=== PATIENT | female | born 1970 | race African-American/Black ===

== ENCOUNTER 2021-07-15 16:53 | Observation (INO) | payer MEDICARE, MEDICAID, SELFPAY ==
[2021-07-15] VITALS (26 sets, daily range): BP systolic 82–163; BP diastolic 55–119; PULSE 60–82; RESP 10–27; TEMP 36.3–36.8; O2SAT 94–100
--- NOTE | ~2021-07-15 | XR_ITS ---
EXAMINATION: XR chest 1V portable INDICATION: Shortness of breath TECHNIQUE: Portable AP chest at 1723 hours COMPARISON: 09/26/2017 FINDINGS: Cardiomegaly is noted. There is a diffuse interstitial pattern. No definite pleural effusio n is identified. There is no pneumothorax. A dual-lead cardiac pacemaker of the left chest wall ends with leads in expected locations. IMPRESSION: 1. Cardiomegaly with moderate pulmonary edema. Reviewed, dictated and finalized at location A.
--- NOTE | 2021-07-15 17:02 | ECG_ITS ---
Measurements Intervals [place] Rate: 70 P: 55 ND: 196 QRS: -31 QRSD: 159 T: 81 QT: 446 QTc: 482 Interpretive Statements SINUS RHYTHM FREQUENT VENTRICULAR PREMATURE COMPLEXES BORDERLINE AV CONDUCTION DELAY LEFT BUNDLE BRANCH BLOCK ABNORMAL ECG Electronically Signed On 07-18-2021 14:42:46 CDT by Horacio Montes De Oca D.O.
--- NOTE | 2021-07-15 17:08 | ED.SOB ---
HPI - SOB/Dyspnea General Chief Complaint: Shortness of Breath/Dyspnea <Ryann Duncan PA-C - Last Filed: 07/15/21 22:27> Stated Complaint: SOB <Ryann Duncan PA-C - Last Filed: 07/15/21 22:27> Time Seen by Provider: 07/15/21 17:00 <DECLAN Caldwell Last Filed: 07/15/21 22:27> Source: patient <DECLAN Caldwell Last Filed: 07/15/21 22:27> Mode of arrival: EMS <DECLAN Caldwell Last Filed: 07/15/21 22:27> Limitations: no limitations <DECLAN Caldwell Last Filed: 07/15/21 22:27> History of Present Illness HPI Narrative: Patient is a 51 y/o F who presents to the ED via EMS with report of increased SOB. Patient has a history of CHF, CKD, pacemaker/defibrillator, diabetes mellitus, hypertension, hyperlipidemia, obesity. She chronically wears 2 L nasal cannula oxygen at home. She reports over the last week she has had increased shortness of breath with exertion and laying flat. She states she used to be able to walk from 1 end to her house to the other before she would feel short of breath but now she is only able to take a few steps before she has to stop and catch her breath. She also reports having increased bilateral lower extremity edema over the past week. She does take Lasix 40 mg twice a day. She states her large animal husbandry technician attempted to switch her to torsemide last week and she took this for 4 days but denied any relief of her fluid retention and stopped taking it, and has since switched back to her Lasix. Patient also reports having occasional cough and congestion, but denies any fever, chills, chest pain, abdominal pain, nausea, vomiting. Patient's wire stripping machine operator is Dr. Vo at [facility]. <Ryann Duncan PA-C - Last Filed: 07/15/21 22:27> Related Data Home Medications: Home Medications Medication Instructions Recorded Confirmed allopurinol 100 mg DAILY 07/15/21 07/16/21 bupropion HCl 300 mg PO DAILY 07/15/21 07/16/21 calcitriol 0.25 mcg PO DAILY 07/15/21 07/16/21 carvedilol 25 mg PO BID 07/15/21 07/16/21 empagliflozin [Jardiance] 10 mg PO DAILY 07/15/21 07/16/21 ergocalciferol (vitamin D2) 50,000 unit PO WEEKLY 07/15/21 07/16/21 escitalopram oxalate 20 mg PO DAILY 07/15/21 07/16/21 ferrous sulfate [FeroSul] 325 mg PO DAILY 07/15/21 07/16/21 furosemide 40 mg PO BID 07/15/21 07/16/21 insulin aspart U-100 [Novolog 23 unit SUBCUT DAILY 07/15/21 07/16/21 U-100 Insulin aspart] insulin detemir U-100 [Levemir 17 unit SUBCUT HS 07/15/21 07/16/21 FlexTouch U-100 Insuln] isosorbide mononitrate 30 mg PO DAILY 07/15/21 07/16/21 ivabradine [Corlanor] 5 mg PO BID 07/15/21 07/16/21 losartan 50 mg PO DAILY 07/15/21 07/16/21 quetiapine 400 mg PO HS 07/15/21 07/16/21 rosuvastatin 5 mg PO DAILY 07/15/21 07/16/21 albuterol sulfate 2 puff BYMOUTH DAILY PRN 07/16/21 07/16/21 <Ryann Duncan PA-C - Last Filed: 07/15/21 22:27> Allergies/Adverse Reactions: Allergies Allergy/AdvReac Type Severity Reaction Status Date / Time No Known Allergies Allergy Unverified 05/21/17 19:08 <Ryann Duncan PA-C - Last Filed: 07/15/21 22:27> Review of Systems Review of Systems: CONSTITUTIONAL: Denies fever, chills, or sweats. ENT: Reports congestion. Denies rhinorrhea, sore throat, or otalgia. CARDIOVASCULAR: Reports BLE edema, orthopnea. Denies chest pain. RESPIRATORY: Reports occasional cough, SOB, TELLO. GASTROINTESTINAL: Denies abdominal pain, nausea, vomiting. GENITOURINARY: Denies dysuria or hematuria. MUSCULOSKELETAL: Denies myalgia. NEUROLOGIC: Denies headache, numbness, or weakness. <Ryann Duncan PA-C - Last Filed: 07/15/21 22:27> All systems reviewed & are unremarkable except as noted in HPI and below <Ryann Duncan PA-C - Last Filed: 07/15/21 22:27> [facility] Past Medical History Medical History: Medical History Body mass index [BMI] 45.0-49.9, adult (04/04/18) Cardiac defibrilla
[2021-07-15 18:02] LABS: Basophils Percent Auto 0.3 % (0.2-1.2); Eosinophils Absolute Auto 0.1 K/mm3 (0-0.3); Eosinophils Percent Auto 2.1 % (0-4.4); Hematocrit 45.8 % (37.0-47.0); Hemoglobin 14.1 g/dL (12.0-15.0); Immature Granulocyte Absolute 0.02 K/mm3 (0.00-0.031); Immature Granulocyte Percent A 0.3 % (0-0.5); Lymphocytes Absolute Auto 1.05 K/mm3 (0.9-3.2); Lymphocytes Percent Auto 16.7 % (18.3-44.2); Mean Corpuscular HGB Conc 30.8 g/dl (32-36); Mean Corpuscular Hemoglobin 27.9 pg (26-34); Mean Corpuscular Volume 90.7 fl (80-100); Monocytes Absolute Auto 0.5 K/mm3 (0.1-0.6); Monocytes Percent Auto 8.1 % (2.6-8.5); Neutrophils Absolute Auto 4.6 K/mm3 (1.3-6.7); Neutrophils Percent Auto 72.5 % (45.5-73.1); Nucleated Red Blood Cells Perc 0.3 % (0.0-0.2); Platelet Count Result 149 k/mm3 (150-375); Red Blood Count 5.05 M/mm3 (4.2-5.4); Red Cell Distribution Width 18.9 % (11.5-14.5); White Blood Count 6.3 K/mm3 (4.5-10.0)
[2021-07-15 18:12] LABS: Alanine Aminotransferase 17 U/L (4-35); Alkaline Phosphatase 51 U/L (38-126); Anion Gap 4 mmol/L (8-16); Aspartate Amino Transferase 35 U/L (14-36); Bilirubin,Total 0.5 mg/dL (0.2-1.3); Blood Urea Nitrogen 57 mg/dL (7-17); Calcium 8.6 mg/dL (8.4-10.2); Carbon Dioxide 35 mmol/L (22-30); Chloride 104 mmol/L (98-107); Estimated CRCL calculation 32 ml/min; Estimated Glomerular Filt Rate 22; Glucose 113 mg/dL (65-110); Potassium 4.4 mmol/L (3.4-5.0); Sodium 143 mmol/L (137-145)
[2021-07-15 18:15] LABS: INR 1.2; Prothrombin Time 14.6 Seconds (11.1-14.7)
[2021-07-15 18:16] LABS: Partial Thromboplastin Time 31.8 SECONDS (22.3-36.8)
[2021-07-15 18:24] LABS: NT Pro B Type Natriuretic Pept 3180 pg/mL (5-100); Troponin I 0.029 ng/mL (0.000-0.034)
[2021-07-15] MEDS: FUROSEMIDE INJ 40 MG/4 ML VIAL IV PUSH (18:49)
[2021-07-15 20:12] LABS: SARS-CoV-2 RNA PCR Negative
--- NOTE | 2021-07-15 23:36 | ADMGEN ---
This patient, Bette Casper, was admitted to [facility] Surg Room 322-01. Patient/family oriented to hospital policies and general routines including ID bracelet, bed and alarms, visiting hours, pain management, procedures, bathroom and other care routines, personal items, smoking policy, room service/diet, and visiting hours. Information on how to activate the Rapid Response Team has been discussed. Patient/Family are encouraged to report perceived risks to care and to ask questions if they do not understand what they are told or what they should do.
[2021-07-16] VITALS (19 sets, daily range): BP systolic 112–147; BP diastolic 74–88; PULSE 60–85; RESP 16–26; TEMP 36.3–36.8; O2SAT 91–98; BMI 59.3
--- NOTE | 2021-07-16 | ECHO_ITS ---
Patient Info Name: Bette Casper Age: 51 years : 1970 Gender: Female Ht: 63 in Wt: 324 lbs BSA: 2.66 m2 HR: 77 bpm BP: 139 / 88 mmHg Heart Rhythm: Sinus Rhythm Technical Quality: Poor Exam Date: 07/16/2021 9:26 AM Exam Location: [facility] Pulmonary Exam Room: 322 Patient Status: Inpatient Admit Date: 07/15/2021 Staff Ordering Physician: Ryann Duncan PA-C Management Professor: [id number] Attending Provider: Aydin Madera DO Referring Physician: Dakota LEE; Exam Type: CA echo dop color flow w con Study Info Indications - chf exacerbation Complete two-dimensional, color flow and Doppler transthoracic echocardiogram is performed with contrast to opacify the left ventricle and to improve the deliniation of the left ventricle endocardial borders. Contrast/Agitated Saline Contrast/Ag. Saline: Definity Amount: --- ml Administered By: Geetha Giordano Existing IV Access: Yes IV Access Condition: patent with no signs of infiltration Reason for Poor Study: patient body habitus Summary 1. Left ventricular chamber dimension is severely enlarged. 2. Left ventricular systolic function is severely reduced, estimated at 20-25%. 3. There is no increased left ventricular wall thickness. 4. The left ventricular diastolic function is abnormal. 5. Left atrial chamber dimension is mildly enlarged. 6. There is mild mitral valve regurgitation. 7. There is mild tricuspid valve regurgitation. 8. Moderate pulmonary hypertension, estimated pulmonary arterial systolic pressure is 49 mmHg. 9. There is mild pulmonic regurgitation. Left Ventricle Left ventricular chamber dimension is severely enlarged. Left ventricular systolic function is severely reduced, estimated at 20-25%. There is no increased left ventricular wall thickness. The left ventricular diastolic function is abnormal. Right Ventricle Right ventricular chamber dimension is normal. Right ventricular systolic function is normal. Linear artifact in right ventricle suggestive of catheter(s), pacemaker lead(s), or ICD lead(s). Left Atria Left atrial chamber dimension is mildly enlarged. Right Atria Right atrial chamber dimension is normal. Atrial Septum Intact interatrial septum visualized by color flow imaging. Aortic Valve The aortic valve is trileaflet. There is mild aortic valve sclerosis. There is no aortic valve stenosis. There is trace aortic valve regurgitation. Pulmonic Valve The pulmonic valve is normal. There is no pulmonic valve stenosis. There is mild pulmonic regurgitation. Mitral Valve The mitral valve has normal leaflets. There is no mitral valve stenosis. There is mild mitral valve regurgitation. Tricuspid Valve The tricuspid valve leaflets are normal. There is no significant tricuspid valve stenosis. There is mild tricuspid valve regurgitation. Moderate pulmonary hypertension, estimated pulmonary arterial systolic pressure is 49 mmHg. Pericardium/Pleural The pericardium appears normal. There is trivial pericardial effusion. Inferior Vena Cava Dilated inferior vena cava with <50% collapse upon inspiration consistent with elevated right atrial pressure, 15 mmHg. Aorta The aortic root size at the sinus of Valsalva is normal. Left Ventricular Outflow Tract Name Value Normal ------
--- NOTE | 2021-07-16 00:21 | PM.IMHP ---
H&P: HPI History of Present Illness Date/Time: Greater than 30 minutes time spent reviewing chart, evaluating, treating, and counseling patient. Ancipitate greater admission greater than 48 hours, will admit as inpatient 07/16/21 00:21 51 yo F PMHx of depression, hypothyroidism, chronic RF on 2 L O2, asthma, JESSICA not on CPAP, NICM HFrEF s/p ICD (2018 TTE LVEF 20%), T2DM on insulin, CKD (prior Cr 2.2 in 2018). Patient states she has been having SOB for the past week. Reports her template maker had switched her from lasix to torsemide in the middle of June. She took it for four days, but felt like it was not working and went back on lasix. She states her legs have increasingly gotten more swollen as well as her abdomen. States he weight went up from 286 lbs to 321 lbs today noted in her psychiatrist office. She denies fevers/chills, cough, sore throat, chest pain, palpitations, n/v/d/c, dysuria, hematuria, blood in stool. In ED, patient's labs remarkable for plt 149, Cr 2.7, BNP 3180 with normal troponin. CXR c/w pulmonary edema. Patient given dose of IV lasix 40 mg. Chief Complaint: SOB Review of Systems Review of Systems: 10 point ROS completed, negative unless otherwise specified per HPI [facility] Past Medical History Medical History (Updated 07/16/21 @ 00:39 by Aydin Madera DO) Body mass index [BMI] 45.0-49.9, adult (04/04/18) Cardiac defibrillator in place Cardiac defibrillator in place Chronic kidney disease, stage III (moderate) Congestive heart failure, unspecified Dependence on supplemental oxygen Essential hypertension JESSICA (obstructive sleep apnea) Pacemaker Type 2 diabetes mellitus with hyperglycemia, with long-term current use of insulin Family History Family History Grandparent Diabetes mellitus Hypertension Sibling Patient's sister is in good health Patient's brother is in good health Diabetes mellitus Asthma Father Family history of malignant neoplasm Patient's father is Mother Family history of malignant neoplasm Patient's mother is Social History Social History Smoking status: Never smoker Second hand tobacco smoke exposure: Yes Alcohol intake: never Substance use: never Spiritual care concerns: No Meds Home Medications and Allergies Home Medications Medication Instructions Recorded Confirmed Type allopurinol 100 mg DAILY 07/15/21 07/16/21 History bupropion HCl 300 mg PO DAILY 07/15/21 07/16/21 History calcitriol 0.25 mcg PO DAILY 07/15/21 07/16/21 History carvedilol 25 mg PO BID 07/15/21 07/16/21 History empagliflozin [Jardiance] 10 mg PO DAILY 07/15/21 07/16/21 History ergocalciferol (vitamin D2) 50,000 unit PO WEEKLY 07/15/21 07/16/21 History escitalopram oxalate 20 mg PO DAILY 07/15/21 07/16/21 History ferrous sulfate [FeroSul] 325 mg PO DAILY 07/15/21 07/16/21 History furosemide 40 mg PO BID 07/15/21 07/16/21 History insulin aspart U-100 [Novolog 23 unit SUBCUT DAILY 07/15/21 07/16/21 History U-100 Insulin aspart] insulin detemir U-100 [Levemir 17 unit SUBCUT HS 07/15/21 07/16/21 History FlexTouch U-100 Insuln] isosorbide mononitrate 30 mg PO DAILY 07/15/21 07/16/21 History ivabradine [Corlanor] 5 mg PO BID 07/15/21 07/16/21 History losartan 50 mg PO DAILY 07/15/21 07/16/21 History quetiapine 400 mg PO HS 07/15/21 07/16/21 History rosuvastatin 5 mg PO DAILY 07/15/21 07/16/21 History albuterol sulfate 2 puff BYMOUTH DAILY PRN 07/16/21 07/16/21 History Allergies Allergy/AdvReac Type Severity Reaction Status Date / Time No Known Allergies Allergy Unverified 05/21/17 19:08 Vital Signs Vital Signs - 24 hr 07/15/21 16:58 07/15/21 17:06 07/15/21 17:12 Temperature 97.3 F L Pulse Rate 70 69 78 Respiratory Rate 27 H 15 Blood Pressure 156/119 H Pulse Oximetry 96 97 07/15/21 17:13 05/03/22 17:1
[2021-07-16 00:50] LABS: Glucose Point of Care 103 mg/dl (65-105)
[2021-07-16] MEDS: QUEtiapine FUMARATE 100 MG TABLET 200 MG PO ×2 (02:41→20:40)
[2021-07-16] MEDS: FUROSEMIDE INJ 40 MG/4 ML VIAL IV PUSH ×3 (02:42→16:18)
[2021-07-16] MEDS: carvediloL 25 MG TABLET PO ×3 (02:42→20:40)
[2021-07-16 06:33] LABS: Basophils Percent Auto 0.5 % (0.2-1.2); Eosinophils Absolute Auto 0.2 K/mm3 (0-0.3); Eosinophils Percent Auto 3.4 % (0-4.4); Hematocrit 46.9 % (37.0-47.0); Hemoglobin 14.5 g/dL (12.0-15.0); Immature Granulocyte Absolute 0.03 K/mm3 (0.00-0.031); Immature Granulocyte Percent A 0.5 % (0-0.5); Immature Platelet Fraction Pct 7.7 % (0.9-11.2); Lymphocytes Absolute Auto 1.19 K/mm3 (0.9-3.2); Lymphocytes Percent Auto 21.4 % (18.3-44.2); Mean Corpuscular HGB Conc 30.9 g/dl (32-36); Mean Corpuscular Hemoglobin 28.1 pg (26-34); Mean Corpuscular Volume 90.9 fl (80-100); Mean Platelet Volume 11.5 fl (7.4-10.4); Monocytes Absolute Auto 0.6 K/mm3 (0.1-0.6); Monocytes Percent Auto 10.8 % (2.6-8.5); Neutrophils Absolute Auto 3.5 K/mm3 (1.3-6.7); Neutrophils Percent Auto 63.4 % (45.5-73.1); Platelet Count Result 134 k/mm3 (150-375); Red Blood Count 5.16 M/mm3 (4.2-5.4); Red Cell Distribution Width 19.2 % (11.5-14.5); White Blood Count 5.6 K/mm3 (4.5-10.0)
[2021-07-16 06:40] LABS: Hemoglobin A1C 7.3 % (<5.7)
[2021-07-16] MEDS: UMECLIDINIUM BROMIDE 62.5 MCG ELLIPTA 1 PUFF INHALATION (08:08)
[2021-07-16 08:11] LABS: Glucose Point of Care 95 mg/dl (65-105)
--- NOTE | 2021-07-16 08:12 | PC.NURSE ---
Contacted Cecelia STEINBERG about glucose reading of 95. Received orders to hold morning insulin of 18 units as well as put in bedside glucose management orders.
[2021-07-16 08:21] LABS: Alanine Aminotransferase 17 U/L (4-35); Albumin Level 3.8 g/dL (3.5-5.1); Alkaline Phosphatase 53 U/L (38-126); Anion Gap 4 mmol/L (8-16); Aspartate Amino Transferase 26 U/L (14-36); Bilirubin,Total 0.7 mg/dL (0.2-1.3); Blood Urea Nitrogen 52 mg/dL (7-17); Calcium 8.8 mg/dL (8.4-10.2); Carbon Dioxide 33 mmol/L (22-30); Chloride 103 mmol/L (98-107); Estimated CRCL calculation 35 ml/min; Estimated Glomerular Filt Rate 24; Glucose 86 mg/dL (65-110); Potassium 4.2 mmol/L (3.4-5.0); Sodium 140 mmol/L (137-145)
[2021-07-16] MEDS: ISOSORBIDE MONONITRATE 30 MG TAB.ER.24H PO (09:12)
[2021-07-16] MEDS: ESCITALOPRAM OXALATE 10 MG TABLET 20 MG PO (09:12)
[2021-07-16] MEDS: ASPIRIN 81 MG ENTERIC TABLET PO (09:12)
[2021-07-16] MEDS: calcitrioL 0.25 MCG CAPSULE PO ×2 (09:12→16:18)
[2021-07-16] MEDS: ROSUVASTATIN 5 MG TABLET PO (09:12)
[2021-07-16] MEDS: buPROPion HCL XL (24 HR) 150 MG TABCR 300 MG PO (09:12)
[2021-07-16] MEDS: PERFLUTREN LIPID MICROSPHERES 1.5 ML VIAL DILUTED TO 10 ML TOTAL VOLUME IV PUSH (09:41)
--- NOTE | 2021-07-16 09:41 | IVDEFINITY ---
Prior to administration of IV Definity the patient was educated on the risks and benefits of the imaging enhancing agent including potential adverse side effects. The patient verbalized understanding. Allergies were verified. No exclusion criteria were identified and at least one of the following inclusion criteria were met: 1) physician request, 2) patient technically difficult to image (per the [place] [employer] Echocardi[employer] guidelines of two or more segments not discernable within the apical view), or 3) questionable left ventricular function. ?
--- NOTE | 2021-07-16 09:42 | IVDEFINITY ---
Prior to administration of IV Definity the patient was educated on the risks and benefits of the imaging enhancing agent including potential adverse side effects. The patient verbalized understanding. Allergies were verified. No exclusion criteria were identified and at least one of the following inclusion criteria were met: 1) physician request, 2) patient technically difficult to image (per the [place] [employer] of Echocardiography guidelines of two or more segments not discernable within the apical view), or 3) questionable left ventricular function. ?
--- NOTE | 2021-07-16 10:07 | PM.CNCAR ---
Assessment and Plan Assessment and plan (1) Acute on chronic systolic (congestive) heart failure: Code(s): I50.23 - Acute on chronic systolic (congestive) heart failure Status: Acute Assessment and Plan: Continue furosemide 40 mg IV q.12 hours. Will give a dose of metolazone 2.5 mg p.o. x1 today. Will follow renal function with serial basic metabolic panels. Intake and output and daily weights. Educated patient on excessive amount of fluid intake is I think is she is drinking too much water at home which may be resulting in her volume overload. Corlanor 5 mg p.o. b.i.d. will be initiated. Continue isosorbide, losartan, carvedilol, Jardiance. 2D echocardiogram with Doppler will be ordered and reviewed. Low-salt diet. (2) JESSICA (obstructive sleep apnea): Code(s): G47.33 - Obstructive sleep apnea (adult) (pediatric) Status: Acute Assessment and Plan: She did tolerate CPAP last night. Hopefully she can have this arranged as an outpatient (3) Essential hypertension: Code(s): I10 - Essential (primary) hypertension Status: Acute Assessment and Plan: generally above goal (4) Cardiac defibrillator in place: Code(s): Z95.810 - Presence of automatic (implantable) cardiac defibrillator Status: Acute Assessment and Plan: ICD in place followed by Dr. Vo. (5) Acute kidney injury superimposed on CKD: Code(s): N17.9 - Acute kidney failure, unspecified; N18.9 - Chronic kidney disease, unspecified Status: Acute Assessment and Plan: Improved today. (6) Morbid obesity with BMI of 45.0-49.9, adult: Code(s): E66.01 - Morbid (severe) obesity due to excess calories; Z68.42 - Body mass index [BMI] 45.0-49.9, adult Status: Acute Assessment and Plan: Dietary and lifestyle modification for weight loss History of Present Illness History of Present Illness Consult date/time: 07/16/21 10:07 Requesting physician: Ryann Duncan PA-C Consult reason: congestive heart failure Reason For Visit: CHF Exacerbation Narrative: Reason for consultation: CHF Date of service 07/16/2021 Requesting provider Ryann Duncan History patient is a 51-year-old female who has a known history of nonischemic cardiomyopathy with ejection fraction of around 20% status post ICD. She follows with Dr. Vo at [facility]. She also has significant kidney disease followed by Dr. Casillas. Patient has been retaining fluid per patient and recently her nutritionist try to switch her from furosemide to torsemide. Unfortunately she felt like she only became more swollen and short of breath and she went back to the furosemide. Her symptoms have been progressively worsening over at least the past month or so. It was especially bad over the past week and her symptoms became so severe that she came to the hospital because of worsening shortness of breath as well as dyspnea. She was short of breath by doing most any activity and even somewhat wall at rest. She does describe paroxysmal nocturnal dyspnea. No orthopnea. No syncope, presyncope, defibrillations. No chest pain. She has had worsening edema. She does describe occasional palpitations and irregular heartbeat. In the emergency department she was found to have an elevated BNP as well as a chest x-ray showing moderate pulmonary vascular congestion as well as cardiomegaly. She was started on IV diuretics and Cardiology consultation was placed. Review of Systems Review of Systems: All systems reviewed & are unremarkable except as noted in HPI and below Constitutional: Constitutional: Reports weakness Eyes: Eyes: Denies blurry vision ENT: Reports Normal hearing present Cardiovascular: Cardiovascular: Denies chest pain, Reports pedal edema and Reports leg edema Respiratory: Respiratory: Reports cough, Reports dyspnea and Reports dyspnea on exertion Gastrointestinal: Gastrointestinal: Denies abdominal p
--- NOTE | 2021-07-16 10:54 | PM.IMPN ---
Progress Note: A&P Assessment and Plan (1) Acute kidney injury superimposed on CKD: Code(s): N17.9 - Acute kidney failure, unspecified; N18.9 - Chronic kidney disease, unspecified Status: Acute Assessment and Plan: Non-oliguric. Continue to monitor. Hold allopurinol, continue calcitriol Patient has a known history of kidney disease and follows Dr. Casillas. Patient has been increasing fluid retention therefore her clam treader tried to switch her from furosemide to torsemide. (2) Essential hypertension: Code(s): I10 - Essential (primary) hypertension Status: Acute Assessment and Plan: meds as per HF problem (3) JESSICA (obstructive sleep apnea): Code(s): G47.33 - Obstructive sleep apnea (adult) (pediatric) Status: Acute Assessment and Plan: Patient was able to tolerate the CPAP tonight, will attempt to arrange a sleep study tonight in order to arrange outpatient setup follow-up with PCP (4) Hyperlipidemia: Code(s): E78.5 - Hyperlipidemia, unspecified Status: Acute Assessment and Plan: Continue crestor (5) Type 2 diabetes mellitus with hyperglycemia, with long-term current use of insulin: Code(s): E11.65 - Type 2 diabetes mellitus with hyperglycemia; Z79.4 - exterminator (current) use of insulin Status: Acute Assessment and Plan: Patient takes levemir 17 U QHS and novolog 23 qam and 10 U qpm at home. Will start lantus 17 U and insulin aspart 18 U qAM and 5 U qpm. Check A1c Accu-Cheks AC and HS (6) Depression: Code(s): F32.A - Depression, unspecified Status: Acute Assessment and Plan: continue seroquel and lexapro (7) Asthma: Code(s): J45.909 - Unspecified asthma, uncomplicated Status: Acute Assessment and Plan: albuterol prn and encruse (8) Thrombocytopenia: Code(s): D69.6 - Thrombocytopenia, unspecified Status: Acute Assessment and Plan: unclear etiology. continue to monitor (9) Cardiac defibrillator in place: Code(s): Z95.810 - Presence of automatic (implantable) cardiac defibrillator Status: Acute Assessment and Plan: ICD in place followed by Dr. Vo at [facility], no acute issues (10) Morbid obesity with BMI of 45.0-49.9, adult: Code(s): E66.01 - Morbid (severe) obesity due to excess calories; Z68.42 - Body mass index [BMI] 45.0-49.9, adult Status: Acute Assessment and Plan: Consult registered dietitian to discuss nutritional lifestyle modifications for weight loss (11) Acute on chronic systolic (congestive) heart failure: Code(s): I50.23 - Acute on chronic systolic (congestive) heart failure Status: Acute Assessment and Plan: Monitor vital signs, I&Os, BUN/creatinine, daily weights, neuro status and patient is a fall risk Monitor serum electrolytes, Keep serum Potassium>4 and serum Magnesium>2 and CBC Obtain an Echocardiogram Lasix 40 mg IV q12H Consult cardiology for further management, appreciate assistance and recommendations Corlanor 5 mg p.o. b.i.d. will be initiated by Cardiology. Continue isosorbide, losartan, carvedilol, Jardiance. Chest x-ray in the emergency department revealed moderate pulmonary vascular congestion as well as cardiomegaly Administer metolazone 2.5 mg p.o. x1 per cardiology Fluid restriction Low-salt diet Subjective Date/time seen: 07/16/21 10:54 Patient denies any acute issues this morning denies any chest pain shortness, nausea, vomiting upset stomach diarrhea. Patient will have an echocardiogram performed this morning. Cardiology evaluated the patient and continued furosemide 40 mg b.i.d. and administered an additional dose of metolazone 2.5 mg p.o. x1. Patient denies any acute concerns at this time. Continues to diurese. Review of Systems Review of Systems: All systems reviewed & are unremarkable except as noted in HPI and below Exam Narrative: General: No
[2021-07-16 11:28] LABS: Glucose Point of Care 229 mg/dl (65-105)
--- NOTE | 2021-07-16 14:46 | PCNSR ---
On 07/16/21, the student, Nicole Arvizu, provided care and completed [facility] documentation on this patient. I have reviewed the student's documentation and agree with the findings.
--- NOTE | 2021-07-16 15:27 | PCCPR ---
documented EF 25%
[2021-07-16] MEDS: metOLazone 2.5 MG TABLET PO (16:18)
[2021-07-16 16:47] LABS: Glucose Point of Care 244 mg/dl (65-105)
[2021-07-16] MEDS: INSULIN ASPART (*BKC) 100 UNITS/ML SUB-Q (17:21)
[2021-07-16] MEDS: FERROUS SULFATE 324 MG TABLET PO (20:40)
[2021-07-16] MEDS: INSULIN GLARGINE (*BKC) 100 UNITS/ML 17 UNITS SUB-Q (20:40)
[2021-07-16 20:50] LABS: Glucose Point of Care 297 mg/dl (65-105)
[2021-07-17] VITALS (15 sets, daily range): BP systolic 140–156; BP diastolic 70–95; PULSE 68–82; RESP 16–20; TEMP 36.1–36.7; O2SAT 92–97
[2021-07-17 06:34] LABS: Basophils Percent Auto 0.3 % (0.2-1.2); Eosinophils Absolute Auto 0.1 K/mm3 (0-0.3); Eosinophils Percent Auto 2.2 % (0-4.4); Hematocrit 47.7 % (37.0-47.0); Hemoglobin 14.8 g/dL (12.0-15.0); Immature Granulocyte Absolute 0.02 K/mm3 (0.00-0.031); Immature Granulocyte Percent A 0.3 % (0-0.5); Lymphocytes Absolute Auto 0.96 K/mm3 (0.9-3.2); Lymphocytes Percent Auto 15.2 % (18.3-44.2); Mean Corpuscular Hemoglobin 27.9 pg (26-34); Mean Platelet Volume 12.7 fl (7.4-10.4); Monocytes Absolute Auto 0.7 K/mm3 (0.1-0.6); Monocytes Percent Auto 11.6 % (2.6-8.5); Neutrophils Absolute Auto 4.4 K/mm3 (1.3-6.7); Neutrophils Percent Auto 70.4 % (45.5-73.1); Platelet Count Result 159 k/mm3 (150-375); White Blood Count 6.3 K/mm3 (4.5-10.0)
[2021-07-17 07:45] LABS: Glucose Point of Care 177 mg/dl (65-105)
[2021-07-17] MEDS: INSULIN ASPART (*BKC) 100 UNITS/ML 18 UNITS SUB-Q (08:50)
[2021-07-17] MEDS: buPROPion HCL XL (24 HR) 150 MG TABCR 300 MG PO (08:54)
[2021-07-17] MEDS: ISOSORBIDE MONONITRATE 30 MG TAB.ER.24H PO (08:54)
[2021-07-17] MEDS: ASPIRIN 81 MG ENTERIC TABLET PO (08:54)
[2021-07-17] MEDS: FUROSEMIDE INJ 40 MG/4 ML VIAL IV PUSH ×2 (08:54→17:43)
[2021-07-17] MEDS: carvediloL 25 MG TABLET PO ×2 (08:54→21:02)
[2021-07-17] MEDS: ROSUVASTATIN 5 MG TABLET PO (08:54)
[2021-07-17] MEDS: calcitrioL 0.25 MCG CAPSULE PO ×2 (08:55→17:43)
[2021-07-17] MEDS: ESCITALOPRAM OXALATE 10 MG TABLET 20 MG PO (08:55)
[2021-07-17] MEDS: UMECLIDINIUM BROMIDE 62.5 MCG ELLIPTA 1 PUFF INHALATION (08:57)
--- NOTE | 2021-07-17 11:33 | PM.IMPN ---
Progress Note: A&P Assessment and Plan (1) Acute kidney injury superimposed on CKD: Code(s): N17.9 - Acute kidney failure, unspecified; N18.9 - Chronic kidney disease, unspecified Status: Acute Assessment and Plan: Non-oliguric. Continue to monitor. Hold allopurinol, continue calcitriol Patient has a known history of kidney disease and follows Dr. Casillas. Patient has been increasing fluid retention therefore her acute dialysis registered nurse tried to switch her from furosemide to torsemide. (2) Essential hypertension: Code(s): I10 - Essential (primary) hypertension Status: Acute Assessment and Plan: meds as per HF problem (3) JESSICA (obstructive sleep apnea): Code(s): G47.33 - Obstructive sleep apnea (adult) (pediatric) Status: Acute Assessment and Plan: Patient was able to tolerate the CPAP tonight, will attempt to arrange a sleep study tonight in order to arrange outpatient setup follow-up with PCP (4) Hyperlipidemia: Code(s): E78.5 - Hyperlipidemia, unspecified Status: Acute Assessment and Plan: Continue crestor (5) Type 2 diabetes mellitus with hyperglycemia, with long-term current use of insulin: Code(s): E11.65 - Type 2 diabetes mellitus with hyperglycemia; Z79.4 - barrel tester (current) use of insulin Status: Acute Assessment and Plan: Patient takes levemir 17 U QHS and novolog 23 qam and 10 U qpm at home. Will start lantus 17 U and insulin aspart 18 U qAM and 5 U qpm. Check A1c Accu-Cheks AC and HS (6) Depression: Code(s): F32.A - Depression, unspecified Status: Acute Assessment and Plan: continue seroquel and lexapro (7) Asthma: Code(s): J45.909 - Unspecified asthma, uncomplicated Status: Acute Assessment and Plan: albuterol prn and encruse (8) Thrombocytopenia: Code(s): D69.6 - Thrombocytopenia, unspecified Status: Acute Assessment and Plan: unclear etiology. continue to monitor (9) Cardiac defibrillator in place: Code(s): Z95.810 - Presence of automatic (implantable) cardiac defibrillator Status: Acute Assessment and Plan: ICD in place followed by Dr. Vo at [facility], [place], no acute issues (10) Morbid obesity with BMI of 45.0-49.9, adult: Code(s): E66.01 - Morbid (severe) obesity due to excess calories; Z68.42 - Body mass index [BMI] 45.0-49.9, adult Status: Acute Assessment and Plan: Consult registered dietitian to discuss nutritional lifestyle modifications for weight loss (11) Acute on chronic systolic (congestive) heart failure: Code(s): I50.23 - Acute on chronic systolic (congestive) heart failure Status: Acute Assessment and Plan: Monitor vital signs, I&Os, BUN/creatinine, daily weights, neuro status and patient is a fall risk Monitor serum electrolytes, Keep serum Potassium>4 and serum Magnesium>2 and CBC Echocardiogram reviewed, revealed an LVEF of 20-25% Lasix 40 mg IV q12H Consult cardiology for further management, appreciate assistance and recommendations Corlanor 5 mg p.o. b.i.d. will be initiated by Cardiology. Continue isosorbide, losartan, carvedilol, Jardiance. Chest x-ray in the emergency department revealed moderate pulmonary vascular congestion as well as cardiomegaly Administer metolazone 2.5 mg p.o. x1 per cardiology, patient refused metolazone on 07/16/2021 Fluid restriction Low-salt diet Subjective Date/time seen: 07/17/21 11:33 Patient is alert and oriented. Although she does have an odd affect. Patient could not recall information from yesterday nor did she recall medication changes. Attempted to discuss her echocardiogram results. The patient did not understand completely. Also discussed her need to wear a CPAP during the night and will perform a nocturnal study. Patient reported that she had a CPAP in the past although she was unable to independently put the mask on. Patient also s
[2021-07-17 11:52] LABS: Glucose Point of Care 100 mg/dl (65-105)
--- NOTE | 2021-07-17 13:00 | PC.NURSE ---
Faxed [facility] and [facility].
--- NOTE | 2021-07-17 13:37 | PM.PNCARD ---
Progress Note: A&P Assessment and Plan (1) Acute on chronic systolic (congestive) heart failure: Code(s): I50.23 - Acute on chronic systolic (congestive) heart failure Status: Acute Assessment and Plan: Acute on chronic systolic heart failure. Improving. Continue furosemide 40 mg IV q.12 hours. Will give another dose of metolazone 2.5mg x 1. If she continues to diurese well, anticipate discharge within the next 1-2 days. Will follow renal function with serial basic metabolic panels. Accurate intake and output Daily weights CHF education Fluid restriction NORM hose Continue isosorbide, losartan, carvedilol, Jardiance, and corlanor. Civil Division Commander Deputy Sheriff c/s to review low sodium diet (2) JESSICA (obstructive sleep apnea): Code(s): G47.33 - Obstructive sleep apnea (adult) (pediatric) Status: Acute Assessment and Plan: She did tolerate CPAP last night. Hopefully she can have this arranged as an outpatient (3) Essential hypertension: Code(s): I10 - Essential (primary) hypertension Status: Acute Assessment and Plan: generally above goal (4) Cardiac defibrillator in place: Code(s): Z95.810 - Presence of automatic (implantable) cardiac defibrillator Status: Acute Assessment and Plan: ICD in place followed by Dr. Vo. (5) Acute kidney injury superimposed on CKD: Code(s): N17.9 - Acute kidney failure, unspecified; N18.9 - Chronic kidney disease, unspecified Status: Acute Assessment and Plan: BMP from today pending (6) Morbid obesity with BMI of 45.0-49.9, adult: Code(s): E66.01 - Morbid (severe) obesity due to excess calories; Z68.42 - Body mass index [BMI] 45.0-49.9, adult Status: Acute Assessment and Plan: Dietary and lifestyle modification for weight loss Subjective Date/time seen: 07/17/21 13:37 Cardiology follow up for CHF, AUDI Feels better today. Has noticed significant improvement in her swelling. Breathing is better. Has questions regarding low sodium diet and heart healthy diet. Wants to discuss with computer typesetter. Wants to go home today, discussed with her that she's not yet ready for discharge in my opinion. Review of Systems Review of Systems: All systems reviewed & are unremarkable except as noted in HPI and below Constitutional: Constitutional: Denies excessive sweating, Denies headache(s) and Reports weakness Eyes: Eyes: Denies blurry vision ENT: Reports Normal hearing present, Denies headache(s) and Denies neck pain Cardiovascular: Cardiovascular: Denies chest pain, Reports pedal edema, Reports leg edema, Reports dyspnea and Reports dyspnea on exertion Respiratory: Respiratory: Reports cough, Reports dyspnea and Reports dyspnea on exertion Gastrointestinal: Gastrointestinal: Denies abdominal pain Genitourinary: Genitourinary: Denies flank pain Musculoskeletal: Musculoskeletal: Denies neck pain Integumentary/Breasts: Skin/Breast: Denies dry skin Neurologic: Reports Normal hearing present, Denies headache(s) and Reports weakness Psychiatric: Psychiatric: Denies anxiety Endocrine: Endocrine: Denies excessive sweating Hematologic/Lymphatic: Hematologic/Lymphatic: Denies easy bleeding Allergic/Immunologic: Allergic/Immunologic: Denies GI upset with certain foods Exam Narrative: Awake alert and oriented appears stated age Const: General: comfortable and no acute distress HENMT: General nose exam: Normal nares present Eyes: Sclera: sclerae normal Neck: Neck: supple and no JVD Resp: Auscultation: crackles and diminished lung sounds Cardio: Rate: regular rate Rhythm: regular rhythm GI: Inspection: non-distended Auscultation: normal bowel sounds Skin: General skin exam: normal color Neuro: Cranial nerves: Yes Normal hearing present Speech: normal speech Extrem: General: edema and pedal edema Psych: Mental Status: mental status grossly normal Objective D
[2021-07-17 15:16] LABS: Anion Gap 7 mmol/L (8-16); Blood Urea Nitrogen 55 mg/dL (7-17); Calcium 9.2 mg/dL (8.4-10.2); Carbon Dioxide 37 mmol/L (22-30); Chloride 99 mmol/L (98-107); Estimated CRCL calculation 35 ml/min; Estimated Glomerular Filt Rate 24; Glucose 160 mg/dL (65-110); Potassium 4.3 mmol/L (3.4-5.0); Sodium 143 mmol/L (137-145)
[2021-07-17 16:45] LABS: Glucose Point of Care 159 mg/dl (65-105)
[2021-07-17] MEDS: metOLazone 2.5 MG TABLET PO (17:10)
[2021-07-17] MEDS: TOLNAFTATE 1% POWDER 45 GM BTL 1 APPLIC TOPICAL (17:11)
--- NOTE | 2021-07-17 20:13 | PCRCNOTE ---
Patient evaluated for Apnea Study. Patient states she is receiving IV Lasix and she is up many times through the night to urinate. Sales Support Coordinator does not feel this would support an optimal sleep study so I will hold the study and re-evaluate tomorrow night. NICOL Barnes notified.
[2021-07-17] MEDS: INSULIN GLARGINE (*BKC) 100 UNITS/ML 17 UNITS SUB-Q (21:00)
[2021-07-17] MEDS: FERROUS SULFATE 324 MG TABLET PO (21:03)
[2021-07-17] MEDS: QUEtiapine FUMARATE 100 MG TABLET 200 MG PO (21:03)
[2021-07-17 22:21] LABS: Glucose Point of Care 207 mg/dl (65-105)
[2021-07-18] VITALS (8 sets, daily range): BP systolic 148; BP diastolic 74; PULSE 68–89; RESP 15–20; TEMP 36.7; O2SAT 91–97
[2021-07-18] MEDS: UMECLIDINIUM BROMIDE 62.5 MCG ELLIPTA 1 PUFF INHALATION (08:12)
[2021-07-18 08:25] LABS: Glucose Point of Care 174 mg/dl (65-105)
[2021-07-18] MEDS: ROSUVASTATIN 5 MG TABLET PO (08:35)
[2021-07-18] MEDS: buPROPion HCL XL (24 HR) 150 MG TABCR 300 MG PO (08:35)
[2021-07-18] MEDS: ASPIRIN 81 MG ENTERIC TABLET PO (08:35)
[2021-07-18] MEDS: ESCITALOPRAM OXALATE 10 MG TABLET 20 MG PO (08:35)
[2021-07-18] MEDS: calcitrioL 0.25 MCG CAPSULE PO (08:35)
[2021-07-18] MEDS: carvediloL 25 MG TABLET PO (08:35)
[2021-07-18] MEDS: ISOSORBIDE MONONITRATE 30 MG TAB.ER.24H PO (08:35)
[2021-07-18] MEDS: TOLNAFTATE 1% POWDER 45 GM BTL 1 APPLIC TOPICAL (08:36)
[2021-07-18] MEDS: INSULIN ASPART (*BKC) 100 UNITS/ML 18 UNITS SUB-Q (08:36)
[2021-07-18 09:08] LABS: Basophils Percent Auto 0.4 % (0.2-1.2); Eosinophils Absolute Auto 0.1 K/mm3 (0-0.3); Eosinophils Percent Auto 1.8 % (0-4.4); Hematocrit 47.6 % (37.0-47.0); Hemoglobin 15.3 g/dL (12.0-15.0); Immature Granulocyte Absolute 0.01 K/mm3 (0.00-0.031); Immature Granulocyte Percent A 0.1 % (0-0.5); Lymphocytes Absolute Auto 1.06 K/mm3 (0.9-3.2); Lymphocytes Percent Auto 15.6 % (18.3-44.2); Mean Corpuscular HGB Conc 32.1 g/dl (32-36); Mean Corpuscular Hemoglobin 28.1 pg (26-34); Mean Corpuscular Volume 87.5 fl (80-100); Monocytes Absolute Auto 0.8 K/mm3 (0.1-0.6); Neutrophils Absolute Auto 4.8 K/mm3 (1.3-6.7); Neutrophils Percent Auto 71.1 % (45.5-73.1); Platelet Count Result 149 k/mm3 (150-375); Red Blood Count 5.44 M/mm3 (4.2-5.4); Red Cell Distribution Width 18.7 % (11.5-14.5); White Blood Count 6.8 K/mm3 (4.5-10.0)
[2021-07-18 09:21] LABS: Alanine Aminotransferase 16 U/L (4-35); Albumin Level 3.9 g/dL (3.5-5.1); Alkaline Phosphatase 58 U/L (38-126); Aspartate Amino Transferase 27 U/L (14-36); Bilirubin,Total 1.1 mg/dL (0.2-1.3); Blood Urea Nitrogen 55 mg/dL (7-17); Calcium 9.7 mg/dL (8.4-10.2); Carbon Dioxide > 40 mmol/L (22-30); Chloride 95 mmol/L (98-107); Estimated CRCL calculation 35 ml/min; Estimated Glomerular Filt Rate 24; Glucose 169 mg/dL (65-110); Magnesium 2.3 mg/dL (1.6-2.3); Potassium 4.3 mmol/L (3.4-5.0); Sodium 142 mmol/L (137-145)
--- NOTE | 2021-07-18 10:33 | PM.PNCARD ---
Progress Note: A&P Assessment and Plan (1) Acute on chronic systolic (congestive) heart failure: Code(s): I50.23 - Acute on chronic systolic (congestive) heart failure Status: Acute Assessment and Plan: Acute on chronic systolic heart failure. Improving. Shift her to oral furosemide 40mg b.i.d. 2L fluid restriction at home CHF education NORM [place] Continue isosorbide, losartan, carvedilol, Jardiance, and corlanor. Group Marketing Vp c/s to review low sodium diet She needs to arrange follow up with Dr. Vo within 2 weeks of discharge. (2) JESSICA (obstructive sleep apnea): Code(s): G47.33 - Obstructive sleep apnea (adult) (pediatric) Status: Acute Assessment and Plan: She's been tolerating CPAP. Hopefully she can have this arranged as an outpatient (3) Essential hypertension: Code(s): I10 - Essential (primary) hypertension Status: Acute Assessment and Plan: generally above goal (4) Cardiac defibrillator in place: Code(s): Z95.810 - Presence of automatic (implantable) cardiac defibrillator Status: Acute Assessment and Plan: ICD in place followed by Dr. Vo. (5) Acute kidney injury superimposed on CKD: Code(s): N17.9 - Acute kidney failure, unspecified; N18.9 - Chronic kidney disease, unspecified Status: Acute Assessment and Plan: BMP from today pending (6) Morbid obesity with BMI of 45.0-49.9, adult: Code(s): E66.01 - Morbid (severe) obesity due to excess calories; Z68.42 - Body mass index [BMI] 45.0-49.9, adult Status: Acute Assessment and Plan: Dietary and lifestyle modification for weight loss Subjective Date/time seen: 07/18/21 10:33 Cardiology follow up for CHF She's feeling well today. No swelling, denies any shortness of breath. She wants to go home. Review of Systems Review of Systems: All systems reviewed & are unremarkable except as noted in HPI and below Constitutional: Constitutional: Denies excessive sweating, Denies headache(s) and Reports weakness Eyes: Eyes: Denies blurry vision ENT: Reports Normal hearing present, Denies headache(s) and Denies neck pain Cardiovascular: Cardiovascular: Denies chest pain, Reports pedal edema, Reports leg edema, Reports dyspnea and Reports dyspnea on exertion Respiratory: Respiratory: Reports cough, Reports dyspnea and Reports dyspnea on exertion Gastrointestinal: Gastrointestinal: Denies abdominal pain Genitourinary: Genitourinary: Denies flank pain Musculoskeletal: Musculoskeletal: Denies neck pain Integumentary/Breasts: Skin/Breast: Denies dry skin Neurologic: Reports Normal hearing present, Denies headache(s) and Reports weakness Psychiatric: Psychiatric: Denies anxiety Endocrine: Endocrine: Denies excessive sweating Hematologic/Lymphatic: Hematologic/Lymphatic: Denies easy bleeding Allergic/Immunologic: Allergic/Immunologic: Denies GI upset with certain foods Exam Narrative: Awake alert and oriented appears stated age Const: General: comfortable and no acute distress HENMT: General nose exam: Normal nares present Eyes: Sclera: sclerae normal Neck: Neck: supple and no JVD Chest: Other: No reproducible chest wall pain to palpation. Resp: Auscultation: crackles and diminished lung sounds Cardio: Rate: regular rate Rhythm: regular rhythm GI: Inspection: non-distended Auscultation: normal bowel sounds Skin: General skin exam: normal color Neuro: Cranial nerves: Yes Normal hearing present Speech: normal speech Extrem: General: no edema and no pedal edema Psych: Mental Status: mental status grossly normal Objective Data Vital Signs Vital Signs: Vital Signs - 24 hr 07/17/21 12:00 07/17/21 15:54 07/17/21 16:00 Temperature 36.3 C L Pulse Rate 71 78 75 Respiratory Rate 18 Blood Pressure 156/95 H Pulse Oximetry 94 07/17/21 21:00 07/17/21 21:02 07/17/21 21:35 Temperature 36.7 C Pulse
[2021-07-18 12:07] LABS: Glucose Point of Care 107 mg/dl (65-105)
--- NOTE | 2021-07-18 12:31 | PM.DS ---
DS: Admitting Diagnosis Discharge Date 07/18/2021 Admitting Diagnosis Chronic kidney disease Acute on chronic systolic heart failure JESSICA DS: Discharge Diagnosis Discharge Diagnosis (1) Acute kidney injury superimposed on CKD: Code(s): N17.9 - Acute kidney failure, unspecified; N18.9 - Chronic kidney disease, unspecified Status: Acute Assessment and Plan: Non-oliguric. Continue to monitor. Hold allopurinol, continue calcitriol Patient has a known history of kidney disease and follows Dr. Casillas. Patient has been increasing fluid retention therefore her voltage regulator assembler tried to switch her from furosemide to torsemide. --stable (2) Essential hypertension: Code(s): I10 - Essential (primary) hypertension Status: Acute Assessment and Plan: meds as per HF problem (3) JESSICA (obstructive sleep apnea): Code(s): G47.33 - Obstructive sleep apnea (adult) (pediatric) Status: Acute Assessment and Plan: Patient was able to tolerate the CPAP tonight, will attempt to arrange a sleep study tonight in order to arrange outpatient setup follow-up with PCP (4) Hyperlipidemia: Code(s): E78.5 - Hyperlipidemia, unspecified Status: Acute Assessment and Plan: Continue crestor (5) Type 2 diabetes mellitus with hyperglycemia, with long-term current use of insulin: Code(s): E11.65 - Type 2 diabetes mellitus with hyperglycemia; Z79.4 - group home (current) use of insulin Status: Acute Assessment and Plan: Patient takes levemir 17 U QHS and novolog 23 qam and 10 U qpm at home. Will start lantus 17 U and insulin aspart 18 U qAM and 5 U qpm. Check A1c Accu-Cheks AC and HS (6) Depression: Code(s): F32.A - Depression, unspecified Status: Acute Assessment and Plan: continue seroquel and lexapro (7) Asthma: Code(s): J45.909 - Unspecified asthma, uncomplicated Status: Acute Assessment and Plan: albuterol prn and encruse (8) Thrombocytopenia: Code(s): D69.6 - Thrombocytopenia, unspecified Status: Acute Assessment and Plan: unclear etiology. continue to monitor (9) Cardiac defibrillator in place: Code(s): Z95.810 - Presence of automatic (implantable) cardiac defibrillator Status: Acute Assessment and Plan: ICD in place followed by Dr. Vo at [facility], no acute issues (10) Morbid obesity with BMI of 45.0-49.9, adult: Code(s): E66.01 - Morbid (severe) obesity due to excess calories; Z68.42 - Body mass index [BMI] 45.0-49.9, adult Status: Acute Assessment and Plan: Consult registered dietitian to discuss nutritional lifestyle modifications for weight loss (11) Acute on chronic systolic (congestive) heart failure: Code(s): I50.23 - Acute on chronic systolic (congestive) heart failure Status: Acute Assessment and Plan: Monitor vital signs, I&Os, BUN/creatinine, daily weights, neuro status and patient is a fall risk Monitor serum electrolytes, Keep serum Potassium>4 and serum Magnesium>2 and CBC Echocardiogram reviewed, revealed an LVEF of 20-25% Lasix 40 mg IV q12H Consult cardiology for further management, appreciate assistance and recommendations Corlanor 5 mg p.o. b.i.d. will be initiated by Cardiology. Continue isosorbide, losartan, carvedilol, Jardiance. Chest x-ray in the emergency department revealed moderate pulmonary vascular congestion as well as cardiomegaly Administer metolazone 2.5 mg p.o. x1 per cardiology, patient refused metolazone on 07/16/2021 Fluid restriction Low-salt diet --resolving DS: Summary Hospital Course Reason for hospitalization: Acute on chronic systolic heart failure Chronic kidney disease Hospital Course: Patient is a 51-year-old female with a past medical history of depression, hypothyroidism, chronic RF on 2 L of oxygen per nasal cannula, asthma, JESSICA not currently using CPAP at home due to limited ra
== END 2021-07-18 13:30 | disposition home or self-care (01) ==
LOC: ANHED 18:50 → ANH3MEDSUR 07-16 10:59
PROVIDERS: Nurse Practitioner; Physician Assistant; Admitting Provider Internal Medicine; Emergency Provider Emergency Medicine; PCP Internal Medicine Infectious Disease; Visit Provider Nurse Practitioner Family
DX: I13.0 Hypertensive heart and chronic kidney disease with heart failure and stage 1 through stage 4 chronic kidney disease, or unspecified chronic kidney disease (principal); I50.23 Acute on chronic systolic (congestive) heart failure; N17.9 Acute kidney failure, unspecified; N18.30 Chronic kidney disease, stage 3 unspecified; E11.22 Type 2 diabetes mellitus with diabetic chronic kidney disease; J45.909 Unspecified asthma, uncomplicated; D69.6 Thrombocytopenia, unspecified; E03.9 Hypothyroidism, unspecified; E66.01 Morbid (severe) obesity due to excess calories; E78.5 Hyperlipidemia, unspecified; G47.33 Obstructive sleep apnea (adult) (pediatric); F32.A Depression, unspecified; Z68.42 Body mass index [BMI] 45.0-49.9, adult; Z99.81 Dependence on supplemental oxygen; Z79.4 Long term (current) use of insulin; Z95.810 Presence of automatic (implantable) cardiac defibrillator; Z20.822 Contact with and (suspected) exposure to COVID-19
CPT/HCPCS: 36415; 71045; 80048; 80053; 82948; 83036; 83735; 83880; 84443; 84484; 85025; 85055; 85610; 85730; 93005; 94640; 94660; 96374; 96375; 96376; 99285; A9270; C8929; C9803; G0378; J1815; J1940; Q9957; U0003; U0005

== ENCOUNTER 2021-10-15 14:30 | Outpatient (RCR) | payer MEDICARE, MEDICAID, SELFPAY | END 2021-11-11 10:36 | disposition home or self-care (01) | LOC: ANHDMC 14:30 | PROVIDERS: PCP Internal Medicine Infectious Disease; Visit Provider Internal Medicine Infectious Disease | DX: E11.65 Type 2 diabetes mellitus with hyperglycemia (principal); Z71.89 Other specified counseling | CPT/HCPCS: 99199; G0108; G0109 ==

== ENCOUNTER 2021-10-17 19:20 | Inpatient (IN) | payer MEDICARE, MEDICAID, SELFPAY ==
[2021-10-17] VITALS (9 sets, daily range): BP systolic 104–155; BP diastolic 57–93; PULSE 61–74; RESP 12–20; TEMP 36.5–36.7; O2SAT 90–99
--- NOTE | ~2021-10-17 | XR_ITS ---
EXAMINATION: XR chest 2V DATE: 10/17/2021 19:57 INDICATION: Shortness of breath. TECHNIQUE: frontal and lateral views of the chest were obtained. COMPARISON: Chest radiograph dated 07/15/2021 FINDINGS: Cardiomegaly with pulmonary vascular congestion but with resolution of prior pulmonary edema. Trace a mount of fluid along the right minor fissure. No other airspace opacities or pneumothorax. Dual lead pacemaker/AICD seen with leads projecting over the expected locations of the right atrium and right v entricle. Mild thoracic kyphosis with chronic mild anterior wedging of a couple mid thoracic vertebra l bodies. IMPRESSION: 1. Cardiomegaly with pulmonary vascular congestion and trace right pleural effusion. Reviewed, dictated and finalized at location A. IMPRESSION: 1. Cardiomegaly with pulmonary vascular congestion and trace right pleural effu tunde.
--- NOTE | 2021-10-17 19:31 | ECG_ITS ---
Measurements Intervals [place] Rate: 64 P: 48 NJ: 185 QRS: -37 QRSD: 142 T: 99 QT: 451 QTc: 467 Interpretive Statements SINUS RHYTHM WITH FREQUENT VENTRICULAR PREMATURE COMPLEXES LEFT AXIS DEVIATION [QRS AXIS < -30] INCOMPLETE LEFT BUNDLE BRANCH BLOCK [120+ ms QRS DURATION, 80+ ms Q/S IN V1/V2, 85+ ms R IN I/aVL/V5/V6] COMPARED TO ECG 07/15/2021 17:06:44 NO DIFFERENCE Electronically Signed On 10-18-2021 7:18:00 CDT by Larry Dougherty M.D.
--- NOTE | 2021-10-17 20:08 | ED.GENADULT ---
HPI - General Adult General Chief complaint: Shortness of Breath/Dyspnea Stated complaint: sob Time Seen by Provider: 10/17/21 19:52 History of Present Illness HPI narrative: This is a 50-year-old patient with a history of heart failure reduced ejection fraction COPD on home 2L O2 presents to ED with shortness of breath. Patient called EMS was found to be 86% on room air. She increased to 96% on 3 L nasal cannula. patient states that her shortness of breath scan progressively worse over the last 1 week. He is also notes she has lower extremity edema up to the knee. She has been taking 40 mg of Lasix b.i.d. with no effect. Patient states she is having a lot of trouble with a low-sodium diet. Patient denies chest pain, fever, chills, cough, abdominal pain, nausea vomiting or diarrhea. Related Data Home Medications Medication Instructions Recorded Confirmed allopurinol 100 mg tablet 100 mg DAILY 07/15/21 07/16/21 bupropion HCl 300 mg 24 hr tablet, 300 mg PO DAILY 07/15/21 07/16/21 extended release calcitriol 0.25 mcg capsule 0.25 mcg PO DAILY 07/15/21 07/16/21 carvedilol 25 mg tablet 25 mg PO BID 07/15/21 07/16/21 empagliflozin 10 mg tablet 10 mg PO DAILY 07/15/21 07/16/21 (Jardiance) ergocalciferol (vitamin D2) 1,250 50,000 unit PO WEEKLY 07/15/21 07/16/21 mcg (50,000 unit) capsule escitalopram oxalate 20 mg tablet 20 mg PO DAILY 07/15/21 07/16/21 ferrous sulfate 325 mg (65 mg 325 mg PO DAILY 07/15/21 07/16/21 iron) tablet (FeroSul) furosemide 40 mg tablet 40 mg PO BID 07/15/21 07/16/21 insulin aspart U-100 100 unit/mL 23 unit subcut DAILY 07/15/21 07/16/21 subcutaneous solution (Novolog U-100 Insulin aspart) insulin detemir U-100 100 unit/mL 17 unit subcut HS 07/15/21 07/16/21 (3 mL) subcutaneous pen (Levemir FlexTouch U-100 Insulin) isosorbide mononitrate 30 mg 30 mg PO DAILY 07/15/21 07/16/21 tablet,extended release 24 hr ivabradine 5 mg tablet (Corlanor) 5 mg PO BID 07/15/21 07/16/21 losartan 50 mg tablet 50 mg PO DAILY 07/15/21 07/16/21 quetiapine 400 mg tablet 400 mg PO HS 07/15/21 07/16/21 rosuvastatin 5 mg tablet 5 mg PO DAILY 07/15/21 07/16/21 albuterol sulfate 2 puff BYMOUTH DAILY PRN Shortness 07/16/21 07/16/21 Of Breath Allergies Allergy/AdvReac Type Severity Reaction Status Date / Time No Known Allergies Allergy Unverified 05/21/17 19:08 Review of Systems Review of Systems: CONSTITUTIONAL: Denies night sweats. EYES: No eye pain ENT: Denies rhinorrhea CARDIOVASCULAR: Denies palpitations, Admits peripheral edema RESPIRATORY: Denies hemoptysis GASTROINTESTINAL: Denies hematemesis GENITOURINARY: Denies hematuria. SKIN: Denies rash MUSCULOSKELETAL: Denies myalgia. NEUROLOGIC: Denies weakness. PSYCHIATRIC: Denies delusions [facility], [facility] Past Medical History Medical History Body mass index [BMI] 45.0-49.9, adult (04/04/18) Cardiac defibrillator in place Cardiac defibrillator in place Chronic kidney disease, stage III (moderate) Congestive heart failure, unspecified Dependence on supplemental oxygen Essential hypertension JESSICA (obstructive sleep apnea) Pacemaker Type 2 diabetes mellitus with hyperglycemia, with long-term current use of insulin Family History Family History Grandparent Diabetes mellitus Hypertension Sibling Patient's sister is in good health Patient's brother is in good health Diabetes mellitus Asthma Father Family history of malignant neoplasm Patient's father is Mother Family history of malignant neoplasm Patient's mother is Social History Social History Smoking status: Never smoker Second hand tobacco smoke exposure: Yes Alcohol intake: never Substance use: never Spiritual care concerns: No Exam Narrative: APPEARA
[2021-10-17] MEDS: FUROSEMIDE INJ 40 MG/4 ML VIAL IV PUSH (20:41)
[2021-10-17 20:44] LABS: Basophils Percent Auto 0.4 % (0.2-1.2); Eosinophils Absolute Auto 0.1 K/mm3 (0-0.3); Eosinophils Percent Auto 1.6 % (0-4.4); Hematocrit 41.5 % (37.0-47.0); Hemoglobin 12.8 g/dL (12.0-15.0); Immature Granulocyte Absolute 0.02 K/mm3 (0.00-0.031); Immature Granulocyte Percent A 0.4 % (0-0.5); Lymphocytes Absolute Auto 1.01 K/mm3 (0.9-3.2); Lymphocytes Percent Auto 18.3 % (18.3-44.2); Mean Corpuscular HGB Conc 30.8 g/dl (32-36); Mean Corpuscular Hemoglobin 26.6 pg (26-34); Mean Corpuscular Volume 86.3 fl (80-100); Mean Platelet Volume 13.3 fl (7.4-10.4); Monocytes Absolute Auto 0.6 K/mm3 (0.1-0.6); Neutrophils Absolute Auto 3.8 K/mm3 (1.3-6.7); Neutrophils Percent Auto 69.3 % (45.5-73.1); Platelet Count Result 178 k/mm3 (150-375); Red Blood Count 4.81 M/mm3 (4.2-5.4); Red Cell Distribution Width 19.1 % (11.5-14.5); White Blood Count 5.5 K/mm3 (4.5-10.0)
[2021-10-17 20:47] LABS: INR 1.3; Prothrombin Time 15.5 Seconds (11.1-14.7)
[2021-10-17 20:48] LABS: Partial Thromboplastin Time 30.6 SECONDS (22.3-36.8)
[2021-10-17 20:55] LABS: Alanine Aminotransferase 15 U/L (6-35); Albumin Level 3.4 g/dL (3.5-5.1); Alkaline Phosphatase 49 U/L (38-126); Anion Gap 6 mmol/L (8-16); Aspartate Amino Transferase 26 U/L (14-36); Bilirubin,Total 0.7 mg/dL (0.2-1.3); Blood Urea Nitrogen 26 mg/dL (7-17); Calcium 9.1 mg/dL (8.4-10.2); Carbon Dioxide 36 mmol/L (22-30); Chloride 99 mmol/L (98-107); Estimated CRCL calculation 42 ml/min; Estimated Glomerular Filt Rate 34; Glucose 108 mg/dL (65-110); Potassium 3.6 mmol/L (3.4-5.0); Sodium 141 mmol/L (137-145)
[2021-10-17 20:59] LABS: NT Pro B Type Natriuretic Pept 7330 pg/mL (5-100); Troponin I 0.034 ng/mL (0.000-0.034)
[2021-10-17 22:23] LABS: SARS-CoV-2 RNA PCR Negative
--- NOTE | 2021-10-17 23:20 | ADMGEN ---
This patient, Bette Casper, was admitted to Medical Room 261-01. Patient/family oriented to hospital policies and general routines including ID bracelet, bed and alarms, visiting hours, pain management, procedures, bathroom and other care routines, personal items, smoking policy, room service/diet, and visiting hours. Information on how to activate the Rapid Response Team has been discussed. Patient/Family are encouraged to report perceived risks to care and to ask questions if they do not understand what they are told or what they should do.
[2021-10-18] VITALS (10 sets, daily range): BP systolic 117–161; BP diastolic 60–93; PULSE 56–83; RESP 15–16; TEMP 35.7–36.7; O2SAT 93–99; BMI 56.0
--- NOTE | 2021-10-18 04:12 | PM.IMHP ---
H&P: HPI History of Present Illness Date/Time: 10/18/21 04:12 Chief Complaint: SOB, hypoxia, LE edema Narrative: Greater than 30 minutes spent reviewing chart, evaluating, treating, counseling patient. Anticipate a greater than 48 hour admission, will admit as inpatient. 51-year-old female past medical history of morbid obesity, depression, suspected JESSICA, chronic respiratory failure on 2 L, nonischemic heart failure with reduced ejection fraction status post ICD (07/2021 LVEF 20-25%), type 2 diabetes on insulin, CKD (baseline creatinine around 2). Presents with weight gain of about 20 lb since September, and over the past week worsening lower extremity edema, shortness of breath. Yesterday patient noted her oxygen was 86% and went up on her O2 to 3 L with improvement. Patient reports she has not been compliant with the 1.2 L fluid restriction and 2 g sodium diet restriction. Typical diuretic regimen is Lasix 40 b.i.d.. In ED, vitals stable. Labs notable for BNP 7330 (prior BNP 07/2021 on admission for heart failure exacerbation was 3180). Chest x-ray showing vascular congestion. Patient given a dose of IV Lasix 40 mg. Review of Systems Review of Systems: Ten point ROS reviewed, negative unless otherwise specified per HPI [facility] Past Medical History Medical History Body mass index [BMI] 45.0-49.9, adult (04/04/18) Cardiac defibrillator in place Cardiac defibrillator in place Chronic kidney disease, stage III (moderate) Congestive heart failure, unspecified Dependence on supplemental oxygen Essential hypertension JESSICA (obstructive sleep apnea) Pacemaker Type 2 diabetes mellitus with hyperglycemia, with long-term current use of insulin Family History Family History Grandparent Diabetes mellitus Hypertension Sibling Diabetes mellitus Patient's brother is in good health Patient's sister is in good health Asthma Father Patient's father is Mother Patient's mother is Other Family history of malignant neoplasm Social History Social History Smoking status: Never smoker Second hand tobacco smoke exposure: Yes Alcohol intake: never Substance use: never Spiritual care concerns: No Meds Home Medications and Allergies Home Medications Medication Instructions Recorded Confirmed Type allopurinol 100 mg tablet 100 mg DAILY 07/15/21 10/18/21 History bupropion HCl 300 mg 24 hr tablet, 300 mg PO DAILY 07/15/21 10/18/21 History extended release calcitriol 0.25 mcg capsule 0.25 mcg PO DAILY 07/15/21 10/18/21 History carvedilol 25 mg tablet 25 mg PO BID 07/15/21 10/18/21 History empagliflozin 10 mg tablet 10 mg PO DAILY 07/15/21 10/18/21 History (Jardiance) ergocalciferol (vitamin D2) 1,250 50,000 unit PO WEEKLY 07/15/21 10/18/21 History mcg (50,000 unit) capsule escitalopram oxalate 20 mg tablet 10 mg PO DAILY 07/15/21 10/18/21 History ferrous sulfate 325 mg (65 mg 325 mg PO DAILY 07/15/21 10/18/21 History iron) tablet (FeroSul) furosemide 40 mg tablet 40 mg PO BID 07/15/21 10/18/21 History insulin aspart U-100 100 unit/mL 23 unit subcut DAILY 07/15/21 10/18/21 History subcutaneous solution (Novolog U-100 Insulin aspart) insulin detemir U-100 100 unit/mL 10 unit subcut HS 07/15/21 10/18/21 History (3 mL) subcutaneous pen (Levemir FlexTouch U-100 Insulin) isosorbide mononitrate 30 mg 30 mg PO DAILY 07/15/21 10/18/21 History tablet,extended release 24 hr ivabradine 5 mg tablet (Corlanor) 5 mg PO BID 07/15/21 10/18/21 History losartan 50 mg tablet 50 mg PO DAILY 07/15/21 10/18/21 History quetiapine 400 mg tablet 200 mg PO HS 07/15/21 10/18/21 History rosuvastatin 5 mg tablet 5 mg PO DAILY 07/15/21 10/18/21 History albuterol sulfate 2 puff BYMOUTH DAILY PRN Shortness 05
[2021-10-18 06:32] LABS: Basophils Percent Auto 0.3 % (0.2-1.2); Eosinophils Absolute Auto 0.1 K/mm3 (0-0.3); Eosinophils Percent Auto 1.6 % (0-4.4); Hematocrit 42.4 % (37.0-47.0); Hemoglobin 13.3 g/dL (12.0-15.0); Immature Granulocyte Absolute 0.04 K/mm3 (0.00-0.031); Immature Granulocyte Percent A 0.6 % (0-0.5); Immature Platelet Fraction Pct 10.3 % (0.9-11.2); Lymphocytes Absolute Auto 1.23 K/mm3 (0.9-3.2); Lymphocytes Percent Auto 19.6 % (18.3-44.2); Mean Corpuscular HGB Conc 31.4 g/dl (32-36); Mean Corpuscular Hemoglobin 26.7 pg (26-34); Monocytes Absolute Auto 0.6 K/mm3 (0.1-0.6); Monocytes Percent Auto 9.6 % (2.6-8.5); Neutrophils Absolute Auto 4.3 K/mm3 (1.3-6.7); Neutrophils Percent Auto 68.3 % (45.5-73.1); Platelet Count Result 137 k/mm3 (150-375); Red Blood Count 4.99 M/mm3 (4.2-5.4); Red Cell Distribution Width 19.2 % (11.5-14.5); White Blood Count 6.3 K/mm3 (4.5-10.0)
[2021-10-18 06:57] LABS: Anion Gap 9 mmol/L (8-16); Blood Urea Nitrogen 26 mg/dL (7-17); Calcium 9.2 mg/dL (8.4-10.2); Carbon Dioxide 36 mmol/L (22-30); Chloride 97 mmol/L (98-107); Estimated CRCL calculation 44 ml/min; Estimated Glomerular Filt Rate 34; Glucose 158 mg/dL (65-110); Hemoglobin A1C 6.4 % (<5.7); Potassium 3.5 mmol/L (3.4-5.0); Sodium 142 mmol/L (137-145)
[2021-10-18 08:29] LABS: Glucose Point of Care 150 mg/dl (65-105)
[2021-10-18] MEDS: INSULIN ASPART (*BKC) 100 UNITS/ML 16 UNITS SUB-Q (09:06)
[2021-10-18] MEDS: allopurinoL 100 MG TABLET BY MOUTH (09:11)
[2021-10-18] MEDS: FERROUS SULFATE 324 MG TABLET PO (09:11)
[2021-10-18] MEDS: calcitrioL 0.25 MCG CAPSULE PO (09:11)
[2021-10-18] MEDS: LOSARTAN POTASSIUM 50 MG TABLET PO (09:12)
[2021-10-18] MEDS: ISOSORBIDE MONONITRATE 30 MG TAB.ER.24H PO (09:12)
[2021-10-18] MEDS: ASPIRIN 81 MG ENTERIC TABLET PO (09:12)
[2021-10-18] MEDS: ROSUVASTATIN 5 MG TABLET PO (09:12)
[2021-10-18] MEDS: carvediloL 25 MG TABLET PO ×2 (09:12→21:16)
[2021-10-18] MEDS: buPROPion HCL XL (24 HR) 150 MG TABCR 300 MG PO (09:15)
[2021-10-18] MEDS: ESCITALOPRAM OXALATE 10 MG TABLET PO (09:16)
[2021-10-18] MEDS: HEPARIN SODIUM 5,000 UNITS/ML VIAL 5000 UNITS SUB-Q ×2 (09:18→21:14)
[2021-10-18] MEDS: FUROSEMIDE INJ 40 MG/4 ML VIAL IV PUSH ×2 (09:19→18:26)
[2021-10-18] MEDS: UMECLIDINIUM BROMIDE 62.5 MCG ELLIPTA 1 PUFF INHALATION (09:28)
[2021-10-18 11:54] LABS: Glucose Point of Care 139 mg/dl (65-105)
--- NOTE | 2021-10-18 12:13 | PM.IMPN ---
Progress Note: A&P Assessment and Plan (1) Acute on chronic systolic (congestive) heart failure: Code(s): I50.23 - Acute on chronic systolic (congestive) heart failure Status: Acute Assessment and Plan: Start on Lasix IV 40 b.i.d.. Strict intake/output measurements. Daily standing weights. Continue ivabradine, losartan, isosorbide, aspirin, carvedilol, Crestor (2) Depression: Code(s): F32.A - Depression, unspecified Status: Acute Assessment and Plan: Continue Seroquel (3) Type 2 diabetes mellitus with hyperglycemia, with long-term current use of insulin: Code(s): E11.65 - Type 2 diabetes mellitus with hyperglycemia; Z79.4 - buttermaker continuous churn (current) use of insulin Status: Acute Assessment and Plan: Patient's typical regimen Levemir 10 units at night, NovoLog 20 units in the morning and 5 units in the evening. Will give patient 1 time dose of 5 units Lantus now and continue 8 units in the evening. NovoLog 16 units in the morning and 5 units in the evening with medium dose sliding scale. Check A1c (4) JESSICA (obstructive sleep apnea): Code(s): G47.33 - Obstructive sleep apnea (adult) (pediatric) Status: Acute Assessment and Plan: Will check if patient obtained PSG (5) Chronic kidney disease, stage III (moderate): Code(s): N18.30 - Chronic kidney disease, stage 3 unspecified Status: Acute Assessment and Plan: Stable, continue to monitor. Continue calcitriol (6) Infestation by bed bug: Code(s): B88.8 - Other specified infestations Status: Acute Assessment and Plan: Patient noted to have bedbugs upon cleaning patient. Contact isolation if appropriate Additional Plan 10/18/2021 Patient is clinically feeling much better. Plan is to continue diuresis. Monitor creatinine. Repeat chest x-ray. Subjective Date/time seen: 10/18/21 12:13 Patient was seen during the morning rounds today. Decreased shortness breath. No chest pain. No abdominal pain, no vomiting, no nausea.Mood stable. Review of Systems Review of Systems: All systems reviewed & are unremarkable except as noted in HPI and below (the history and physical exam.) Exam Const: General: comfortable and no acute distress Other: obese HENMT: Mouth: Yes moist mucous membranes Eyes: General: appearance normal, both eyes and all related structures Pupils: Equal, round and reactive pupils present Neck: Neck: supple Other: large neck Resp: Effort & Inspection: normal respiratory effort Auscultation: diminished lung sounds Cardio: Rate: regular rate Rhythm: regular rhythm Other: no gallop or murmur GI: Inspection: distended Other: hypoactive BS, nontender Skin: General skin exam: normal color and no rashes or lesions noted Neuro: Cranial nerves: Yes Equal, round and reactive pupils present Speech: normal speech Motor exam (neuro): 5/5 motor strength present throughout Extrem: General: edema (LE, 2+) bilateral Psych: Mental Status: mental status grossly normal Affect: normal affect Objective Data Vital Signs Vital Signs: Vital Signs - 24 hr 10/17/21 19:22 10/17/21 19:32 10/17/21 19:30 Temperature 36.5 C Pulse Rate 64 66 Respiratory Rate 12 15 Blood Pressure 119/57 L Pulse Oximetry 97 99 94 Oxygen Delivery High Flow Nasal Cannula Nasal Cannula Oxygen Flow Rate 3 3 10/17/21 20:00 10/17/21 20:46 10/17/21 22:10 Temperature Pulse Rate 68 69 74 Respiratory Rate 19 13 16 Blood Pressure 126/84 104/71 154/65 H Pulse Oximetry 97 94 97 Oxygen Delivery Oxygen Flow Rate 10/17/21 23:00 10/17/21 23:53 10/17/21 23:57 Temperature 36.7 C Pulse Rate 61 68 Respiratory Rate 20 16 Blood Pressure 155/93 H 149/93 H Pulse Oximetry 90 99 99 Oxygen Delivery Nasal Cannula Oxygen Flow Rate 3 10/18/21 01:30 10/18/21 04:44 10/18/21 09:31 Temperature 36.7 C 36.7 C Pulse Rate 68 56 L Respiratory Rate
[2021-10-18 17:39] LABS: Glucose Point of Care 146 mg/dl (65-105)
[2021-10-18] MEDS: INSULIN ASPART (*BKC) 100 UNITS/ML SUB-Q (18:20)
[2021-10-18] MEDS: INSULIN GLARGINE (*BKC) 100 UNITS/ML 8 UNITS SUB-Q (21:15)
[2021-10-18] MEDS: QUEtiapine FUMARATE 100 MG TABLET 200 MG PO (21:17)
[2021-10-18 22:14] LABS: Glucose Point of Care 204 mg/dl (65-105)
[2021-10-18] MEDS: ALBUTEROL SULFATE (*SP) AEROSOL 1 PUFF 2 PUFF INHALATION (22:45)
[2021-10-19] VITALS (10 sets, daily range): BP systolic 109–168; BP diastolic 69–99; PULSE 65–82; RESP 12–18; TEMP 36.3–36.9; O2SAT 92–100
[2021-10-19 06:40] LABS: Anion Gap 8 mmol/L (8-16); Blood Urea Nitrogen 25 mg/dL (7-17); Calcium 8.8 mg/dL (8.4-10.2); Carbon Dioxide 36 mmol/L (22-30); Chloride 99 mmol/L (98-107); Estimated CRCL calculation 46 ml/min; Estimated Glomerular Filt Rate 36; Glucose 132 mg/dL (65-110); Potassium 3.7 mmol/L (3.4-5.0); Sodium 143 mmol/L (137-145)
[2021-10-19 07:54] LABS: Glucose Point of Care 136 mg/dl (65-105)
[2021-10-19] MEDS: LOSARTAN POTASSIUM 50 MG TABLET PO (08:25)
[2021-10-19] MEDS: FERROUS SULFATE 324 MG TABLET PO (08:25)
[2021-10-19] MEDS: buPROPion HCL XL (24 HR) 150 MG TABCR 300 MG PO (08:25)
[2021-10-19] MEDS: calcitrioL 0.25 MCG CAPSULE PO (08:26)
[2021-10-19] MEDS: ISOSORBIDE MONONITRATE 30 MG TAB.ER.24H PO (08:26)
[2021-10-19] MEDS: allopurinoL 100 MG TABLET BY MOUTH (08:26)
[2021-10-19] MEDS: ESCITALOPRAM OXALATE 10 MG TABLET PO (08:27)
[2021-10-19] MEDS: ROSUVASTATIN 5 MG TABLET PO (08:27)
[2021-10-19] MEDS: ASPIRIN 81 MG ENTERIC TABLET PO (08:27)
[2021-10-19] MEDS: carvediloL 25 MG TABLET PO ×2 (08:27→20:29)
[2021-10-19] MEDS: HEPARIN SODIUM 5,000 UNITS/ML VIAL 5000 UNITS SUB-Q ×2 (08:28→20:31)
[2021-10-19] MEDS: FUROSEMIDE INJ 40 MG/4 ML VIAL IV PUSH ×2 (08:28→17:40)
[2021-10-19] MEDS: INSULIN ASPART (*BKC) 100 UNITS/ML 16 UNITS SUB-Q (08:36)
[2021-10-19] MEDS: UMECLIDINIUM BROMIDE 62.5 MCG ELLIPTA 1 PUFF INHALATION (08:52)
[2021-10-19] MEDS: ALBUTEROL SULFATE (*SP) AEROSOL 1 PUFF 2 PUFF INHALATION (08:52)
--- NOTE | 2021-10-19 09:53 | PM.IMPN ---
Progress Note: A&P Assessment and Plan (1) Acute on chronic systolic (congestive) heart failure: Code(s): I50.23 - Acute on chronic systolic (congestive) heart failure Status: Acute Assessment and Plan: Start on Lasix IV 40 b.i.d.. Strict intake/output measurements. Daily standing weights. Continue ivabradine, losartan, isosorbide, aspirin, carvedilol, Crestor (2) Depression: Code(s): F32.A - Depression, unspecified Status: Acute Assessment and Plan: Continue Seroquel (3) Type 2 diabetes mellitus with hyperglycemia, with long-term current use of insulin: Code(s): E11.65 - Type 2 diabetes mellitus with hyperglycemia; Z79.4 - FDC (current) use of insulin Status: Acute Assessment and Plan: Patient's typical regimen Levemir 10 units at night, NovoLog 20 units in the morning and 5 units in the evening. Will give patient 1 time dose of 5 units Lantus now and continue 8 units in the evening. NovoLog 16 units in the morning and 5 units in the evening with medium dose sliding scale. Check A1c (4) JESSICA (obstructive sleep apnea): Code(s): G47.33 - Obstructive sleep apnea (adult) (pediatric) Status: Acute Assessment and Plan: Will check if patient obtained PSG (5) Chronic kidney disease, stage III (moderate): Code(s): N18.30 - Chronic kidney disease, stage 3 unspecified Status: Acute Assessment and Plan: Stable, continue to monitor. Continue calcitriol (6) Infestation by bed bug: Code(s): B88.8 - Other specified infestations Status: Acute Assessment and Plan: Patient noted to have bedbugs upon cleaning patient. Contact isolation if appropriate Additional Plan 10/19/2021 Patient is clinically feeling much better. Plan is to continue diuresis. Monitor creatinine. Repeat chest x-ray. Subjective Date/time seen: 10/19/21 09:53 Patient was seen during the morning rounds today. Patient shortness of breath is better. No chest pain. No abdominal pain. No nausea. No vomiting. Mood stable. Review of Systems Review of Systems: All systems reviewed & are unremarkable except as noted in HPI and below (the history and physical exam.) Exam Const: General: comfortable and no acute distress Other: obese HENMT: Mouth: Yes moist mucous membranes Eyes: General: appearance normal, both eyes and all related structures Pupils: Equal, round and reactive pupils present Neck: Neck: supple Other: large neck Resp: Effort & Inspection: normal respiratory effort Auscultation: diminished lung sounds Cardio: Rate: regular rate Rhythm: regular rhythm Other: no gallop or murmur GI: Inspection: distended Other: hypoactive BS, nontender Skin: General skin exam: normal color and no rashes or lesions noted Neuro: Cranial nerves: Yes Equal, round and reactive pupils present Speech: normal speech Motor exam (neuro): 5/5 motor strength present throughout Extrem: General: edema (LE, 2+) bilateral Psych: Mental Status: mental status grossly normal Affect: normal affect Objective Data Vital Signs Vital Signs: Vital Signs - 24 hr 10/18/21 10:12 10/18/21 12:00 10/18/21 16:00 Temperature 35.7 C L 35.8 C L 35.7 C L Pulse Rate 83 64 78 Respiratory Rate 16 16 15 Blood Pressure 161/73 H 117/60 145/64 H Pulse Oximetry 94 98 98 Oxygen Delivery Oxygen Flow Rate 10/18/21 19:27 10/18/21 21:16 10/18/21 20:00 Temperature 36.6 C Pulse Rate 78 70 70 Respiratory Rate 16 16 Blood Pressure 139/68 Pulse Oximetry 93 93 Oxygen Delivery Nasal Cannula Oxygen Flow Rate 2 10/19/21 00:00 10/19/21 04:00 10/19/21 08:55 Temperature 36.6 C 36.6 C Pulse Rate 65 65 Respiratory Rate 12 16 Blood Pressure 168/81 H 142/75 H Pulse Oximetry 98 97 92 Oxygen Delivery Non-Rebreather Mask Oxygen Flow Rate 2.5 Intake/Output Intake/Output: Intake & Output 10/16/21 10/17/21 10/18/2110/19
[2021-10-19 11:50] LABS: Glucose Point of Care 183 mg/dl (65-105)
[2021-10-19 17:28] LABS: Glucose Point of Care 178 mg/dl (65-105)
[2021-10-19] MEDS: INSULIN ASPART (*BKC) 100 UNITS/ML SUB-Q (17:32)
[2021-10-19] MEDS: QUEtiapine FUMARATE 100 MG TABLET 200 MG PO (20:30)
[2021-10-19] MEDS: INSULIN GLARGINE (*BKC) 100 UNITS/ML 8 UNITS SUB-Q (20:31)
[2021-10-19 20:32] LABS: Glucose Point of Care 171 mg/dl (65-105)
[2021-10-19] MEDS: ACETAMINOPHEN 325 MG TABLET 650 MG PO (20:55)
[2021-10-20] VITALS (11 sets, daily range): BP systolic 114–147; BP diastolic 55–83; PULSE 47–72; RESP 12–20; TEMP 35.7–36.7; O2SAT 94–100
[2021-10-20 06:10] LABS: Blood Urea Nitrogen 28 mg/dL (7-17); Calcium 8.8 mg/dL (8.4-10.2); Carbon Dioxide > 40 mmol/L (22-30); Chloride 98 mmol/L (98-107); Estimated CRCL calculation 44 ml/min; Estimated Glomerular Filt Rate 34; Glucose 126 mg/dL (65-110); Potassium 3.6 mmol/L (3.4-5.0); Sodium 145 mmol/L (137-145)
[2021-10-20 07:45] LABS: Glucose Point of Care 122 mg/dl (65-105)
[2021-10-20] MEDS: calcitrioL 0.25 MCG CAPSULE PO (08:21)
[2021-10-20] MEDS: carvediloL 25 MG TABLET PO ×2 (08:21→20:14)
[2021-10-20] MEDS: ROSUVASTATIN 5 MG TABLET PO (08:21)
[2021-10-20] MEDS: FERROUS SULFATE 324 MG TABLET PO (08:23)
[2021-10-20] MEDS: ASPIRIN 81 MG ENTERIC TABLET PO (08:23)
[2021-10-20] MEDS: ISOSORBIDE MONONITRATE 30 MG TAB.ER.24H PO (08:23)
[2021-10-20] MEDS: LOSARTAN POTASSIUM 50 MG TABLET PO (08:23)
[2021-10-20] MEDS: buPROPion HCL XL (24 HR) 150 MG TABCR 300 MG PO (08:23)
[2021-10-20] MEDS: HEPARIN SODIUM 5,000 UNITS/ML VIAL 5000 UNITS SUB-Q ×2 (08:23→20:14)
[2021-10-20] MEDS: allopurinoL 100 MG TABLET BY MOUTH (08:23)
[2021-10-20] MEDS: FUROSEMIDE INJ 40 MG/4 ML VIAL IV PUSH (08:23)
[2021-10-20] MEDS: ESCITALOPRAM OXALATE 10 MG TABLET PO (08:23)
[2021-10-20] MEDS: INSULIN ASPART (*BKC) 100 UNITS/ML 16 UNITS SUB-Q (08:41)
[2021-10-20] MEDS: UMECLIDINIUM BROMIDE 62.5 MCG ELLIPTA 1 PUFF INHALATION (08:48)
--- NOTE | 2021-10-20 11:17 | PM.IMPN ---
Progress Note: A&P Assessment and Plan (1) Acute on chronic systolic (congestive) heart failure: Code(s): I50.23 - Acute on chronic systolic (congestive) heart failure Status: Acute Assessment and Plan: Patient presents with shortness of breath. BNP was 7300. Chest x-ray shows cardiomegaly with pulmonary vascular congestion. She takes Lasix 40 mg b.i.d. at home. She was started on Lasix IV 40 mg b.i.d. here. Cumulative I/O -1.5 L. still with evidence of fluid overload. Will continue medical management. Will advance IV Lasix. Metolazone x1. Daily weights (2) Type 2 diabetes mellitus with hyperglycemia, with long-term current use of insulin: Code(s): E11.65 - Type 2 diabetes mellitus with hyperglycemia; Z79.4 - supervisor intermediates (current) use of insulin Status: Acute Assessment and Plan: A1c 6.4. Patient takes Levemir 10 units at night, NovoLog 20 units in the morning and 5 units in the evening. The patient's blood glucose was reviewed on 10/20 Glucose remains well controlled. She is currently on Lantus 8U at night with Novolog 16UQAM and 5U QPM. Continue AccuCheks covering with sliding scale. Hypoglycemia protocol available as needed. Continue current medications. (3) JESSICA (obstructive sleep apnea): Code(s): G47.33 - Obstructive sleep apnea (adult) (pediatric) Status: Acute Assessment and Plan: Patient used noninvasive ventilation last admission. Will continue here. (4) Chronic kidney disease, stage III (moderate): Code(s): N18.30 - Chronic kidney disease, stage 3 unspecified Status: Acute Assessment and Plan: Stable. Patient tolerating the diuretic therapy. Serum bicarb higher today. Follow closely (5) Infestation by bed bug: Code(s): B88.8 - Other specified infestations Status: Acute Assessment and Plan: Patient presumably noted to have bedbugs upon cleaning patient. No mention of this in the nurses notes under hygiene or integumentary. Follow (6) Depression: Code(s): F32.A - Depression, unspecified Status: Acute Assessment and Plan: Mood stable. Continue WB, Lexapro and Seroquel. Subjective Date/time seen: 10/20/21 11:17 Interval history: 51yo female with DM, JESSICA, and CHF here for CHF exacerbation. Assuming care. Chart reviewed. Shortness of breath is better. She still has dyspnea on exertion. She is requesting discharge. She chronically wears 2 L of oxygen home. She still has leg edema which is more than her baseline. Exam Narrative: AF 98.0 117/56 72 16 97% 2L Gen - NARD lying semi recumbent in bed Chest - few bibasilar inspiratory crackles otherwise clear distant breath sounds. Normal respiratory rate. CV - RRR S1/S2 Abd - Soft. Obese. Abdominal wall edema noted Ext - 2+ pitting pedal edema. Psych - Nml mood and affect Skin - Warm and dry Objective Data Vital Signs Vital Signs: Vital Signs - 24 hr 10/19/21 14:00 10/19/21 18:00 10/19/21 20:29 Temperature 97.3 F L 97.3 F L Pulse Rate 73 76 76 Respiratory Rate 18 15 Blood Pressure 109/69 132/82 Pulse Oximetry 100 98 Oxygen Delivery Oxygen Flow Rate 10/19/21 20:52 10/19/21 20:00 10/20/21 00:19 Temperature 98.4 F 98 F Pulse Rate 66 63 Respiratory Rate 12 12 Blood Pressure 151/99 H 141/83 H Pulse Oximetry 97 97 98 Oxygen Delivery Nasal Cannula Oxygen Flow Rate 3 10/20/21 06:00 10/20/21 08:21 10/20/21 08:48 Temperature 97.8 F Pulse Rate 72 59 L 47 L Respiratory Rate 12 12 Blood Pressure 147/82 H Pulse Oximetry 94 Oxygen Delivery Oxygen Flow Rate 10/20/21 10:00 Temperature 98.0 F Pulse Rate 72 Respiratory Rate 16 Blood Pressure 117/56 L Pulse Oximetry 97 Oxygen Delivery Oxygen Flow Rate Intake/Output Intake/Output: Intake & Output 10/17/21 10/18/21 10/19/21 10/20/21 23:59 23:59 23:59 23:59 Intake Total 1200 920 540 Output Total 2500 1700 Ba
[2021-10-20 12:21] LABS: Glucose Point of Care 161 mg/dl (65-105)
[2021-10-20] MEDS: metOLazone 5 MG TABLET PO (12:53)
[2021-10-20 17:27] LABS: Glucose Point of Care 140 mg/dl (65-105)
[2021-10-20] MEDS: INSULIN ASPART (*BKC) 100 UNITS/ML SUB-Q (17:31)
[2021-10-20] MEDS: FUROSEMIDE INJ 100 MG/10 ML VIAL 60 MG IV PUSH (17:34)
[2021-10-20] MEDS: QUEtiapine FUMARATE 100 MG TABLET 200 MG PO (20:15)
[2021-10-20] MEDS: INSULIN GLARGINE (*BKC) 100 UNITS/ML 8 UNITS SUB-Q (20:18)
[2021-10-20 20:48] LABS: Glucose Point of Care 160 mg/dl (65-105)
[2021-10-21] VITALS (7 sets, daily range): BP systolic 130–158; BP diastolic 42–93; PULSE 73–77; RESP 20; TEMP 35.7–36.6; O2SAT 91–98
[2021-10-21 06:05] LABS: Blood Urea Nitrogen 32 mg/dL (7-17); Calcium 9.2 mg/dL (8.4-10.2); Carbon Dioxide > 40 mmol/L (22-30); Chloride 95 mmol/L (98-107); Estimated CRCL calculation 40 ml/min; Estimated Glomerular Filt Rate 30; Glucose 134 mg/dL (65-110); Potassium 3.5 mmol/L (3.4-5.0); Sodium 144 mmol/L (137-145)
[2021-10-21 07:40] LABS: Glucose Point of Care 137 mg/dl (65-105)
[2021-10-21] MEDS: FERROUS SULFATE 324 MG TABLET PO (08:23)
[2021-10-21] MEDS: allopurinoL 100 MG TABLET BY MOUTH (08:23)
[2021-10-21] MEDS: INSULIN ASPART (*BKC) 100 UNITS/ML 16 UNITS SUB-Q (08:24)
[2021-10-21] MEDS: ASPIRIN 81 MG ENTERIC TABLET PO (08:25)
[2021-10-21] MEDS: LOSARTAN POTASSIUM 50 MG TABLET PO (08:25)
[2021-10-21] MEDS: ISOSORBIDE MONONITRATE 30 MG TAB.ER.24H PO (08:25)
[2021-10-21] MEDS: carvediloL 25 MG TABLET PO (08:25)
[2021-10-21] MEDS: ROSUVASTATIN 5 MG TABLET PO (08:25)
[2021-10-21] MEDS: HEPARIN SODIUM 5,000 UNITS/ML VIAL 5000 UNITS SUB-Q (08:26)
[2021-10-21] MEDS: calcitrioL 0.25 MCG CAPSULE PO (08:26)
[2021-10-21] MEDS: ESCITALOPRAM OXALATE 10 MG TABLET PO (08:26)
[2021-10-21] MEDS: buPROPion HCL XL (24 HR) 150 MG TABCR 300 MG PO (08:26)
[2021-10-21] MEDS: FUROSEMIDE INJ 100 MG/10 ML VIAL 60 MG IV PUSH (08:27)
[2021-10-21] MEDS: UMECLIDINIUM BROMIDE 62.5 MCG ELLIPTA 1 PUFF INHALATION (09:03)
[2021-10-21] MEDS: ALBUTEROL SULFATE (*SP) AEROSOL 1 PUFF 2 PUFF INHALATION (09:05)
[2021-10-21 11:16] LABS: Glucose Point of Care 156 mg/dl (65-105)
--- NOTE | 2021-10-21 16:16 | PM.DS ---
DS: Admitting Diagnosis Discharge Date 10/21/21 Admitting Diagnosis Shortness of breath and increasing edema DS: Discharge Diagnosis Discharge Diagnosis (1) Acute on chronic systolic (congestive) heart failure: Code(s): I50.23 - Acute on chronic systolic (congestive) heart failure Status: Acute (2) Type 2 diabetes mellitus with hyperglycemia, with long-term current use of insulin: Code(s): E11.65 - Type 2 diabetes mellitus with hyperglycemia; Z79.4 - head butler (current) use of insulin Status: Acute (3) JESSICA (obstructive sleep apnea): Code(s): G47.33 - Obstructive sleep apnea (adult) (pediatric) Status: Acute (4) Chronic kidney disease, stage III (moderate): Code(s): N18.30 - Chronic kidney disease, stage 3 unspecified Status: Acute (5) Infestation by bed bug: Code(s): B88.8 - Other specified infestations Status: Acute (6) Depression: Code(s): F32.A - Depression, unspecified Status: Acute DS: Summary Hospital Course Reason for hospitalization: 51yo female with DM, JESSICA, and CHF here for CHF exacerbation. Please see H&P for details Hospital Course: Patient presents with shortness of breath.? BNP was 7300.? Chest x-ray shows cardiomegaly with pulmonary vascular congestion.? She takes Lasix 40 mg b.i.d. at home.? She was started on Lasix IV 40 mg b.i.d. here.? Cumulative I/O -1.5 L. She still with evidence of fluid overload Lasix advanced with improved UOP. Cumulative I/O -4.3L. A1c 6.4. Glucose monitored with AccuCheks covering with sliding scale.? Hypoglycemia protocol was available as needed.? She has known JESSICA but does not have a NIV unit yet; she plans to talk with her doctor about this. She has chronic respiratory failure on 2 L and remained on 2L during her hospital stay. She had clinical improvement. Cr did increase to 2.1. She was insistent on discharge but was convinced to stay one more night for further diuresis. She overall did well and was able to be discharged on 10/21/21. Status at Discharge Cognitive/behavioral status at discharge: Stable Time Spent with Patient Time attestation: Total time spent providing and/or coordinating discharge services: 37 minutes Time spent: Greater than 30 minutes Exam Narrative: AF 98.0 136/52 77 20 97% 2L Gen - NARD sittiing at the side of the bed with right leg elevated and left leg down. Chest - mnor bibasilar inspiratory crackles o/w clear. Normal respiratory rate. CV - RRR S1/S2 Abd - Soft. Obese. Abdominal wall edema noted Ext - 1-2+ pitting pedal edema but softer (left leg larger due to gravity). Psych - Nml mood and affect Skin - Warm and dry DS: Data Data Completed and Pending Labs on day of discharge: Labs from last 24 hours 10/21/21 10/21/21 10/21/21 11:11 07:37 05:31 Sodium 144 Potassium 3.5 Chloride 95 L Carbon Dioxide > 40 H Anion Gap BUN 32 H Creatinine 2.10 H Estim Creat Clear Calc 40 Estimated GFR 30 L Glucose 134 H POC Capillary Glucose 156 H 137 H Calcium 9.2 10/20/21 10/20/21 20:17 17:23 Sodium Potassium Chloride Carbon Dioxide Anion Gap BUN Creatinine Estim Creat Clear Calc Estimated GFR Glucose POC Capillary Glucose 160 H 140 H Calcium Discharge Plan Discharge Attending physician on discharge: Jose Francisco Berger Discharging Clinician: Jose Francisco Berger Anticipated Discharge Date/Time: 10/21/21 16:23 Patient Disposition: Home, Self-Care Activity: as tolerated Diet: other - see discharge instructions Discharge Instructions: Maintain 1.2L fluid restriction and 2 gram sodium (low sodium) diabetic diet Please check glucose before meals and before bed. Record and bring into your doctor for review. Check blood pressure 1 to 2 times a day. Record and bring into your doctor for review. Call your doctor if your blood pressure is greater than 180/110. Take
[2021-10-21 16:29] LABS: Glucose Point of Care 184 mg/dl (65-105)
--- NOTE | 2021-10-21 16:55 | PCCCNOTE ---
Floor nurse call and requested cab voucher. [facility] pt has no other way to get home
[2021-10-21] MEDS: INSULIN ASPART (*BKC) 100 UNITS/ML SUB-Q (17:59)
== END 2021-10-21 18:19 | disposition home or self-care (01) | DRG 291 ==
LOC: ANHED 21:59 → ANH2MED 10-18 07:34
PROVIDERS: Admitting Provider Internal Medicine; Emergency Provider Emergency Medicine; PCP Internal Medicine Infectious Disease; Visit Provider Internal Medicine
DX: I13.0 Hypertensive heart and chronic kidney disease with heart failure and stage 1 through stage 4 chronic kidney disease, or unspecified chronic kidney disease (principal); I50.23 Acute on chronic systolic (congestive) heart failure; J96.10 Chronic respiratory failure, unspecified whether with hypoxia or hypercapnia; Z68.42 Body mass index [BMI] 45.0-49.9, adult; N18.30 Chronic kidney disease, stage 3 unspecified; E11.22 Type 2 diabetes mellitus with diabetic chronic kidney disease; E11.65 Type 2 diabetes mellitus with hyperglycemia; J44.9 Chronic obstructive pulmonary disease, unspecified; G47.33 Obstructive sleep apnea (adult) (pediatric); E66.01 Morbid (severe) obesity due to excess calories; B88.8 Other specified infestations; F32.A Depression, unspecified; Z20.822 Contact with and (suspected) exposure to COVID-19; Z79.4 Long term (current) use of insulin; Z99.81 Dependence on supplemental oxygen; Z95.810 Presence of automatic (implantable) cardiac defibrillator
CPT/HCPCS: 36415; 71046; 80048; 80053; 82948; 83036; 83880; 84484; 85025; 85055; 85610; 85730; 93005; 94640; 96374; 96376; 99285; A9270; C9803; G0378; J1644; J1815; J1940; U0003; U0005

== ENCOUNTER 2021-10-26 14:44 | Inpatient (IN) | payer MEDICARE, MEDICAID, SELFPAY ==
[2021-10-26] VITALS (13 sets, daily range): BP systolic 127–166; BP diastolic 89–114; PULSE 60–81; RESP 16–20; TEMP 36.3–36.4; O2SAT 93–99; BMI 49.1
--- NOTE | ~2021-10-26 | US_ITS ---
EXAMINATION:US venous doppler LE BI INDICATION:Leg edema TECHNIQUE: Multiple grayscale, color flow and Doppler images of the right and left lower extremity de ep venous systems were obtained and reviewed. COMPARISON:No prior studies for comparison. FINDINGS: The common femoral, superficial femoral and popliteal veins demonstrate normal respiratory variation, augmentation and compressibility. Color flow is also seen within the posterior tibial, pe roneal, greater saphenous and profunda veins. IMPRESSION: 1: No lower extremity deep venous thrombosis. Reviewed, dictated and finalized at location B.
--- NOTE | ~2021-10-26 | XR_ITS ---
XR chest 1V portable 10/26/2021 15:16 Indication: Shortness of breath Procedure: AP portable chest Comparison: Comparison to multiple prior studies sequentially, with oldest reviewed study dated 11/2017. Findings: Cardiomegaly with interstitial edema. Pacemaker leads are stable. No pneumothorax or pleura l effusion. Impression: 1: Cardiomegaly with interstitial edema. Reviewed, dictated and finalized at location A. Impression: 1: Cardiomegaly with interstitial edema.
--- NOTE | ~2021-10-26 | NM_ITS ---
EXAMINATION: NM pulmonary perfusion DATE: 10/27/2021 13:06 INDICATION: Shortness of breath. TECHNIQUE: 4.98 mCi Tc-99m MAA was administered intravenously for perfusion images. Scintigraphic im ages of the chest were obtained. COMPARISON: Chest single view 10/26/2021 FINDINGS: Perfusion images show small defects in the lower lobes. There are moderate sized defects in apicopost erior segment left upper lobe and superior segment left lower lobe. IMPRESSION: 1. Nondiagnostic (intermediate probability for pulmonary embolism). Reviewed, dictated and finalized at location A.
--- NOTE | 2021-10-26 14:54 | ECG_ITS ---
Measurements Intervals [place] Rate: 75 P: 49 OK: 194 QRS: -37 QRSD: 158 T: 104 QT: 443 QTc: 495 Interpretive Statements SINUS RHYTHM WITH OCCASIONAL VENTRICULAR PREMATURE COMPLEXES LEFT AXIS DEVIATION [QRS AXIS < -30] LEFT BUNDLE BRANCH BLOCK [120+ ms QRS DURATION, 80+ ms Q/S IN V1/V2, 85+ ms R IN I/aVL/V5/V6] COMPARED TO ECG 10/17/2021 19:34:31 NO SIGNIFICANT CHANGES Electronically Signed On 10-27-2021 13:50:49 CDT by Larry Dougherty M.D.
--- NOTE | 2021-10-26 14:59 | ED.SOB ---
HPI - SOB/Dyspnea General Chief Complaint: Shortness of Breath/Dyspnea Stated Complaint: Shortness of breath Time Seen by Provider: 10/26/21 14:58 Source: patient and EMS Mode of arrival: EMS Limitations: no limitations History of Present Illness HPI Narrative: 51 years old -[place] female came to the ED by ambulance from home complaining of weakness, nausea and vomiting twice last night and once this morning. Plus chronic's shortness of breath which is not worse than before. Patient on chronic oxygen by nasal cannula at 2 L. History of CHF, diabetes, obstructive sleep apnea, and CKD, Related Data Home Medications Medication Instructions Recorded Confirmed allopurinol 100 mg tablet 100 mg DAILY 07/15/21 10/18/21 bupropion HCl 300 mg 24 hr tablet, 300 mg PO DAILY 07/15/21 10/18/21 extended release calcitriol 0.25 mcg capsule 0.25 mcg PO DAILY 07/15/21 10/18/21 carvedilol 25 mg tablet 25 mg PO BID 07/15/21 10/18/21 empagliflozin 10 mg tablet 10 mg PO DAILY 07/15/21 10/18/21 (Jardiance) ergocalciferol (vitamin D2) 1,250 50,000 unit PO WEEKLY 07/15/21 10/18/21 mcg (50,000 unit) capsule escitalopram oxalate 20 mg tablet 10 mg PO DAILY 07/15/21 10/18/21 ferrous sulfate 325 mg (65 mg 325 mg PO DAILY 07/15/21 10/18/21 iron) tablet (FeroSul) furosemide 40 mg tablet 40 mg PO BID 07/15/21 10/18/21 isosorbide mononitrate 30 mg 30 mg PO DAILY 07/15/21 10/18/21 tablet,extended release 24 hr ivabradine 5 mg tablet (Corlanor) 5 mg PO BID 07/15/21 10/18/21 losartan 50 mg tablet 50 mg PO DAILY 07/15/21 10/18/21 quetiapine 400 mg tablet 200 mg PO HS 07/15/21 10/18/21 rosuvastatin 5 mg tablet 5 mg PO DAILY 07/15/21 10/18/21 albuterol sulfate 2 puff BYMOUTH DAILY PRN Shortness 07/16/21 10/18/21 Of Breath umeclidinium 62.5 mcg/actuation 2 inh inhalation DAILY 10/18/21 10/18/21 blister powder for inhalation (Incruse Ellipta) Allergies Allergy/AdvReac Type Severity Reaction Status Date / Time No Known Allergies Allergy Unverified 10/26/21 14:55 Review of Systems Review of Systems: All systems reviewed & are unremarkable except as noted in HPI and below PMFSH Past Medical History Medical History (Updated 10/26/21 @ 17:03 by Bernabe Moe MD) Body mass index [BMI] 45.0-49.9, adult (04/04/18) Cardiac defibrillator in place Cardiac defibrillator in place Chronic kidney disease, stage III (moderate) Congestive heart failure, unspecified COPD (chronic obstructive pulmonary disease) Dependence on supplemental oxygen Essential hypertension JESSICA (obstructive sleep apnea) Pacemaker Type 2 diabetes mellitus with hyperglycemia, with long-term current use of insulin Surgical History Surgical History (Updated 10/26/21 @ 16:43 by Mima Gomez NP) H/O tubal ligation History of bilateral carpal tunnel release History of laparoscopic cholecystectomy Family History Family History Grandparent Diabetes mellitus Hypertension Sibling Diabetes mellitus Patient's brother is in good health Patient's sister is in good health Asthma Father Patient's father is Mother Patient's mother is Other Family history of malignant neoplasm Social History Social History (Updated 10/26/21 @ 16:45 by Mima Gomez NP) Social History: 2 biological many foster. single. Smoking status: Never smoker Second hand tobacco smoke exposure: Yes Alcohol intake: never Substance use: never Spiritual care concerns: No Exam Narrative: General appearance: Well-developed, well-nourished Skin: Normal color Head: Normocephalic, nontraumatic Eyes: Clear conjunctiva ENT: Oropharynx normal, ears normal, nose normal Neck: Supple, nontender Chest and respiratory: Diminution of air entry bilaterally, basal rales Heart: Regular rate/rhythm Abdomen: Soft, nontender, no organomegaly, quiet bowel sounds Vas
[2021-10-26 15:16] LABS: Basophils Percent Auto 0.3 % (0.2-1.2); Hematocrit 46.3 % (37.0-47.0); Immature Granulocyte Absolute 0.01 K/mm3 (0.00-0.031); Immature Granulocyte Percent A 0.2 % (0-0.5); Immature Platelet Fraction Pct 11.9 % (0.9-11.2); Lymphocytes Absolute Auto 0.92 K/mm3 (0.9-3.2); Mean Corpuscular HGB Conc 30.2 g/dl (32-36); Mean Corpuscular Hemoglobin 26.2 pg (26-34); Mean Corpuscular Volume 86.5 fl (80-100); Monocytes Absolute Auto 0.3 K/mm3 (0.1-0.6); Monocytes Percent Auto 4.9 % (2.6-8.5); Neutrophils Absolute Auto 5.3 K/mm3 (1.3-6.7); Neutrophils Percent Auto 80.6 % (45.5-73.1); Nucleated Red Blood Cells Absolute Auto 0.1 K/mm3 (0.0-0.012); Nucleated Red Blood Cells Perc 0.8 % (0.0-0.2); Platelet Count Result 197 k/mm3 (150-375); Red Blood Count 5.35 M/mm3 (4.2-5.4); Red Cell Distribution Width 20.5 % (11.5-14.5); White Blood Count 6.6 K/mm3 (4.5-10.0)
[2021-10-26 15:30] LABS: Alveolar/Arterial O2 Gradient 108.2 mmHg; Base Excess ABG 19.4 mEq/l (+/-2.0); Fractional Inspired Oxygen 34 %; Oxygen Content ABG 18.6 %vol (16.0-22.0); Oxygen Saturation ABG 91.4 % (95.0-100.0); Oxyhemoglobin 87.9 % THb (90.0-100.0); PO2 FiO2 Ratio Arterial Blood 1.74 %; Total Hemoglobin 15.1 g/dL (12.0-18.0)
[2021-10-26 15:32] LABS: Device NASAL CANNULA; Liters per Minute 3.5 LPM; Modified Allen's Test Pass; PCO2 ABG 64.6 mmHg (35.0-45.0); Site Drawn LEFT RADIAL
[2021-10-26 16:05] LABS: NT Pro B Type Natriuretic Pept 7260 pg/mL (5-100)
[2021-10-26 16:16] LABS: Alanine Aminotransferase 23 U/L (6-35); Albumin Level 4.1 g/dL (3.5-5.1); Alkaline Phosphatase 55 U/L (38-126); Aspartate Amino Transferase 35 U/L (14-36); Bilirubin,Total 1.2 mg/dL (0.2-1.3); Blood Urea Nitrogen 37 mg/dL (7-17); Calcium 10.8 mg/dL (8.4-10.2); Carbon Dioxide > 40 mmol/L (22-30); Chloride 85 mmol/L (98-107); Estimated CRCL calculation 37 ml/min; Estimated Glomerular Filt Rate 30; Glucose 129 mg/dL (65-110); Sodium 141 mmol/L (137-145)
[2021-10-26 16:20] LABS: INR 1.3; Prothrombin Time 15.3 Seconds (11.1-14.7)
[2021-10-26 16:21] LABS: Partial Thromboplastin Time 28.8 SECONDS (22.3-36.8)
[2021-10-26 16:34] LABS: SARS-CoV-2 RNA PCR Negative
--- NOTE | 2021-10-26 16:40 | PM.IMHP ---
H&P: HPI History of Present Illness Date/Time: 10/26/21 16:40 Chief Complaint: This is a 51-year-old female patient who came to the emergency room via ambulance anemia of weakness, nausea vomiting for the last 2 nights and once this morning. The patient typically wears oxygen at home 2 L per nasal cannula. She is currently up to 3.5 L. She has a history of congestive heart failure, diabetes and obstructive sleep apnea with chronic kidney disease. Chest x-ray was read as cardiomegaly with interstitial edema. Her potassium was noted to be 3.0. She was supplemented with 40 mEq of potassium and then she was given Lasix 40 mg IV push as well as aspirin and nitroglycerin. She was given subcu Lovenox. She denies any chest pain. Troponin was noted to be 0.050. EKG was read as sinus rhythm with occasional ventricular premature complexes. The patient is being admitted to observation status on the date of service of 10/26/2021. Review of Systems Review of Systems: See HPI All systems reviewed & are unremarkable except as noted in HPI and below Constitutional: Constitutional: Reports as per HPI and Reports no additional constitutional complaints Eyes: Eyes: Reports as per HPI and Reports no additional eye complaints ENT: Reports system reviewed and no additional complaints, except as documented and Reports Normal hearing present Cardiovascular: Cardiovascular: Reports no additional cardiovascular complaints Respiratory: Respiratory: Reports no additional respiratory complaints and Reports no additional respiratory complaints Gastrointestinal: Gastrointestinal: Reports as per HPI and Reports no additional gastrointestinal complaints Musculoskeletal: Musculoskeletal: Reports no additional musculoskeletal complaints Integumentary/Breasts: Skin/Breast: Reports system reviewed and no additional complaints, except as docu and Reports as per HPI Neurologic: Reports system reviewed and no additional complaints, except as documented, Reports as per HPI and Reports Normal hearing present Psychiatric: Psychiatric: Reports no additional psychiatric complaints and Reports as per HPI Endocrine: Endocrine: Reports no additional endocrine complaints Hematologic/Lymphatic: Hematologic/Lymphatic: Reports no additional hematologic/lymphatic complaints Allergic/Immunologic: Allergic/Immunologic: Reports no additional allergic/immunologic complaints [facility] Past Medical History Medical History Body mass index [BMI] 45.0-49.9, adult (04/04/18) Cardiac defibrillator in place Cardiac defibrillator in place Chronic kidney disease, stage III (moderate) Congestive heart failure, unspecified COPD (chronic obstructive pulmonary disease) Dependence on supplemental oxygen Essential hypertension JESSICA (obstructive sleep apnea) Pacemaker Type 2 diabetes mellitus with hyperglycemia, with long-term current use of insulin Surgical History Surgical History (Updated 10/26/21 @ 16:43 by Mima Gomez NP) H/O tubal ligation History of bilateral carpal tunnel release History of laparoscopic cholecystectomy Family History Family History Grandparent Diabetes mellitus Hypertension Sibling Diabetes mellitus Patient's brother is in good health Patient's sister is in good health Asthma Father Patient's father is Mother Patient's mother is Other Family history of malignant neoplasm Social History Social History (Updated 10/26/21 @ 18:26 by Mima Gomez NP) Social History: The patient is single and has 2 biological and many foster children that she has raised. She is a lifelong nonsmoker. She denies using any alcohol marijuana. 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 Code status full code Smoking status: Never smoker Alcohol intake: never Substance use
[2021-10-26] MEDS: FUROSEMIDE INJ 40 MG/4 ML VIAL IV PUSH (16:48)
[2021-10-26] MEDS: ASPIRIN 325 MG TABLET PO (16:48)
[2021-10-26] MEDS: NITROGLYCERIN OINTMENT 1 INCH DOSE TRANSDERM ×2 (16:55→23:14)
--- NOTE | 2021-10-26 17:32 | ADMGEN ---
This patient, Bette Casper, was admitted to IMU Room 201-01. Patient/family oriented to hospital policies and general routines including ID bracelet, bed and alarms, visiting hours, pain management, procedures, bathroom and other care routines, personal items, smoking policy, room service/diet, and visiting hours. Information on how to activate the Rapid Response Team has been discussed. Patient/Family are encouraged to report perceived risks to care and to ask questions if they do not understand what they are told or what they should do.
[2021-10-26] MEDS: POTASSIUM CHLORIDE 20 MEQ TABLET 40 MEQ PO (17:52)
[2021-10-26] MEDS: POTASSIUM CHLORIDE INJ 40 MEQ in SODIUM CHLORIDE 0.9% IV 500 ML 130 MEQ IVPB (17:52)
[2021-10-26 18:53] LABS: Troponin I 0.065 ng/mL (0.000-0.034)
[2021-10-26] MEDS: ENOXAPARIN 100 MG/ML SYRINGE SUB-Q (18:58)
[2021-10-26] MEDS: ENOXAPARIN 30 MG/0.3 ML SYRINGE SUB-Q (18:58)
[2021-10-26] MEDS: POTASSIUM BICARBONATE 25 MEQ TABEF PO (18:58)
[2021-10-26] MEDS: QUEtiapine FUMARATE 100 MG TABLET 200 MG PO (20:30)
[2021-10-26] MEDS: INSULIN DETEMIR 100 UNITS/ML 8 UNITS SUB-Q (20:31)
[2021-10-26] MEDS: carvediloL 25 MG TABLET PO (20:31)
[2021-10-26 20:34] LABS: Glucose Point of Care 211 mg/dl (65-105)
[2021-10-26] MEDS: HYDROcodone/acetaminophen (*CRX) 7.5-325 MG TABLET 1 TAB PO (21:02)
[2021-10-26 22:02] LABS: Troponin I 0.086 ng/mL (0.000-0.034)
[2021-10-26 23:33] LABS: Blood Urea Nitrogen 36 mg/dL (7-17); Calcium 10.1 mg/dL (8.4-10.2); Carbon Dioxide > 40 mmol/L (22-30); Chloride 85 mmol/L (98-107); Estimated CRCL calculation 39 ml/min; Estimated Glomerular Filt Rate 32; Glucose 176 mg/dL (65-110); Potassium 3.8 mmol/L (3.4-5.0); Sodium 138 mmol/L (137-145)
[2021-10-27] VITALS (21 sets, daily range): BP systolic 107–154; BP diastolic 53–95; PULSE 47–72; RESP 18–20; TEMP 36.2–36.6; O2SAT 92–100
[2021-10-27 04:55] LABS: Basophils Percent Auto 0.5 % (0.2-1.2); Eosinophils Percent Auto 0.6 % (0-4.4); Hematocrit 41.7 % (37.0-47.0); Hemoglobin 12.9 g/dL (12.0-15.0); Immature Granulocyte Absolute 0.02 K/mm3 (0.00-0.031); Immature Granulocyte Percent A 0.3 % (0-0.5); Lymphocytes Absolute Auto 1.36 K/mm3 (0.9-3.2); Lymphocytes Percent Auto 20.9 % (18.3-44.2); Mean Corpuscular HGB Conc 30.9 g/dl (32-36); Mean Corpuscular Hemoglobin 26.4 pg (26-34); Mean Corpuscular Volume 85.3 fl (80-100); Mean Platelet Volume 11.8 fl (7.4-10.4); Monocytes Absolute Auto 0.7 K/mm3 (0.1-0.6); Monocytes Percent Auto 10.1 % (2.6-8.5); Neutrophils Absolute Auto 4.4 K/mm3 (1.3-6.7); Neutrophils Percent Auto 67.6 % (45.5-73.1); Nucleated Red Blood Cells Perc 0.6 % (0.0-0.2); Platelet Count Result 171 k/mm3 (150-375); Red Blood Count 4.89 M/mm3 (4.2-5.4); Red Cell Distribution Width 20.1 % (11.5-14.5); White Blood Count 6.5 K/mm3 (4.5-10.0)
[2021-10-27 05:01] LABS: Hemoglobin A1C 6.5 % (<5.7)
[2021-10-27 05:02] LABS: Blood Urea Nitrogen 36 mg/dL (7-17); Carbon Dioxide > 40 mmol/L (22-30); Chloride 85 mmol/L (98-107); Estimated CRCL calculation 37 ml/min; Estimated Glomerular Filt Rate 30; Glucose 142 mg/dL (65-110); Potassium 3.5 mmol/L (3.4-5.0); Sodium 137 mmol/L (137-145)
[2021-10-27 05:12] LABS: Troponin I 0.108 ng/mL (0.000-0.034)
[2021-10-27] MEDS: NITROGLYCERIN OINTMENT 1 INCH DOSE TRANSDERM ×2 (06:10→12:15)
[2021-10-27] MEDS: UMECLIDINIUM BROMIDE 62.5 MCG ELLIPTA 2 PUFF INHALATION (07:58)
[2021-10-27 08:11] LABS: Glucose Point of Care 152 mg/dl (65-105)
--- NOTE | 2021-10-27 08:29 | PM.IMPN ---
Progress Note: A&P Assessment and Plan (1) Elevated troponin: Code(s): R77.8 - Other specified abnormalities of plasma proteins Status: Acute (2) Acute on chronic respiratory failure with hypoxia and hypercapnia: Code(s): J96.21 - Acute and chronic respiratory failure with hypoxia; J96.22 - Acute and chronic respiratory failure with hypercapnia Status: Acute (3) Acute hypokalemia: Code(s): E87.6 - Hypokalemia Status: Acute (4) CKD (chronic kidney disease): Code(s): N18.9 - Chronic kidney disease, unspecified Status: Acute (5) CHF (congestive heart failure): Code(s): I50.9 - Heart failure, unspecified Status: Acute (6) COPD (chronic obstructive pulmonary disease): Code(s): J44.9 - Chronic obstructive pulmonary disease, unspecified Status: Acute Plan # acute on chronic respiratory failure with hypoxia and hypercapnia: Typically worse 2.5 L at home to 3.5 L on admission. History of COPD. Chest x-ray with cardiomegaly with interstitial edema. Likely fluid overloaded. Increased swelling in her lower extremities well. ABG 7.48/64/59 /47. BNP elevated at 7000 V/Q scan ordered for possibility of PE S unable to do CT scan due to her renal function. Continue IV diuresis as ordered. venous duplex negative for DVT #Hypokalemia potassium of 3.0 on admission. replace, Recheck and monitor # CKD stage 3 creatinine of 2.1. Continue to monitor # acute on chronic congestive heart failure echo from 07/16/2021 with EF of 20-25%. Moderate pulmonary hypertension no other valvular abnormalities. Lasix changed to IV. Weight daily fluid restriction. cardiology consultation. # elevated troponin no chest pain. EKG with sinus rhythm and left bundle branch block no significant change from previous EKGs. Received a full-dose Lovenox in the ER. Initial troponin 0.050. wade to 0.108 # History of nonischemic cardiomyopathy with ejection fraction 20% status post ICD placement by Dr. Vo from [place] [facility]. # COPD continue home inhaler including ellipta. Not in exacerbation # anxiety depression home medication # hypertension: Not optimal on admission. Likely due to CHF. IV diuresis and continue home medication. Improving JESSICA on CPAP with home settings # type 2 diabetes mellitus on long-term use of insulin monitor Accu-Cheks. Continue Levemir . Recent A1c 6.4. # recent admission with positive for bedbugs # DVT prophylax heparin subQ , received full does lovenox 10/26/2021 # code status full code Subjective Date/time seen: 10/27/21 08:29 Interval history: HPI:This is a 51-year-old female patient who came to the emergency room via ambulance anemia of weakness, nausea vomiting for the last 2 nights and once this morning.? The patient typically wears oxygen at home 2 L per nasal cannula.? She is currently up to 3.5 L.? She has a history of congestive heart failure, diabetes and obstructive sleep apnea with chronic kidney disease.? Chest x-ray was read as cardiomegaly with interstitial edema.? Her potassium was noted to be 3.0.? She was supplemented with 40 mEq of potassium and then she was given Lasix 40 mg IV push as well as aspirin and nitroglycerin.? She was given subcu Lovenox.? She denies any chest pain.? Troponin was noted to be 0.050.? EKG was read as sinus rhythm with occasional ventricular premature complexes.? The patient is being admitted to observation status on the date of service of 10/26/2021. 10/27/2021 presents with weakness nausea vomiting And worsening hypoxia. no fever, chills, sob on exertion, no chest pain reported. lower extremity. feels a bit better today Review of Systems Review of Systems: All systems reviewed & are unremarkable except as noted in HPI and below Exam Narrative: GENERAL: The patient is well developed, not in acute distress HEENT: Nonicteric sclerae, PERRLA, EOMI. Oropharynx clear. Moist
[2021-10-27] MEDS: FUROSEMIDE INJ 40 MG/4 ML VIAL IV PUSH ×2 (09:37→17:33)
[2021-10-27] MEDS: ISOSORBIDE MONONITRATE 30 MG TAB.ER.24H PO (09:38)
[2021-10-27] MEDS: LOSARTAN POTASSIUM 50 MG TABLET PO (09:38)
[2021-10-27] MEDS: ROSUVASTATIN 5 MG TABLET PO (09:38)
[2021-10-27] MEDS: allopurinoL 100 MG TABLET PO (09:38)
[2021-10-27] MEDS: ASPIRIN 81 MG ENTERIC TABLET PO (09:38)
[2021-10-27] MEDS: calcitrioL 0.25 MCG CAPSULE PO (09:38)
[2021-10-27] MEDS: FERROUS SULFATE 324 MG TABLET PO (09:38)
[2021-10-27] MEDS: ESCITALOPRAM OXALATE 10 MG TABLET PO (09:38)
[2021-10-27] MEDS: carvediloL 25 MG TABLET PO ×2 (09:38→17:33)
[2021-10-27] MEDS: EMPAGLIFLOZIN 10 MG TABLET PO (09:38)
[2021-10-27] MEDS: buPROPion HCL XL (24 HR) 150 MG TABCR 300 MG PO (09:39)
[2021-10-27] MEDS: POTASSIUM CHLORIDE 20 MEQ PACKET (FOR LIQUID) 40 MEQ PO (09:40)
[2021-10-27 10:38] LABS: Troponin I 0.097 ng/mL (0.000-0.034)
[2021-10-27] MEDS: INSULIN ASPART (*BKC) 100 UNITS/ML SUB-Q ×2 (12:15→17:32)
[2021-10-27 12:20] LABS: Glucose Point of Care 218 mg/dl (65-105)
--- NOTE | 2021-10-27 13:22 | PM.CNCAR ---
Assessment and Plan Assessment and plan (1) CHF (congestive heart failure): Code(s): I50.9 - Heart failure, unspecified Status: Acute Plan This is a 51-year-old patient with longstanding systolic heart failure. Apparently she has had frequent admissions now with shortness of breath and decompensations despite the medical regimen that is outlined above. She has a very difficult physical exam terms of her volume because of her concomitant morbid obesity. At this point I would recommend trying to transition her from losartan to Entresto as she has a very low ejection fraction. We should also consider stopping her potassium and adding Aldactone to the regimen. It would be better for her continuity of care if she would present to the hospital where her physicians work but she seems to be firm in her decision to come here when she has difficulty like this. Larry Dougherty MD [facility] History of Present Illness History of Present Illness Consult date/time: 10/27/21 13:22 Consult reason: congestive heart failure Reason For Visit: N STEMI, CKD, actue resp failure, hypokalemia, CHF Narrative: This is a 51-year-old woman that I am seeing at the request of the hospitalist for management of congestive heart failure decompensation. Patient is unknown to me prior to this encounter. She apparently is well known to cardiologists of [facility] follows with them for a diagnosis of nonischemic cardiomyopathy for a long time. She is a lady that has morbid obesity as well and he came to the hospital yesterday because of worsening shortness of breath and some increasing abdominal girth and lower extremity edema. He was just in this hospital for the same and was discharged 6 days before coming back into the hospital this time. She does have nasal cannula oxygen at home. Echocardiography during her admission earlier in the year when we do our practice did see her in consultation showed very large left ventricle with a low ejection fraction of about 20%. She follows with Dr. Vo of [facility] who managed her her heart failure medication and her defibrillator. For some reason though when she has a decompensation she comes to this hospital rather than going to 1 of the facilities where her physician practices. She is not having any chest pain pressure or heaviness she denies any history of palpitations or syncope. Her medical regimen at this time concern for heart failure consists of aspirin, carvedilol at full dose,: Are 5 mg b.i.d., furosemide 40 mg b.i.d., isosorbide 30 mg daily, Jardiance 10 mg daily and losartan 50 mg daily. Review of Systems Constitutional: Constitutional: Reports fatigue and Reports lethargy Eyes: Eyes: Reports no additional eye complaints ENT: Reports system reviewed and no additional complaints, except as documented Cardiovascular: Cardiovascular: Reports leg edema Respiratory: Respiratory: Reports dyspnea Gastrointestinal: Gastrointestinal: Reports no additional gastrointestinal complaints Musculoskeletal: Musculoskeletal: Reports back pain Neurologic: Reports system reviewed and no additional complaints, except as documented Endocrine: Endocrine: Reports no additional endocrine complaints Hematologic/Lymphatic: Hematologic/Lymphatic: Reports no additional hematologic/lymphatic complaints Allergic/Immunologic: Allergic/Immunologic: Reports no additional allergic/immunologic complaints [facility] Past Medical History Medical History Body mass index [BMI] 45.0-49.9, adult (04/04/18) Cardiac defibrillator in place Cardiac defibrillator in place Chronic kidney disease, stage III (moderate) Congestive heart failure, unspecified COPD (chronic obstructive pulmonary disease) Dependence on supplemental oxygen Essential hypertension JESSICA (obstructive sleep apnea) Pacemaker Type 2 diabetes mellitus with hyperglycemia, with eldon
[2021-10-27] MEDS: HEPARIN SODIUM 5,000 UNITS/ML VIAL 5000 UNITS SUB-Q ×2 (14:02→21:13)
--- NOTE | 2021-10-27 15:48 | PCOTNOTE ---
Per nursing pt. still awaiting rule out of pulmonary embolism and remains on bed rest. Unable to be seen by therapy at this time. Will follow.
[2021-10-27 17:17] LABS: Glucose Point of Care 203 mg/dl (65-105)
[2021-10-27 20:03] LABS: Glucose Point of Care 248 mg/dl (65-105)
[2021-10-27] MEDS: QUEtiapine FUMARATE 100 MG TABLET 200 MG PO (21:12)
[2021-10-27] MEDS: SACUBITRIL/VALSARTAN 24-26 MG TABLET 1 TAB PO (21:13)
[2021-10-27] MEDS: INSULIN DETEMIR 100 UNITS/ML 8 UNITS SUB-Q (21:13)
[2021-10-28] VITALS (16 sets, daily range): BP systolic 112–151; BP diastolic 57–96; PULSE 62–80; RESP 18–20; TEMP 36.2–37.1; O2SAT 94–100
[2021-10-28 05:15] LABS: Basophils Percent Auto 0.3 % (0.2-1.2); Eosinophils Absolute Auto 0.1 K/mm3 (0-0.3); Eosinophils Percent Auto 2.2 % (0-4.4); Hematocrit 40.6 % (37.0-47.0); Hemoglobin 12.2 g/dL (12.0-15.0); Immature Granulocyte Absolute 0.02 K/mm3 (0.00-0.031); Immature Granulocyte Percent A 0.3 % (0-0.5); Lymphocytes Absolute Auto 1.26 K/mm3 (0.9-3.2); Lymphocytes Percent Auto 20.9 % (18.3-44.2); Mean Corpuscular Hemoglobin 26.3 pg (26-34); Mean Corpuscular Volume 87.7 fl (80-100); Mean Platelet Volume 11.6 fl (7.4-10.4); Monocytes Absolute Auto 0.8 K/mm3 (0.1-0.6); Monocytes Percent Auto 12.8 % (2.6-8.5); Neutrophils Absolute Auto 3.8 K/mm3 (1.3-6.7); Neutrophils Percent Auto 63.5 % (45.5-73.1); Nucleated Red Blood Cells Perc 0.3 % (0.0-0.2); Platelet Count Result 153 k/mm3 (150-375); Red Blood Count 4.63 M/mm3 (4.2-5.4); Red Cell Distribution Width 20.1 % (11.5-14.5)
[2021-10-28] MEDS: HEPARIN SODIUM 5,000 UNITS/ML VIAL 5000 UNITS SUB-Q ×3 (05:16→21:02)
[2021-10-28 05:27] LABS: Alanine Aminotransferase 16 U/L (6-35); Albumin Level 3.4 g/dL (3.5-5.1); Alkaline Phosphatase 43 U/L (38-126); Aspartate Amino Transferase 25 U/L (14-36); Blood Urea Nitrogen 34 mg/dL (7-17); Calcium 9.2 mg/dL (8.4-10.2); Carbon Dioxide > 40 mmol/L (22-30); Chloride 89 mmol/L (98-107); Estimated CRCL calculation 39 ml/min; Estimated Glomerular Filt Rate 32; Glucose 114 mg/dL (65-110); Potassium 3.4 mmol/L (3.4-5.0); Sodium 141 mmol/L (137-145)
[2021-10-28 08:08] LABS: Glucose Point of Care 122 mg/dl (65-105)
[2021-10-28] MEDS: UMECLIDINIUM BROMIDE 62.5 MCG ELLIPTA 2 PUFF INHALATION (08:43)
[2021-10-28] MEDS: carvediloL 25 MG TABLET PO ×2 (09:13→17:05)
[2021-10-28] MEDS: ROSUVASTATIN 5 MG TABLET PO (09:13)
[2021-10-28] MEDS: FUROSEMIDE INJ 40 MG/4 ML VIAL IV PUSH ×2 (09:13→17:05)
[2021-10-28] MEDS: calcitrioL 0.25 MCG CAPSULE PO (09:13)
[2021-10-28] MEDS: EMPAGLIFLOZIN 10 MG TABLET PO (09:13)
[2021-10-28] MEDS: ESCITALOPRAM OXALATE 10 MG TABLET PO (09:13)
[2021-10-28] MEDS: FERROUS SULFATE 324 MG TABLET PO (09:14)
[2021-10-28] MEDS: SACUBITRIL/VALSARTAN 24-26 MG TABLET 1 TAB PO ×2 (09:14→21:03)
[2021-10-28] MEDS: allopurinoL 100 MG TABLET PO (09:14)
[2021-10-28] MEDS: ASPIRIN 81 MG ENTERIC TABLET PO (09:14)
[2021-10-28] MEDS: SPIRONOLACTONE 25 MG TABLET PO (09:14)
[2021-10-28] MEDS: ISOSORBIDE MONONITRATE 30 MG TAB.ER.24H PO (09:15)
[2021-10-28] MEDS: buPROPion HCL XL (24 HR) 150 MG TABCR 300 MG PO (09:15)
--- NOTE | 2021-10-28 09:58 | PCOTNOTE ---
Per MD Dr. Conley, patient is cleared to perform OT evaluation at this time.
--- NOTE | 2021-10-28 10:02 | PM.PNCARD ---
Progress Note: A&P Assessment and Plan (1) CHF (congestive heart failure): Code(s): I50.9 - Heart failure, unspecified Status: Acute Assessment and Plan: History of longstanding systolic heart failure. Presents to the hospital with complaints of shortness of breath, swelling, and increasing abdominal girth. She is being diuresed and her medical regimen for her cardiomyopathy is being optimized. She is improving. Continue diuresis with IV furosemide for now Continue GDMT with Entresto, spironolactone, jardiance NORM hose Low sodium diet Daily weights Accurate I&O BMP in a.m. CHF counseling (2) Cardiomyopathy: Code(s): I42.9 - Cardiomyopathy, unspecified Status: Acute Assessment and Plan: EF 20% by recent echo. Followed by [facility]. Medical therapy as above. (3) Cardiac defibrillator in place: Code(s): Z95.810 - Presence of automatic (implantable) cardiac defibrillator Status: Acute Assessment and Plan: Managed by SL. Plan This is a 51-year-old patient with longstanding systolic heart failure. Apparently she has had frequent admissions now with shortness of breath and decompensations despite the medical regimen that is outlined above. She has a very difficult physical exam terms of her volume because of her concomitant morbid obesity. At this point I would recommend trying to transition her from losartan to Entresto as she has a very low ejection fraction. We should also consider stopping her potassium and adding Aldactone to the regimen. It would be better for her continuity of care if she would present to the hospital where her physicians work but she seems to be firm in her decision to come here when she has difficulty like this. Larry Dougherty MD [facility] Subjective Date/time seen: 10/28/21 10:02 Interval history: She's feeling slightly better today. Breathing is back to baseline. Still has some lower extremity swelling but feels her abdominal fullness is improving. Review of Systems Constitutional: Constitutional: Reports fatigue and Reports lethargy Eyes: Eyes: Reports no additional eye complaints ENT: Reports system reviewed and no additional complaints, except as documented Cardiovascular: Cardiovascular: Reports leg edema and Reports dyspnea Respiratory: Respiratory: Reports dyspnea Gastrointestinal: Gastrointestinal: Reports no additional gastrointestinal complaints Musculoskeletal: Musculoskeletal: Reports back pain Neurologic: Reports system reviewed and no additional complaints, except as documented Endocrine: Endocrine: Reports no additional endocrine complaints and Reports fatigue Hematologic/Lymphatic: Hematologic/Lymphatic: Reports no additional hematologic/lymphatic complaints Allergic/Immunologic: Allergic/Immunologic: Reports no additional allergic/immunologic complaints Exam Const: General: comfortable and no acute distress Nutritional Appearance: obese Orientation/consciousness: patient oriented x3 HENMT: Head: normal to inspection Mouth: Yes moist mucous membranes Eyes: Sclera: sclerae normal Pupils: Equal, round and reactive pupils present Neck: Neck: supple Other: Carotid pulses are normal bilaterally. Very difficult to assess JVD given her body habitus. Resp: Other: Breath sounds are markedly diminished in both lung correa relatively clear but very difficult exam Cardio: Rate: regular rate Rhythm: regular rhythm Other: PMI is not palpable, no obvious murmur. S3 appears to be audible difficult exam GI: Auscultation: normal bowel sounds Skin: General skin exam: normal color Neuro: General: patient oriented x3 Cranial nerves: Yes Equal, round and reactive pupils present Other: Alert and oriented normal cognition Extrem: Right lower extremity: edema Left lower extremity: edema Other: Moderate bilateral pitting edema Psych: Appearance: grossly normal Mental Status: mental sta
[2021-10-28] MEDS: INSULIN ASPART (*BKC) 100 UNITS/ML SUB-Q (12:22)
[2021-10-28 12:54] LABS: Glucose Point of Care 243 mg/dl (65-105)
[2021-10-28 16:34] LABS: Glucose Point of Care 189 mg/dl (65-105)
--- NOTE | 2021-10-28 17:04 | PM.IMPN ---
Progress Note: A&P Assessment and Plan (1) Elevated troponin: Code(s): R77.8 - Other specified abnormalities of plasma proteins Status: Acute (2) Acute on chronic respiratory failure with hypoxia and hypercapnia: Code(s): J96.21 - Acute and chronic respiratory failure with hypoxia; J96.22 - Acute and chronic respiratory failure with hypercapnia Status: Acute (3) Acute hypokalemia: Code(s): E87.6 - Hypokalemia Status: Acute (4) CKD (chronic kidney disease): Code(s): N18.9 - Chronic kidney disease, unspecified Status: Acute (5) CHF (congestive heart failure): Code(s): I50.9 - Heart failure, unspecified Status: Acute (6) COPD (chronic obstructive pulmonary disease): Code(s): J44.9 - Chronic obstructive pulmonary disease, unspecified Status: Acute Plan # acute on chronic respiratory failure with hypoxia and hypercapnia: Typically worse 2.5 L at home to 3.5 L on admission. History of COPD. Chest x-ray with cardiomegaly with interstitial edema. Likely fluid overloaded. Increased swelling in her lower extremities well. ABG 7.48/64/59 /47. BNP elevated at 7000 V/Q scan ordered for possibility of PE S unable to do CT scan due to her renal function. which came back as indeterminate.Continue IV diuresis as ordered. venous duplex negative for DVT #Hypokalemia potassium of 3.0 on admission. replace, Recheck and monitor # CKD stage 3 creatinine of 2.1. Continue to monitor Remains stable # acute on chronic congestive heart failure echo from 07/16/2021 with EF of 20-25%. Moderate pulmonary hypertension no other valvular abnormalities. Lasix changed to IV. Weight daily fluid restriction. cardiology consultation. appreciate their recommendations. # elevated troponin no chest pain. EKG with sinus rhythm and left bundle branch block no significant change from previous EKGs. Received a full-dose Lovenox in the ER. Initial troponin 0.050. wade to 0.108 # History of nonischemic cardiomyopathy with ejection fraction 20% status post ICD placement by Dr. Vo from [place] [facility]. # COPD continue home inhaler including ellipta. Not in exacerbation # anxiety depression home medication # hypertension: Not optimal on admission. Likely due to CHF. IV diuresis and continue home medication. Improving JESSICA on CPAP with home settings # type 2 diabetes mellitus on long-term use of insulin monitor Accu-Cheks. Continue Levemir . Recent A1c 6.4. # recent admission with positive for bedbugs # DVT prophylax heparin subQ , received full does lovenox 10/26/2021 # code status full code Subjective Date/time seen: 10/28/21 17:04 Interval history: HPI:This is a 51-year-old female patient who came to the emergency room via ambulance anemia of weakness, nausea vomiting for the last 2 nights and once this morning.? The patient typically wears oxygen at home 2 L per nasal cannula.? She is currently up to 3.5 L.? She has a history of congestive heart failure, diabetes and obstructive sleep apnea with chronic kidney disease.? Chest x-ray was read as cardiomegaly with interstitial edema.? Her potassium was noted to be 3.0.? She was supplemented with 40 mEq of potassium and then she was given Lasix 40 mg IV push as well as aspirin and nitroglycerin.? She was given subcu Lovenox.? She denies any chest pain.? Troponin was noted to be 0.050.? EKG was read as sinus rhythm with occasional ventricular premature complexes.? The patient is being admitted to observation status on the date of service of 10/26/2021. 10/27/2021 presents with weakness nausea vomiting And worsening hypoxia. no fever, chills, sob on exertion, no chest pain reported. lower extremity. feels a bit better today 10/28/2021 no overnight events. Feeling little better. Oxygen requirements about the same. Denies any chest pain or cough fever Review of Systems Review of Systems: All
[2021-10-28 20:56] LABS: Glucose Point of Care 254 mg/dl (65-105)
[2021-10-28] MEDS: QUEtiapine FUMARATE 100 MG TABLET 200 MG PO (21:03)
[2021-10-28] MEDS: INSULIN DETEMIR 100 UNITS/ML 8 UNITS SUB-Q (21:05)
[2021-10-29] VITALS (24 sets, daily range): BP systolic 108–144; BP diastolic 69–88; PULSE 68–92; RESP 18–20; TEMP 36.2–36.6; O2SAT 87–100
[2021-10-29 05:19] LABS: Basophils Percent Auto 0.3 % (0.2-1.2); Eosinophils Absolute Auto 0.1 K/mm3 (0-0.3); Eosinophils Percent Auto 2.1 % (0-4.4); Hematocrit 42.8 % (37.0-47.0); Hemoglobin 13.2 g/dL (12.0-15.0); Immature Granulocyte Absolute 0.01 K/mm3 (0.00-0.031); Immature Granulocyte Percent A 0.2 % (0-0.5); Lymphocytes Absolute Auto 1.35 K/mm3 (0.9-3.2); Mean Corpuscular HGB Conc 30.8 g/dl (32-36); Mean Corpuscular Hemoglobin 26.8 pg (26-34); Mean Corpuscular Volume 86.8 fl (80-100); Mean Platelet Volume 11.1 fl (7.4-10.4); Monocytes Absolute Auto 0.9 K/mm3 (0.1-0.6); Monocytes Percent Auto 13.9 % (2.6-8.5); Neutrophils Absolute Auto 3.8 K/mm3 (1.3-6.7); Neutrophils Percent Auto 61.5 % (45.5-73.1); Nucleated Red Blood Cells Perc 0.5 % (0.0-0.2); Platelet Count Result 162 k/mm3 (150-375); Red Blood Count 4.93 M/mm3 (4.2-5.4); Red Cell Distribution Width 20.2 % (11.5-14.5); White Blood Count 6.1 K/mm3 (4.5-10.0)
[2021-10-29] MEDS: HEPARIN SODIUM 5,000 UNITS/ML VIAL 5000 UNITS SUB-Q ×3 (05:31→20:58)
[2021-10-29 05:35] LABS: Alanine Aminotransferase 20 U/L (6-35); Albumin Level 3.5 g/dL (3.5-5.1); Alkaline Phosphatase 41 U/L (38-126); Aspartate Amino Transferase 30 U/L (14-36); Bilirubin,Total 1.1 mg/dL (0.2-1.3); Blood Urea Nitrogen 35 mg/dL (7-17); Calcium 9.6 mg/dL (8.4-10.2); Carbon Dioxide > 40 mmol/L (22-30); Chloride 88 mmol/L (98-107); Estimated CRCL calculation 41 ml/min; Estimated Glomerular Filt Rate 34; Glucose 185 mg/dL (65-110); Potassium 4.4 mmol/L (3.4-5.0); Sodium 138 mmol/L (137-145)
--- NOTE | 2021-10-29 07:23 | PM.IMPN ---
Progress Note: A&P Assessment and Plan (1) Elevated troponin: Code(s): R77.8 - Other specified abnormalities of plasma proteins Status: Acute Assessment and Plan: Appreciate cardiology consultation, do not suspect acute cardiac injury, troponins trending down (2) Acute on chronic respiratory failure with hypoxia and hypercapnia: Code(s): J96.21 - Acute and chronic respiratory failure with hypoxia; J96.22 - Acute and chronic respiratory failure with hypercapnia Status: Acute Assessment and Plan: Typically wears 2-2.5 L at home, 3.5 L on admission, 3 L today Continue diuresis per Cardiology, improving (3) Acute hypokalemia: Code(s): E87.6 - Hypokalemia Status: Acute Assessment and Plan: Resolved, continue to monitor (4) CKD (chronic kidney disease): Code(s): N18.9 - Chronic kidney disease, unspecified Status: Acute Assessment and Plan: Appears to be at baseline renal function (5) CHF (congestive heart failure): Code(s): I50.9 - Heart failure, unspecified Status: Acute Assessment and Plan: Diuresis per Cardiology Transitioned from losartan to Entresto Potassium supplementation discontinued in favor of aldactone Cont jardiance EF noted to be 20% ICD in place, managed by [facility] (6) COPD (chronic obstructive pulmonary disease): Code(s): J44.9 - Chronic obstructive pulmonary disease, unspecified Status: Acute Assessment and Plan: Appears to be at baseline (7) JESSICA (obstructive sleep apnea): Code(s): G47.33 - Obstructive sleep apnea (adult) (pediatric) Status: Acute Assessment and Plan: Continue CPAP (8) Type 2 diabetes mellitus with hyperglycemia, with long-term current use of insulin: Code(s): E11.65 - Type 2 diabetes mellitus with hyperglycemia; Z79.4 - long-term (current) use of insulin Status: Acute Assessment and Plan: Controlled, A1c 6.5, continue Accu-Cheks and sliding scale insulin (9) Body mass index [BMI] 45.0-49.9, adult: Onset Date: 04/04/18 Code(s): Z68.42 - Body mass index [BMI] 45.0-49.9, adult Status: Acute (10) Essential hypertension: Code(s): I10 - Essential (primary) hypertension Status: Acute Assessment and Plan: Better controlled with diuresis and Entresto, continue current management Plan Recent admission positive for bedbugs DVT prophylax heparin subQ Code status full code Additional Plan Some concern for PE and the etiology for her hypoxia in the ER, lower extremity Dopplers as well as V/Q scan all ordered. Dopplers were negative, V/Q was indeterminate. Do not suspect PE. Will hold off on full-dose anticoagulation. Subjective Date/time seen: 10/29/21 07:23 Interval history: 10/29: Still on 3 L O2. No overnight events noted. No chest pain or shortness of breath. No nausea, vomiting or diarrhea. No fevers or chills. Review of Systems Review of Systems: 12 point review of systems was assessed and was negative except as noted in the HPI Exam Narrative: General: No acute distress, alert and oriented per baseline, on 3 L nasal cannula HEENT: Atraumatic, normocephalic, mucous membranes moist CV: Regular rate and rhythm, S1, S2 Lungs: Clear to auscultation bilaterally, no rales or crackles noted, no wheezes, diminished at bases Abdomen: Soft, nontender, nondistended Extremities: Normal to inspection, + 2 pitting edema Skin: No rashes noted, no lesions or wounds seen Psych: Euthymic, normal affect Objective Data Vital Signs Vital Signs: Vital Signs - 24 hr 10/28/21 08:00 10/28/21 08:00 10/28/21 09:13 Temperature 98.7 F Pulse Rate 71 71 68 Respiratory Rate 18 18 Blood Pressure 151/80 H Pulse Oximetry 100 100 Oxygen Delivery Nasal Cannula Oxygen Flow Rate 2 10/28/21 08:00 10/28/21 10:00 10/28/21 10:49 Temperature Pulse Rate 72 76 Respiratory Rate Blood Pressur
[2021-10-29] MEDS: EMPAGLIFLOZIN 10 MG TABLET PO (08:08)
[2021-10-29] MEDS: carvediloL 25 MG TABLET PO ×2 (08:08→17:30)
[2021-10-29] MEDS: ROSUVASTATIN 5 MG TABLET PO (08:08)
[2021-10-29] MEDS: FUROSEMIDE INJ 40 MG/4 ML VIAL IV PUSH (08:08)
[2021-10-29] MEDS: SACUBITRIL/VALSARTAN 24-26 MG TABLET 1 TAB PO ×2 (08:08→20:58)
[2021-10-29] MEDS: ESCITALOPRAM OXALATE 10 MG TABLET PO (08:08)
[2021-10-29] MEDS: calcitrioL 0.25 MCG CAPSULE PO (08:08)
[2021-10-29] MEDS: buPROPion HCL XL (24 HR) 150 MG TABCR 300 MG PO (08:09)
[2021-10-29] MEDS: FERROUS SULFATE 324 MG TABLET PO (08:09)
[2021-10-29] MEDS: allopurinoL 100 MG TABLET PO (08:09)
[2021-10-29] MEDS: SPIRONOLACTONE 25 MG TABLET PO (08:09)
[2021-10-29] MEDS: ISOSORBIDE MONONITRATE 30 MG TAB.ER.24H PO (08:09)
[2021-10-29] MEDS: ASPIRIN 81 MG ENTERIC TABLET PO (08:09)
[2021-10-29 08:51] LABS: Glucose Point of Care 174 mg/dl (65-105)
[2021-10-29] MEDS: UMECLIDINIUM BROMIDE 62.5 MCG ELLIPTA 2 PUFF INHALATION (08:59)
--- NOTE | 2021-10-29 09:56 | PM.PNCARD ---
Progress Note: A&P Assessment and Plan (1) CHF (congestive heart failure): Code(s): I50.9 - Heart failure, unspecified Status: Acute Assessment and Plan: History of longstanding systolic heart failure. Presents to the hospital with complaints of shortness of breath, swelling, and increasing abdominal girth. She is being diuresed and her medical regimen for her cardiomyopathy is being optimized. She is improving. Will decrease IV furosemide 40 mg IV daily. Anticipate transition to oral diuretics tomorrow in [place] within the next 24-48 hours Continue GDMT with Entresto, spironolactone, evelin ZHENG hose Low sodium diet Daily weights Accurate I&O BMP in a.m. CHF counseling (2) Cardiomyopathy: Code(s): I42.9 - Cardiomyopathy, unspecified Status: Acute Assessment and Plan: EF 20% by recent echo. Followed by [facility]. Medical therapy as above. (3) Cardiac defibrillator in place: Code(s): Z95.810 - Presence of automatic (implantable) cardiac defibrillator Status: Acute Assessment and Plan: Managed by [facility]. Subjective Date/time seen: 10/29/21 09:56 Interval history: 51-year-old with CHF, worsening shortness of breath Date of service 10/29/2021: She is doing okay. Feeling better. Swelling has improved abdominal distention is improved. Review of Systems Constitutional: Constitutional: Reports fatigue and Reports lethargy Eyes: Eyes: Reports no additional eye complaints ENT: Reports system reviewed and no additional complaints, except as documented Cardiovascular: Cardiovascular: Reports leg edema and Reports dyspnea Respiratory: Respiratory: Reports dyspnea Gastrointestinal: Gastrointestinal: Reports no additional gastrointestinal complaints Musculoskeletal: Musculoskeletal: Reports back pain Neurologic: Reports system reviewed and no additional complaints, except as documented Endocrine: Endocrine: Reports no additional endocrine complaints and Reports fatigue Hematologic/Lymphatic: Hematologic/Lymphatic: Reports no additional hematologic/lymphatic complaints Allergic/Immunologic: Allergic/Immunologic: Reports no additional allergic/immunologic complaints Exam Const: General: comfortable and no acute distress Nutritional Appearance: obese Orientation/consciousness: patient oriented x3 Other: Massively obese black female seated on the bedside chair appears to be comfortable wearing nasal cannula oxygen HENMT: Head: normal to inspection Mouth: Yes moist mucous membranes Eyes: Sclera: sclerae normal Neck: Neck: supple Other: Carotid pulses are normal bilaterally. Very difficult to assess JVD given her body habitus. Resp: Other: Breath sounds are markedly diminished in both lung correa relatively clear but very difficult exam Cardio: Rate: regular rate Rhythm: regular rhythm Other: PMI is not palpable, no obvious murmur. S3 appears to be audible difficult exam GI: Auscultation: normal bowel sounds Skin: General skin exam: normal color Neuro: General: patient oriented x3 Speech: normal speech Other: Alert and oriented normal cognition Extrem: Right lower extremity: edema Left lower extremity: edema Other: Mild bilateral pitting edema Psych: Appearance: grossly normal Mental Status: mental status grossly normal Objective Data Vital Signs Vital Signs: Vital Signs - 24 hr 10/28/21 10:00 10/28/21 10:49 10/28/21 11:39 Temperature Pulse Rate 76 Respiratory Rate Blood Pressure Pulse Oximetry Oxygen Delivery Nasal Cannula Nasal Cannula Oxygen Flow Rate 3 3 10/28/21 12:00 10/28/21 12:00 10/28/21 12:00 Temperature 36.5 C Pulse Rate 76 62 66 Respiratory Rate 18 20 Blood Pressure 132/96 H Pulse Oximetry 100 100 Oxygen Delivery Nasal Cannula Oxygen Flow Rate 3 10/28/21 14:00 10/28/21 16:00 10/28/21 16:00 Temperature Pulse Rate 68 68 74 Respiratory Rate 20 Blood P
[2021-10-29] MEDS: INSULIN ASPART (*BKC) 100 UNITS/ML SUB-Q ×2 (12:39→17:29)
[2021-10-29 12:48] LABS: Glucose Point of Care 381 mg/dl (65-105)
--- NOTE | 2021-10-29 13:48 | HOMEO2EVAL ---
Evaluation was performed at [facility] Home Oxygen Evaluation RC: Home Oxygen (O2) Evaluation Start: 10/29/21 13:44 Freq: Status: Active Protocol: RPE Activity Type Activity Date Activity User E-sign Co-sign Detail Recorded Client Recorded Date Recorded By Document 10/29/21 13:05 DJO [email or web address] 10/29/21 13:47 DJO Document 10/29/21 13:10 [email or web address] [email or web address] 10/29/21 13:47 DJO Document 10/29/21 13:15 [email or web address] [email or web address] 10/29/21 13:47 DJO Document 10/29/21 13:20 [email or web address] [email or web address] 10/29/21 13:47 DJO Document 10/29/21 13:35 [email or web address] [email or web address] 10/29/21 13:47 DJO 10/29/21 10/29/21 10/29/21 13:05 13:10 13:15 Home O2 Evaluation Test Phase Resting Resting Resting Oxygen Delivery Room Air Nasal Cannula Nasal Cannula Oxygen Flow Rate (L/min) 1 2 Pulse Oximetry (90-100 %) 87 L 88 L 91 Pulse Rate (60-100 beats/min) 75 92 70 Activity Tolerance Treatment Charges O2 Evaluation - Inpatient 10/29/21 10/29/21 13:20 13:35 Home O2 Evaluation Test Phase Exercise Resting Oxygen Delivery Nasal Cannula Nasal Cannula Oxygen Flow Rate (L/min) 2 2 Pulse Oximetry (90-100 %) 90 91 Pulse Rate (60-100 beats/min) 92 74 Activity Tolerance Fair Treatment Charges
--- NOTE | 2021-10-29 13:48 | PCRCNOTE ---
HOME O2 EVAL COMPLETE, NO CHANGES FROM HOME SETTING. 2L AT REST AND WITH ACTIVITY. PT HAS PORTABLE TANK IN ROOM FOR DISCHARGE. HOME COMPANY IS [employer]
[2021-10-29 16:49] LABS: Glucose Point of Care 236 mg/dl (65-105)
[2021-10-29 20:52] LABS: Glucose Point of Care 197 mg/dl (65-105)
[2021-10-29] MEDS: QUEtiapine FUMARATE 100 MG TABLET 200 MG PO (20:57)
[2021-10-29] MEDS: INSULIN DETEMIR 100 UNITS/ML 8 UNITS SUB-Q (20:58)
[2021-10-30] VITALS (8 sets, daily range): BP systolic 141–153; BP diastolic 85–97; PULSE 73–87; RESP 16–20; TEMP 36.6; O2SAT 93–100
[2021-10-30 05:24] LABS: Potassium 3.3 mmol/L (3.4-5.0)
[2021-10-30] MEDS: HEPARIN SODIUM 5,000 UNITS/ML VIAL 5000 UNITS SUB-Q (05:52)
[2021-10-30] MEDS: FUROSEMIDE INJ 40 MG/4 ML VIAL IV PUSH (07:55)
[2021-10-30] MEDS: buPROPion HCL XL (24 HR) 150 MG TABCR 300 MG PO (07:56)
[2021-10-30] MEDS: FERROUS SULFATE 324 MG TABLET PO (07:56)
[2021-10-30] MEDS: ASPIRIN 81 MG ENTERIC TABLET PO (07:56)
[2021-10-30] MEDS: allopurinoL 100 MG TABLET PO (07:57)
[2021-10-30] MEDS: calcitrioL 0.25 MCG CAPSULE PO (07:58)
[2021-10-30] MEDS: carvediloL 25 MG TABLET PO (07:58)
[2021-10-30] MEDS: EMPAGLIFLOZIN 10 MG TABLET PO (07:59)
[2021-10-30] MEDS: ESCITALOPRAM OXALATE 10 MG TABLET PO (07:59)
[2021-10-30] MEDS: ISOSORBIDE MONONITRATE 30 MG TAB.ER.24H PO (07:59)
[2021-10-30] MEDS: ROSUVASTATIN 5 MG TABLET PO (08:00)
[2021-10-30] MEDS: SPIRONOLACTONE 25 MG TABLET PO (08:01)
[2021-10-30] MEDS: SACUBITRIL/VALSARTAN 24-26 MG TABLET 1 TAB PO (08:01)
[2021-10-30 08:10] LABS: Glucose Point of Care 169 mg/dl (65-105)
--- NOTE | 2021-10-30 09:02 | PM.IMPN ---
Progress Note: A&P Assessment and Plan (1) Elevated troponin: Code(s): R77.8 - Other specified abnormalities of plasma proteins Status: Acute Assessment and Plan: Appreciate cardiology consultation, do not suspect acute cardiac injury, troponins trending down (2) Acute on chronic respiratory failure with hypoxia and hypercapnia: Code(s): J96.21 - Acute and chronic respiratory failure with hypoxia; J96.22 - Acute and chronic respiratory failure with hypercapnia Status: Acute Assessment and Plan: Typically wears 2-2.5 L at home, 3.5 L on admission, 3 L today Continue diuresis per Cardiology, improving (3) Acute hypokalemia: Code(s): E87.6 - Hypokalemia Status: Acute Assessment and Plan: Resolved, continue to monitor (4) CKD (chronic kidney disease): Code(s): N18.9 - Chronic kidney disease, unspecified Status: Acute Assessment and Plan: Appears to be at baseline renal function (5) CHF (congestive heart failure): Code(s): I50.9 - Heart failure, unspecified Status: Acute Assessment and Plan: Diuresis per Cardiology Transitioned from losartan to Entresto Potassium supplementation discontinued in favor of aldactone Cont jardiance EF noted to be 20% ICD in place, managed by [facility] (6) COPD (chronic obstructive pulmonary disease): Code(s): J44.9 - Chronic obstructive pulmonary disease, unspecified Status: Acute Assessment and Plan: Appears to be at baseline (7) JESSICA (obstructive sleep apnea): Code(s): G47.33 - Obstructive sleep apnea (adult) (pediatric) Status: Acute Assessment and Plan: Continue CPAP (8) Type 2 diabetes mellitus with hyperglycemia, with long-term current use of insulin: Code(s): E11.65 - Type 2 diabetes mellitus with hyperglycemia; Z79.4 - [facility] (current) use of insulin Status: Acute Assessment and Plan: Controlled, A1c 6.5, continue Accu-Cheks and sliding scale insulin (9) Body mass index [BMI] 45.0-49.9, adult: Onset Date: 04/04/18 Code(s): Z68.42 - Body mass index [BMI] 45.0-49.9, adult Status: Acute (10) Essential hypertension: Code(s): I10 - Essential (primary) hypertension Status: Acute Assessment and Plan: Better controlled with diuresis and Entresto, continue current management Plan Recent admission positive for bedbugs DVT prophylax heparin subQ Code status full code Additional Plan Some concern for PE and the etiology for her hypoxia in the ER, lower extremity Dopplers as well as V/Q scan all ordered. Dopplers were negative, V/Q was indeterminate. Do not suspect PE. Will hold off on full-dose anticoagulation. Subjective Date/time seen: 10/30/21 09:02 Interval history: No overnight events noted. No chest pain or shortness of breath. No nausea, vomiting or diarrhea. No fevers or chills. Review of Systems Review of Systems: 12 point review of systems was assessed and was negative except as noted in the HPI Exam Narrative: General: No acute distress, alert and oriented per baseline HEENT: Atraumatic, normocephalic, mucous membranes moist CV: Regular rate and rhythm, S1, S2 Lungs: Clear to auscultation bilaterally, no rales or crackles noted, no wheezes, good air entry Abdomen: Soft, nontender, nondistended Extremities: Normal to inspection Skin: No rashes noted, no lesions or wounds seen Psych: Euthymic, normal affect Objective Data Vital Signs Vital Signs: Vital Signs - 24 hr 10/29/21 10:00 10/29/21 11:53 10/29/21 12:00 Temperature Pulse Rate 73 73 68 Respiratory Rate 20 Blood Pressure Pulse Oximetry 99 Oxygen Delivery Nasal Cannula Oxygen Flow Rate 3 10/29/21 12:00 10/29/21 13:05 10/29/21 13:10 Temperature 97.6 F Pulse Rate 70 75 92 Respiratory Rate 18 Blood Pressure 136/83 Pulse Oximetry 100 87 L 88 L Oxygen Delivery Room Air Nasal Cannul
[2021-10-30] MEDS: UMECLIDINIUM BROMIDE 62.5 MCG ELLIPTA 2 PUFF INHALATION (09:18)
--- NOTE | 2021-10-30 09:50 | PM.PNCARD ---
Progress Note: A&P Assessment and Plan (1) CHF (congestive heart failure): Code(s): I50.9 - Heart failure, unspecified Status: Acute Assessment and Plan: History of longstanding systolic heart failure. Presents to the hospital with complaints of shortness of breath, swelling, and increasing abdominal girth. She is being diuresed and her medical regimen for her cardiomyopathy is being optimized. She is improving. Will transition her to p.o. furosemide today. Continue GDMT with Entresto, spironolactone, evelin ZHENG hose Low sodium diet CHF counseling OK for discharge home today from a cardiac standpoint. She knows she should follow up with her laboratory helper in 1-2 weeks. (2) Cardiomyopathy: Code(s): I42.9 - Cardiomyopathy, unspecified Status: Acute Assessment and Plan: EF 20% by recent echo. Followed by [facility]. Medical therapy as above. (3) Cardiac defibrillator in place: Code(s): Z95.810 - Presence of automatic (implantable) cardiac defibrillator Status: Acute Assessment and Plan: Managed by [facility]. Subjective Date/time seen: 10/30/21 09:50 Interval history: 51-year-old with CHF, worsening shortness of breath Date of service 10/29/2021: She is doing okay. Feeling better. Swelling has improved abdominal distention is improved. Date of service 10/30/2021: Feeling better this morning. No shortness of breath. Swelling continues to improve. She is eager to go home. Review of Systems Constitutional: Constitutional: Reports fatigue and Reports lethargy Eyes: Eyes: Reports no additional eye complaints ENT: Reports system reviewed and no additional complaints, except as documented Cardiovascular: Cardiovascular: Reports leg edema and Reports dyspnea Respiratory: Respiratory: Reports dyspnea Gastrointestinal: Gastrointestinal: Reports no additional gastrointestinal complaints Musculoskeletal: Musculoskeletal: Reports back pain Neurologic: Reports system reviewed and no additional complaints, except as documented Endocrine: Endocrine: Reports no additional endocrine complaints and Reports fatigue Hematologic/Lymphatic: Hematologic/Lymphatic: Reports no additional hematologic/lymphatic complaints Allergic/Immunologic: Allergic/Immunologic: Reports no additional allergic/immunologic complaints Exam Const: General: comfortable and no acute distress Nutritional Appearance: obese Orientation/consciousness: patient oriented x3 Other: Massively obese black female seated on the bedside chair appears to be comfortable wearing nasal cannula oxygen HENMT: Head: normal to inspection Mouth: Yes moist mucous membranes Eyes: Sclera: sclerae normal Pupils: Equal, round and reactive pupils present Neck: Neck: supple Other: Carotid pulses are normal bilaterally. Very difficult to assess JVD given her body habitus. Resp: Other: Breath sounds are markedly diminished in both lung correa relatively clear but very difficult exam Cardio: Rate: regular rate Rhythm: regular rhythm Other: PMI is not palpable, no obvious murmur. S3 appears to be audible difficult exam GI: Auscultation: normal bowel sounds Skin: General skin exam: normal color Neuro: General: patient oriented x3 Cranial nerves: Yes Equal, round and reactive pupils present Speech: normal speech Other: Alert and oriented normal cognition Extrem: Right lower extremity: edema Left lower extremity: edema Other: Mild bilateral pitting edema Psych: Appearance: grossly normal Mental Status: mental status grossly normal Objective Data Vital Signs Vital Signs: Vital Signs - 24 hr 10/29/21 10:00 10/29/21 11:53 10/29/21 12:00 Temperature Pulse Rate 73 73 68 Respiratory Rate 20 Blood Pressure Pulse Oximetry 99 Oxygen Delivery Nasal Cannula Oxygen Flow Rate 3 10/29/21 12:00 10/29/21 13:05 10/29/21 13:10 Temperature 36.4 C Pulse Rate 70 75 92 R
--- NOTE | 2021-10-30 10:29 | PCPTNOTE ---
Patient refused treatment this session due to bilateral feet pain. RN aware.
--- NOTE | 2021-10-30 10:43 | PM.DS ---
DS: Admitting Diagnosis Discharge Date October 30, 2021 Admitting Diagnosis Acute on chronic respiratory failure with hypoxia and hypercarbia DS: Discharge Diagnosis Discharge Diagnosis (1) Elevated troponin: Code(s): R77.8 - Other specified abnormalities of plasma proteins Status: Acute Assessment and Plan: Appreciate cardiology consultation, do not suspect acute cardiac injury, troponins trending down (2) Acute on chronic respiratory failure with hypoxia and hypercapnia: Code(s): J96.21 - Acute and chronic respiratory failure with hypoxia; J96.22 - Acute and chronic respiratory failure with hypercapnia Status: Acute Assessment and Plan: Typically wears 2-2.5 L at home, 3.5 L on admission, 3 L today Continue diuresis per Cardiology, improving (3) Acute hypokalemia: Code(s): E87.6 - Hypokalemia Status: Acute Assessment and Plan: Resolved, continue to monitor (4) CKD (chronic kidney disease): Code(s): N18.9 - Chronic kidney disease, unspecified Status: Acute Assessment and Plan: Appears to be at baseline renal function (5) CHF (congestive heart failure): Code(s): I50.9 - Heart failure, unspecified Status: Acute Assessment and Plan: Diuresis per Cardiology Transitioned from losartan to Entresto Potassium supplementation discontinued in favor of aldactone Cont jardiance EF noted to be 20% ICD in place, managed by [facility] (6) COPD (chronic obstructive pulmonary disease): Code(s): J44.9 - Chronic obstructive pulmonary disease, unspecified Status: Acute Assessment and Plan: Appears to be at baseline (7) JESSICA (obstructive sleep apnea): Code(s): G47.33 - Obstructive sleep apnea (adult) (pediatric) Status: Acute Assessment and Plan: Continue CPAP (8) Type 2 diabetes mellitus with hyperglycemia, with long-term current use of insulin: Code(s): E11.65 - Type 2 diabetes mellitus with hyperglycemia; Z79.4 - [facility] (current) use of insulin Status: Acute Assessment and Plan: Controlled, A1c 6.5, continue Accu-Cheks and sliding scale insulin (9) Body mass index [BMI] 45.0-49.9, adult: Onset Date: 04/04/18 Code(s): Z68.42 - Body mass index [BMI] 45.0-49.9, adult Status: Acute (10) Essential hypertension: Code(s): I10 - Essential (primary) hypertension Status: Acute Assessment and Plan: Better controlled with diuresis and Entresto, continue current management Plan Recent admission positive for bedbugs DVT prophylax heparin subQ Code status full code DS: Summary Hospital Course Hospital Course: 51-year-old female presenting with acute on chronic respiratory failure requiring 3.5 L of oxygen when she wears 2.5 L at baseline secondary to fluid overload presented in heart failure. Cardiology was consulted and recommended IV diuresis. Dopplers were negative for DVT. V/Q scan was ordered. EF noted to be 20% status post ICD placement. COPD appeared to be unrelated. Patient's symptoms improved with IV diuresis. Cardiology discontinued losartan and added Entresto. They also stopped her potassium supplementation and added Aldactone. After few days of diuresis, transitioning to Entresto, spironolactone and Jardiance, Cardiology recommended oral diuresis and discharge home with close outpatient follow-up by Cardiology. Time Spent with Patient Time attestation: Total time spent providing and/or coordinating discharge services: Exam Narrative: General: No acute distress, alert and oriented per baseline HEENT: Atraumatic, normocephalic, mucous membranes moist CV: Regular rate and rhythm, S1, S2 Lungs: Clear to auscultation bilaterally, diminished at bases Abdomen: Soft, nontender, nondistended Extremities: Normal to inspection, +1 pitting edema B/L Skin: No rashes noted, no lesions or wounds seen Psych: Euthymic, normal affect DS: Data
== END 2021-10-30 12:25 | disposition home health service (06) | DRG 291 ==
LOC: ANHED 16:38 → ANHIMU 17:25
PROVIDERS: Internal Medicine; Nurse Practitioner; Admitting Provider Hospitalist; Emergency Provider Emergency Medicine; PCP Internal Medicine Infectious Disease; Visit Provider Student in an Organized Health Care Education/Training Program
DX: I13.0 Hypertensive heart and chronic kidney disease with heart failure and stage 1 through stage 4 chronic kidney disease, or unspecified chronic kidney disease (principal); J96.21 Acute and chronic respiratory failure with hypoxia; J96.22 Acute and chronic respiratory failure with hypercapnia; I50.23 Acute on chronic systolic (congestive) heart failure; Z68.42 Body mass index [BMI] 45.0-49.9, adult; I42.8 Other cardiomyopathies; I27.20 Pulmonary hypertension, unspecified; J44.9 Chronic obstructive pulmonary disease, unspecified; N18.30 Chronic kidney disease, stage 3 unspecified; E11.22 Type 2 diabetes mellitus with diabetic chronic kidney disease; E87.6 Hypokalemia; E66.01 Morbid (severe) obesity due to excess calories; R77.8 Other specified abnormalities of plasma proteins; G47.33 Obstructive sleep apnea (adult) (pediatric); Z20.822 Contact with and (suspected) exposure to COVID-19; Z99.81 Dependence on supplemental oxygen; Z95.810 Presence of automatic (implantable) cardiac defibrillator; Z90.49 Acquired absence of other specified parts of digestive tract
CPT/HCPCS: 36415; 36600; 71045; 78580; 80048; 80053; 82805; 82948; 83036; 83735; 83880; 84132; 84443; 84484; 85025; 85055; 85610; 85730; 93005; 93970; 94002; 94003; 94618; 94640; 94660; 96365; 96366; 96372; 96374; 96376; 97110; 97161; 97165; 97530; 97535; 99285; A9270; A9540; C9803; G0378; J1644; J1650; J1815; J1940; J3480; J7040; U0003; U0005

== ENCOUNTER 2021-11-26 06:49 | Outpatient (RCR) | payer MEDICARE, MEDICAID, SELFPAY | END 2022-02-11 09:29 | disposition home or self-care (01) | LOC: ANHDMC 06:49 | PROVIDERS: PCP Internal Medicine Infectious Disease; Visit Provider Internal Medicine Infectious Disease | DX: E11.65 Type 2 diabetes mellitus with hyperglycemia (principal) | CPT/HCPCS: 99199 ==

== ENCOUNTER 2022-01-20 11:07 | Inpatient (IN) | payer MEDICARE, MEDICAID, SELFPAY ==
--- NOTE | ~2022-01-20 | XR_ITS ---
EXAMINATION: XR knee LT 3V DATE: 01/21/2022 17:15 INDICATION: Left knee pain. TECHNIQUE: 3 views of left knee were obtained. COMPARISON: None. FINDINGS: Bone alignment is normal. No fracture. There is severe osteoarthritis of patellofemoral com partment and mild osteoarthritis of lateral and medial compartments. No knee joint effusion. There ar e loose bodies in the knee joint posteriorly. IMPRESSION: 1. Severe left knee osteoarthritis with loose bodies. Reviewed, dictated and finalized at location A. OCOMPOSING MACHINE OPERATOR
--- NOTE | ~2022-01-20 | XR_ITS ---
EXAMINATION: XR chest 1V portable DATE: 01/20/2022 11:35 INDICATION: Shortness of breath TECHNIQUE: frontal and lateral views of the chest were obtained. COMPARISON: Chest radiograph dated 10/26/2021 FINDINGS: Thyromegaly with pulmonary vascular congestion but without jeanne pulmonary edema. No focal airspace o pacities, pleural effusion or pneumothorax. Cardiomegaly. Dual lead pacemaker/AICD seen with leads pr ojecting over the expected locations of the right atrium and right ventricle. IMPRESSION: 1. Cardiomegaly with pulmonary vascular congestion but without jeanne pulmonary edema. Reviewed, dictated and finalized at location A. CTOR OF ALUMNI RELATIONS
--- NOTE | ~2022-01-20 | US_ITS ---
EXAMINATION: US renal BI DATE: 01/21/2022 12:26 INDICATION: Acute on chronic kidney disease TECHNIQUE: Multiple ultrasound grayscale images of the kidneys were obtained. COMPARISON: None. FINDINGS: The right kidney measures 10.8 x 6.0 x 6.4 cm. The left kidney measures 11.1 x 5.6 x 6.9 cm. There is mild cortical thinning at both kidneys. The kidneys demonstrate normal echogenicity. There is no hy dronephrosis in either kidney. No stones identified. The bladder is nonvisualized and likely decompr essed.. IMPRESSION: 1. Diffuse mild cortical thinning of both kidneys which appear otherwise normal. No hydronephrosis. Reviewed, dictated and finalized at location A. TER CHASSIS IMPRESSION: 1. Diffuse mild cortical thinning of both kidneys which appear otherwise venita l. No hydronephrosis.
--- NOTE | ~2022-01-20 | CT_ITS ---
EXAMINATION: CT brain wo con INDICATION: Left lower extremity weakness COMPARISON: None TECHNIQUE: Standard unenhanced head CT. The dose-length product (DLP) was 832.33 mGy-cm. The mA was a djusted according to patient size. Iterative reconstruction technique was employed. FINDINGS: There is no acute intraparenchymal hemorrhage. No evidence of mass lesion. No evidence of a cute infarction. There is mild periventricular and subcortical hypodensity probably related to small vessel ischemic disease. There is mild prominence of the sulci and ventricles related to cerebral atr ophy. Intracranial calcified cerebral atherosclerosis is noted. There are no extra-axial collections. There is no mass effect or midline shift. The orbits are unremarkable. There appears to be a small l eft parietal scalp hematoma. There is mild mucosal thickening of the paranasal sinuses. IMPRESSION: 1. No acute intracranial abnormality. 2. Age related findings. Reviewed, dictated and finalized at location B. ERY ATTENDANT
--- NOTE | ~2022-01-20 | US_ITS ---
EXAMINATION: US venous doppler [facility] DATE: 01/21/2022 12:26 INDICATION: Bilateral lower limb edema TECHNIQUE: Gresham scale images without and with compression and Doppler images of the bilateral lower e xtremity veins were obtained. COMPARISON: 10/27/2021 FINDINGS: The right common femoral vein, profunda femoral vein, femoral vein, popliteal vein, peroneal trunk, p osterior tibial veins, and greater saphenous vein are patent. The left common femoral vein, profunda femoral vein, femoral vein, popliteal vein, peroneal trunk, po sterior tibial veins, and greater saphenous vein are patent. IMPRESSION: 1. Patent bilateral lower extremity veins. No evidence of deep venous thrombosis. Reviewed, dictated and finalized at location B. R OPERATOR IMPRESSION: 1. Patent bilateral lower extremity veins. No evidence of deep venous thrombosi s.
[2022-01-20 11:04] VITALS: BP 115/93; PULSE 60; RESP 17; TEMP 36.4; O2SAT 100
--- NOTE | 2022-01-20 11:09 | ECG_ITS ---
Measurements Intervals Drifting Rate: 68 P: 204 ND: 289 QRS: -47 QRSD: 158 T: 104 QT: 491 QTc: 524 Interpretive Statements ELECTRONIC ATRIAL PACEMAKER LEFT AXIS DEVIATION VENTRICULAR COUPLET AND VENTRICULAR PREMATURE COMPLEXES LEFT BUNDLE BRANCH BLOCK BASELINE ARTIFACT- I, II, AVR, AVL, AVF ABNORMAL ECG COMPARED TO ECG 10/26/2021 14:57:17 ELECTRONIC ATRIAL PACEMAKER NOW PRESENT Electronically Signed On 01-20-2022 16:22:50 TECHNICAL SUPPORT ASSISTANT by Horacio Montes De Oca D.O.
[2022-01-20 11:34] LABS: Basophils Percent Auto 0.4 % (0.2-1.2); Eosinophils Absolute Auto 0.1 K/mm3 (0-0.3); Eosinophils Percent Auto 1.1 % (0-4.4); Hemoglobin 13.4 g/dL (12.0-15.0); Immature Granulocyte Absolute 0.02 K/mm3 (0.00-0.031); Immature Granulocyte Percent A 0.4 % (0-0.5); Immature Platelet Fraction Pct 11.9 % (0.9-11.2); Lymphocytes Absolute Auto 0.79 K/mm3 (0.9-3.2); Mean Corpuscular HGB Conc 31.9 g/dl (32-36); Mean Corpuscular Volume 87.7 fl (80-100); Mean Platelet Volume 11.8 fl (7.4-10.4); Monocytes Absolute Auto 0.5 K/mm3 (0.1-0.6); Monocytes Percent Auto 10.5 % (2.6-8.5); Neutrophils Absolute Auto 3.3 K/mm3 (1.3-6.7); Neutrophils Percent Auto 70.6 % (45.5-73.1); Platelet Count Result 151 k/mm3 (150-375); Red Blood Count 4.79 M/mm3 (4.2-5.4); White Blood Count 4.7 K/mm3 (4.5-10.0)
[2022-01-20 11:49] LABS: Alanine Aminotransferase 17 U/L (6-35); Albumin Level 3.8 g/dL (3.5-5.1); Alkaline Phosphatase 29 U/L (38-126); Aspartate Amino Transferase 37 U/L (14-36); Bilirubin,Total 0.9 mg/dL (0.2-1.3); Blood Urea Nitrogen 42 mg/dL (7-17); Calcium 9.3 mg/dL (8.4-10.2); Carbon Dioxide > 40 mmol/L (22-30); Chloride 88 mmol/L (98-107); Estimated Glomerular Filt Rate 22; Glucose 74 mg/dL (65-110); Potassium 2.2 mmol/L (3.4-5.0); Sodium 145 mmol/L (137-145)
--- NOTE | 2022-01-20 12:03 | ED.SOB ---
HPI - SOB/Dyspnea General Chief Complaint: Shortness of Breath/Dyspnea Stated Complaint: SOB, weakness Time Seen by Provider: 01/20/22 12:02 Source: patient and EMS Mode of arrival: EMS Limitations: no limitations History of Present Illness HPI Narrative: 51 years old -[place] female went to his family physician today for regular blood work-up and told the commercial front load driver that she have shortness of breath and multiple falls, ambulance was called and patient arrived by EMT to the ED Patient reports that her nose is stuffed up 1 and half week ago, her significant other have similar symptoms and he got better. Also complaining of shortness of breath on exertion which is worse than usual, currently on chronic oxygen at 2 L by nasal cannula, patient reports that her defibrillator went off at least 4 times in the past few days, also she had multiple falls at home and hit her left head with one of the fall without loss of consciousness. She denies other injuries. Patient is scheduled to see the dialysis doctor Dr. Casillas next week for possible dialysis patient on baby aspirin, does not take anticoagulant medication, history of diabetes, hypertension, hyperlipidemia, COPD and asthma. She denies any fever, chills, nausea, vomiting or chest pain. Related Data Home Medications Medication Instructions Recorded Confirmed allopurinol 100 mg tablet 100 mg PO DAILY 07/15/21 10/26/21 bupropion HCl 300 mg 24 hr tablet, 300 mg PO DAILY 07/15/21 10/26/21 extended release calcitriol 0.25 mcg capsule 0.25 mcg PO DAILY 07/15/21 10/26/21 carvedilol 25 mg tablet 25 mg PO BID 07/15/21 10/26/21 empagliflozin 10 mg tablet 10 mg PO DAILY 07/15/21 10/26/21 (Jardiance) ergocalciferol (vitamin D2) 1,250 50,000 unit PO WEEKLY 07/15/21 10/26/21 mcg (50,000 unit) capsule escitalopram oxalate 20 mg tablet 10 mg PO DAILY 07/15/21 10/26/21 ferrous sulfate 325 mg (65 mg 325 mg PO DAILY 07/15/21 10/26/21 iron) tablet (FeroSul) furosemide 40 mg tablet 40 mg PO BID 07/15/21 10/26/21 isosorbide mononitrate 30 mg 30 mg PO DAILY 07/15/21 10/26/21 tablet,extended release 24 hr ivabradine 5 mg tablet (Corlanor) 5 mg PO BID 07/15/21 10/26/21 quetiapine 400 mg tablet 200 mg PO HS 07/15/21 10/26/21 rosuvastatin 5 mg tablet 5 mg PO DAILY 07/15/21 10/26/21 albuterol sulfate 2 puff BYMOUTH DAILY PRN Shortness 07/16/21 10/26/21 Of Breath umeclidinium 62.5 mcg/actuation 2 inh inhalation DAILY 10/18/21 10/26/21 blister powder for inhalation (Incruse Ellipta) Allergies Allergy/AdvReac Type Severity Reaction Status Date / Time No Known Allergies Allergy Unverified 10/26/21 14:55 Review of Systems Review of Systems: All systems reviewed & are unremarkable except as noted in HPI and below PMFSH Past Medical History Medical History Body mass index [BMI] 45.0-49.9, adult (04/04/18) Cardiac defibrillator in place Cardiac defibrillator in place Chronic kidney disease, stage III (moderate) Congestive heart failure, unspecified COPD (chronic obstructive pulmonary disease) Dependence on supplemental oxygen Essential hypertension JESSICA (obstructive sleep apnea) Pacemaker Type 2 diabetes mellitus with hyperglycemia, with long-term current use of insulin Surgical History Surgical History H/O tubal ligation History of bilateral carpal tunnel release History of laparoscopic cholecystectomy Family History Family History Grandparent Diabetes mellitus Hypertension Sibling Diabetes mellitus Patient's brother is in good health Patient's sister is in good health Asthma Father Patient's father is Mother Patient's mother is Other Family history of malignant neoplasm Social History Social History Soc
[2022-01-20 12:35] LABS: INR 1.3; Prothrombin Time 15.7 Seconds (11.1-14.7)
[2022-01-20 12:36] LABS: Partial Thromboplastin Time 28.8 SECONDS (22.3-36.8)
[2022-01-20] MEDS: POTASSIUM CHLORIDE 20 MEQ PACKET (FOR LIQUID) 40 MEQ PO (12:36)
[2022-01-20 12:46] LABS: NT Pro B Type Natriuretic Pept 6860 pg/mL (5-100)
[2022-01-20 12:53] LABS: Alveolar/Arterial O2 Gradient 35.4 mmHg; Base Excess ABG 17.4 mEq/l (+/-2.0); Fractional Inspired Oxygen 28 %; HCO3 ABG 45.6 mEq/l (22.0-26.0); Oxygen Content ABG 18.5 %vol (16.0-22.0); Oxygen Saturation ABG 95.8 % (95.0-100.0); Oxyhemoglobin 93.5 % THb (90.0-100.0); PO2 ABG 81.3 mmHg (80.0-100.0)
[2022-01-20 12:56] LABS: Device NASAL CANNULA; Modified Allen's Test Pass; PCO2 ABG 70.3 mmHg (35.0-45.0); Site Drawn LEFT RADIAL
[2022-01-20 12:59] LABS: Influenza A QL RT-PCR Negative (Negative); Influenza B QL RT-PCR Negative (Negative); RSV RNA, RT-PCR Negative (Negative); SARS-CoV-2 RNA PCR Negative
[2022-01-20] MEDS: POTASSIUM CHLORIDE INJ 40 MEQ in SODIUM CHLORIDE 0.9% IV 500 ML 130 MEQ IVPB (13:02)
[2022-01-20] MEDS: ASPIRIN 81 MG CHEWABLE TABLET 324 MG PO (13:03)
--- NOTE | 2022-01-20 14:15 | PM.IMHP ---
H&P: HPI History of Present Illness Date/Time: 01/20/22 14:15 Chief Complaint: Shortness of breath. Narrative: This is a 51-year-old female with nonischemic cardiomyopathy with a an ejection fraction of around 20% status post ICD insertion, chronic kidney disease, hypertension, type 2 diabetes mellitus, obstructive sleep apnea, and chronic obstructive pulmonary disease who presented to the emergency department via EMS for evaluation of shortness of breath. She has not been feeling well for almost a week with increasing shortness of breath on lesser and lesser exertion, orthopnea, increasing lower extremity edema, and generalized weakness. Several days ago she was sitting on the couch and started to feel very lightheaded and my vision went dark prior to a brief loss of consciousness. She has had 3 other similar episodes since last and she has had a couple of falls with the symptoms and she believes she may have lost consciousness each time. Luckily she sustained no injuries in those falls. With further questioning she does mention that her gait has been off for the last week, specifically her left leg feels heavy which she believes may be due to the edema. she has not had stroke symptoms and specifically denies vertigo, auditory and visual changes, facial droop, dysarthria, dysphagia, numbness, and paresthesias. Last evening at around 18:30 she reports that her defibrillator fired when she was coming to after another episode where she was lightheaded and thus she went to see her doctor today where she was immediately sent to the ED for evaluation. Workup today showed a potassium of 2.2, troponin of 1.5, and her EKG showed a left bundle branch block. She is being admitted in this setting for close monitoring, potassium replacement, and Cardiology consultation. Review of Systems Review of Systems: Twelve systems were reviewed and are negative except for as per HPI. [facility] Past Medical History Medical History (Updated 01/20/22 @ 22:24 by Shey Nguyen PA-C) Chronic kidney disease, stage III (moderate) Chronic obstructive lung disease Chronic respiratory failure with hypoxia and hypercapnia Essential hypertension Heart failure with reduced ejection fraction Morbid obesity Nonischemic cardiomyopathy Obstructive sleep apnea Type 2 diabetes mellitus Surgical History Surgical History (Updated 01/20/22 @ 22:17 by Shey Nguyen PA-C) History of bilateral carpal tunnel release History of cardiac defibrillator placement History of laparoscopic cholecystectomy History of permanent cardiac pacemaker placement History of tubal ligation Family History Family History Grandparent Diabetes mellitus Hypertension Sibling Diabetes mellitus Patient's brother is in good health Patient's sister is in good health Asthma Father Patient's father is Mother Patient's mother is Other Family history of malignant neoplasm Social History Social History (Updated 01/20/22 @ 22:18 by Shey Nguyen PA-C) Social History: The patient lives in [place] and her significant other stays with her. She has 2 biological and many foster children that she has raised. She is a lifelong nonsmoker. She denies using any alcohol marijuana. She does not have a durable power patent attorney for healthcare. She designates her daughter, Juan Pablo Walker, as her surrogate decision maker and she wishes to be a full code. Lack of Transportation: YES Lack of Food: Never True Current Housing: I Have Housing Concerned About Future Housing: No Difficulty Paying Gas/Electric Bills: No Difficulty Paying for Meds: YES Currently Unemployed: No Education: Associate Degree Difficulty w/ Childcare or Family Care: No Spiritual care concerns: Yes Meds Home Medications and Allergies Home Medications Medication Instruct
[2022-01-20 14:47] LABS: Appearance Urine Clear (Clear); Bilirubin Urine Negative (Negative); Blood Urine Trace-lysed (Negative); Color Urine Yellow (Yellow); Glucose Urine UA Trace mg/dL (Negative); Ketones Urine Negative (Negative); Leukocyte Esterase Ur Negative LEU/UL (Negative); Nitrate Urine Negative (Negative); Protein Urine 1+ mg/dL (Negative); Urobilinogen Urine 0.2 mg/dL (<2.0)
[2022-01-20 14:50] VITALS: BP 118/79; PULSE 53; RESP 18; O2SAT 98
[2022-01-20 14:57] LABS: Mucus Urine Rare /lpf; RBC Urine 0-2 /hpf (0-2); Squamous Epithelial Cell Urine Moderate /hpf (Few); WBC Urine 0-3 /hpf
[2022-01-20 15:10] LABS: Add Urine Microscopic? YES
--- NOTE | 2022-01-20 15:39 | PM.CNCAR ---
Assessment and Plan Assessment and plan (1) Acute hypokalemia: Code(s): E87.6 - Hypokalemia Status: Acute Assessment and Plan: K of 2.2 on admission. Replete to K >4. Would closely monitor electrolyes. (2) Defibrillator discharge: Code(s): Z45.02 - Encounter for adjustment and management of automatic implantable cardiac defibrillator Status: Acute Assessment and Plan: Order for device interrogation placed. Further recommendations pending review of interrogation. (3) Elevated troponin: Code(s): R77.8 - Other specified abnormalities of plasma proteins Status: Acute Assessment and Plan: Due to defibrillator shock. No s/s consistent with ACS at this time. (4) Cardiomyopathy: Code(s): I42.9 - Cardiomyopathy, unspecified Status: Acute Assessment and Plan: Known LVEF 20%, long standing history of cardiomyopathy. Patient has signs of volume overload on exam, but would be very cautious in diuresing due to hypokalemia. Continue home Entresto, Aldactone, Coreg, Jardiance, Corlanor History of Present Illness History of Present Illness Consult date/time: 01/20/22 15:39 Requesting physician: Bernabe Moe MD Consult reason: Other (Defibrillator shock) Reason For Visit: Chest Pain,Elevated Troponin,CKD,Hypokalemia,Defib Narrative: We are being consulted for ICD shocks. Patient has a known history of HFrEF with LVEF 20% with a [employer] ICD. Follows with Dr. Vo from the [facility]. Patient states she felt an ICD shock last night at 6:30PM. Didn't feel any more shocks after that, but states she was called by her device rep who told her that she had a total of 4 shocks. Patient denies chest pain otherwise. Reports some shortness of breath, lower extremity edema. Patient is on chronic oxygen at home. Wears 2Ls during the day and at night. Always sleeps in an incline position. Patient has been having gait issues lately as well. ED evaluation showed K of 2.2 Troponin elevated at 1.5 EKG shows LBBB. Review of Systems Review of Systems: 12-point ROS obtained. Negative, unless stated in HPI. [facility] Past Medical History Medical History Body mass index [BMI] 45.0-49.9, adult (04/04/18) Cardiac defibrillator in place Cardiac defibrillator in place Chronic kidney disease, stage III (moderate) Congestive heart failure, unspecified COPD (chronic obstructive pulmonary disease) Dependence on supplemental oxygen Essential hypertension JESSICA (obstructive sleep apnea) Pacemaker Type 2 diabetes mellitus with hyperglycemia, with long-term current use of insulin Surgical History Surgical History H/O tubal ligation History of bilateral carpal tunnel release History of laparoscopic cholecystectomy Family History Family History Grandparent Diabetes mellitus Hypertension Sibling Diabetes mellitus Patient's brother is in good health Patient's sister is in good health Asthma Father Patient's father is Mother Patient's mother is Other Family history of malignant neoplasm Social History Social History Social History: The patient is single and has 2 biological and many foster children that she has raised. She is a lifelong nonsmoker. She denies using any alcohol marijuana. She does not have a durable power hearing aid specialist for healthcare. Code status full code Smoking status: Never smoker Alcohol intake: never Substance use: never Substance use type: does not use Spiritual care concerns: No Meds Home Medications and Allergies Home Medications Medication Instructions Recorded Confirmed Type allopurinol 100 mg tablet 100 mg PO DAILY 07/15/21 10/26/21 History bup
[2022-01-20 15:48] VITALS: BP 133/96; PULSE 87; RESP 16; TEMP 36.9; O2SAT 98
[2022-01-20 16:00] VITALS: O2SAT 99
[2022-01-20 16:03] VITALS: BMI 50.8
[2022-01-20] MEDS: POTASSIUM CHLORIDE 20 MEQ PACKET (FOR LIQUID) PO (17:30)
[2022-01-20 20:00] VITALS: BP 146/75; PULSE 60; PULSE 64; RESP 22; TEMP 36.7; O2SAT 100; O2SAT 99
[2022-01-20 22:00] VITALS: PULSE 60
[2022-01-20] MEDS: QUEtiapine FUMARATE 100 MG TABLET 200 MG PO (22:59)
[2022-01-20 23:15] LABS: Anion Gap 13 mmol/L (8-16); Blood Urea Nitrogen 42 mg/dL (7-17); Carbon Dioxide 33 mmol/L (22-30); Chloride 93 mmol/L (98-107); Estimated CRCL calculation 30 ml/min; Estimated Glomerular Filt Rate 23; Glucose 202 mg/dL (65-110); Magnesium 2.9 mg/dL (1.6-2.3); Sodium 139 mmol/L (137-145)
[2022-01-21] VITALS (16 sets, daily range): BP systolic 120–162; BP diastolic 47–96; PULSE 57–69; RESP 18–24; TEMP 35.8–36.7; O2SAT 95–100
[2022-01-21] LABS: Hemoglobin A1C 5.6 % (<5.7)
[2022-01-21] MEDS: POTASSIUM CHLORIDE 20 MEQ TABLET 40 MEQ PO ×2 (00:25→21:46)
[2022-01-21] MEDS: carvediloL 25 MG TABLET PO ×3 (00:26→16:10)
[2022-01-21 05:41] LABS: Blood Urea Nitrogen 42 mg/dL (7-17); Calcium 9.1 mg/dL (8.4-10.2); Carbon Dioxide > 40 mmol/L (22-30); Chloride 90 mmol/L (98-107); Estimated CRCL calculation 31 ml/min; Estimated Glomerular Filt Rate 23; Glucose 162 mg/dL (65-110); Magnesium 2.3 mg/dL (1.6-2.3); Potassium 2.6 mmol/L (3.4-5.0); Sodium 142 mmol/L (137-145)
--- NOTE | 2022-01-21 06:00 | ECG_ITS ---
Measurements Intervals [place]berg Rate: 61 P: 248 MS: 238 QRS: -34 QRSD: 145 T: 149 QT: 489 QTc: 496 Interpretive Statements ELECTRONIC ATRIAL PACEMAKER ELECTRONIC VENTRICULAR PACEMAKER WITH INHIBITIONSI VENTRICULAR BIGEMINY ABNORMAL ECG COMPARED TO ECG 01/20/2022 11:11:31 VENTRICULAR BIGEMINY NOW PRESENT Electronically Signed On 01-21-2022 10:49:00 OUTREACH TEAM MEMBER by Horacio Montes De Oca D.O.
[2022-01-21] MEDS: POTASSIUM CHLORIDE INJ 40 MEQ in SODIUM CHLORIDE 0.9% IV 500 ML 130 MEQ IVPB (07:50)
[2022-01-21] MEDS: buPROPion HCL XL (24 HR) 150 MG TABCR 300 MG PO (08:23)
[2022-01-21] MEDS: allopurinoL 100 MG TABLET PO (08:24)
[2022-01-21] MEDS: ASPIRIN 81 MG ENTERIC TABLET PO (08:24)
[2022-01-21] MEDS: FUROSEMIDE 40 MG TABLET PO ×2 (08:24→16:10)
[2022-01-21] MEDS: ISOSORBIDE MONONITRATE 30 MG TAB.ER.24H PO (08:24)
[2022-01-21] MEDS: ESCITALOPRAM OXALATE 10 MG TABLET PO (08:25)
[2022-01-21] MEDS: calcitrioL 0.25 MCG CAPSULE PO (08:25)
[2022-01-21] MEDS: FERROUS SULFATE 324 MG TABLET PO (08:25)
[2022-01-21] MEDS: ROSUVASTATIN 5 MG TABLET PO (08:25)
[2022-01-21] MEDS: EMPAGLIFLOZIN 10 MG TABLET PO (08:25)
[2022-01-21] MEDS: POTASSIUM CHLORIDE 20 MEQ PACKET (FOR LIQUID) PO ×2 (08:29→16:10)
[2022-01-21 08:39] LABS: Glucose Point of Care 149 mg/dl (65-105)
[2022-01-21] MEDS: UMECLIDINIUM BROMIDE 62.5 MCG ELLIPTA 2 PUFF INHALATION (08:41)
[2022-01-21] MEDS: HEPARIN SODIUM 5,000 UNITS/ML VIAL 5000 UNITS SUB-Q ×2 (09:43→21:46)
--- NOTE | 2022-01-21 11:20 | PM.IMPN ---
Progress Note: A&P Assessment and Plan (1) Defibrillator discharge: Code(s): Z45.02 - Encounter for adjustment and management of automatic implantable cardiac defibrillator Status: Acute (2) Elevated troponin: Code(s): R77.8 - Other specified abnormalities of plasma proteins Status: Acute (3) Syncope: Code(s): R55 - Syncope and collapse Status: Acute (4) Hypokalemia: Code(s): E87.6 - Hypokalemia Status: Acute (5) Cardiomyopathy: Code(s): I42.9 - Cardiomyopathy, unspecified Status: Acute (6) Heart failure with reduced ejection fraction: Code(s): I50.20 - Unspecified systolic (congestive) heart failure Status: Acute (7) Left leg weakness: Code(s): R29.898 - Other symptoms and signs involving the musculoskeletal system Status: Acute (8) Chronic respiratory failure with hypoxia and hypercapnia: Code(s): J96.11 - Chronic respiratory failure with hypoxia; J96.12 - Chronic respiratory failure with hypercapnia Status: Acute (9) Chronic kidney disease: Code(s): N18.9 - Chronic kidney disease, unspecified Status: Acute (10) Type 2 diabetes mellitus: Code(s): E11.9 - Type 2 diabetes mellitus without complications Status: Acute (11) Chronic obstructive lung disease: Code(s): J44.9 - Chronic obstructive pulmonary disease, unspecified Status: Acute Plan 01/20/22 The patient presented to the emergency department today for evaluation of increasing shortness of breath, orthopnea, and edema. Upon further questioning it has come to light that she has had for near syncopal or syncopal episodes in the last 1 week and last evening she reports that her defibrillator fired. The device will be interrogated and she is being admitted for close monitoring on telemetry tonight. Potassium on admission was 2.2 and her potassium will be replaced aggressively with close monitoring. Troponin was elevated but has remained flat, likely related to defibrillator shock. She has not had any chest pain whatsoever. At this time she does not look significantly volume overloaded however given her increasing shortness of breath, orthopnea, and some congestion on chest x-ray she may benefit from diuresis however will hold on that until her potassium is closer to for. Fall precautions will be initiated. We will monitor orthostatic vital signs. Creatinine is up from baseline and we will need to monitor this closely while cautiously diuresing. Renal ultrasound has been ordered for a.m. Monitor strict I/O. Regarding the left leg weakness, brain CT has been ordered and we may consider brain MRI as well. PT/ OT has been consulted. No evidence on exam today to suggest COPD exacerbation. Continue basal insulin. Initiate sliding scale insulin, Accu-Cheks, and hypoglycemic protocol. The rest of her home medications will be reviewed and resumed as appropriate. 01/21/22 Suspect patient has 2 issues resulting her falls. The 1st issue is with left leg weakness possibly related to her knee. This appears to be more mechanical. Will check left knee x-ray. Start therapy. The 2nd issue appears to be related to possibly cardiac dysrhythmia causing syncope/presyncope. Device interrogation has been ordered. Potassium remains low and this is being replaced. Will repeat potassium level later today and continue to replace as needed. Magnesium level normal. Continue oral replacement. Continue Lasix, Jardiance, Coreg. Corlanor on hold (nonfomrulary). Appreciate Nephorology and Cardiology input. Subjective Date/time seen: 01/21/22 11:20 Interval history: 81yo female with CHF, COPD, chronic respiratory failure, DM and CMP with PM/ICD in place here for falls, syncope and ICD firing. Assuming care. Chart reviewed. Patient states that she is having issues with falls when she mostly going up and down steps. She states her left leg (knees) gives out. She denie
[2022-01-21 11:22] LABS: Glucose Point of Care 172 mg/dl (65-105)
--- NOTE | 2022-01-21 11:23 | PM.PNCARD ---
Progress Note: A&P Assessment and Plan (1) Defibrillator discharge: Code(s): Z45.02 - Encounter for adjustment and management of automatic implantable cardiac defibrillator Status: Acute (2) Hypokalemia: Code(s): E87.6 - Hypokalemia Status: Acute (3) Heart failure with reduced ejection fraction: Code(s): I50.20 - Unspecified systolic (congestive) heart failure Status: Acute (4) Nonischemic cardiomyopathy: Code(s): I42.8 - Other cardiomyopathies Status: Acute Plan ICD interrogation shows that patient received ATP x 3 with 1 shock on 01/19 for VT. VT likely due to significant hypokalemia of 2.2 on presentation. Unclear reason for significant hypokalemia, patient states that she has not taken extra lasix doses. Continue repleting K until K is > 4. Continue to closely monitor potassium levels. For her heart failure GDMT, continue home Entresto, Aldactone, Coreg, Jardiance, Corlanor Time Spent With Patient Time with patient: 15 - 25 minutes Subjective Date/time seen: 01/21/22 11:23 Interval history: Reason for visit: ICD shock No acute events overnight. Has some PVCs on telemetry. K improved to 3 yesterday evening, but back down to 2.6. ICD interrogation shows that patient got 1 shock on 01/19 for VT. She did get ATP therapy x 3. Review of Systems Review of Systems: 8-point ROS obtained. Negative, unless stated in HPI. Exam Const: General: comfortable and no acute distress Other: Morbidly obese HENMT: Mouth: Yes moist mucous membranes Eyes: General: appearance normal, both eyes and all related structures Neck: Neck: supple Other: Difficult to ascern JVD due to body habitus. Resp: Effort & Inspection: normal respiratory effort Auscultation: diminished lung sounds Other: On supplemental oxygen via NC. Cardio: Rate: regular rate Rhythm: regular rhythm Heart sounds: no murmurs GI: Other: Obese abdomen. Skin: General skin exam: normal color Neuro: Speech: normal speech Extrem: General: edema Psych: Mental Status: mental status grossly normal Objective Data Vital Signs Vital Signs: Vital Signs - 24 hr 01/20/22 14:50 01/20/22 15:48 01/20/22 16:00 Temperature 36.9 C Pulse Rate 53 L 87 Respiratory Rate 18 16 Blood Pressure 118/79 133/96 H Pulse Oximetry 98 98 99 Oxygen Delivery Nasal Cannula Oxygen Flow Rate 2 01/20/22 20:00 01/20/22 20:00 01/20/22 20:00 Temperature 36.7 C Pulse Rate 60 64 Respiratory Rate 22 H Blood Pressure 146/75 H Pulse Oximetry 99 100 Oxygen Delivery Nasal Cannula Oxygen Flow Rate 2 01/20/22 22:00 01/21/22 00:00 01/21/22 00:26 Temperature 36.6 C Pulse Rate 60 67 62 Respiratory Rate 18 Blood Pressure 120/47 L Pulse Oximetry 100 Oxygen Delivery Oxygen Flow Rate 01/21/22 00:00 01/21/22 00:00 01/21/22 02:00 Temperature Pulse Rate 62 62 Respiratory Rate Blood Pressure Pulse Oximetry 100 Oxygen Delivery Nasal Cannula Oxygen Flow Rate 2 01/21/22 04:00 01/21/22 04:00 01/21/22 04:00 Temperature 36.7 C Pulse Rate 58 L 63 Respiratory Rate 20 Blood Pressure 137/96 H Pulse Oximetry 95 95 Oxygen Delivery Nasal Cannula Oxygen Flow Rate 2 01/21/22 06:00 01/21/22 08:24 01/21/22 08:42 Temperature Pulse Rate 69 66 Respiratory Rate Blood Pressure Pulse Oximetry 96 Oxygen Delivery Nasal Cannula Oxygen Flow Rate 3 01/21/22 08:00 01/21/22 08:00 01/21/22 08:00 Temperature 36.6 C Pulse Rate 57 L 60 Respiratory Rate 24 H Blood Pressure 128/83 Pulse Oximetry 100 95 Oxygen Delivery Nasal Cannula Oxygen Flow Rate 2 01/21/22 10:00 Temperature Pulse Rate 64 Respiratory Rate Blood Pressure Pulse Oximetry Oxygen Delivery Oxygen Flow Rate Intake/Output Intake/Output: Intake & Output 01/18/22 01/19/22 01/20/22 01/21/22 23:59 23:59 23:59 23:59 Intake Total 660 700 Output Total
--- NOTE | 2022-01-21 13:11 | P.CONNP_ITS ---
Assessment and Plan Assessment and plan (1) BRAULIO (acute kidney injury): Code(s): N17.9 - Acute kidney failure, unspecified Status: Acute Assessment and Plan: * creatinine higher than creatinine on last hospitalization/discharge * possibly due to issues with near syncope/syncope in the context of her known cardiomyopathy * overdiuresis (but evidence of volume overload at this time) * random fluctuations in baseline kidney function * follow-up on renal ultrasound * follow trend of repeat labs and UOP (2) CKD (chronic kidney disease): Code(s): N18.9 - Chronic kidney disease, unspecified Status: Chronic Assessment and Plan: * follows with Dr. Jesus Alberto Casillas for management of her chronic kidney disease * baseline seems to run 1.9 - 2.5mg/dl * due to CHF, diuretics, HTN, diabetes and vascular disease * however, given her known CHF, needs for diuretics, and possible cardiorenal syndrome, suspect renal function fluctuates to extremes in general * follow trend of renal function with diuresis (3) Hypokalemia: Code(s): E87.6 - Hypokalemia Status: Acute Assessment and Plan: * due to total body stores depletion(?) * cautious replacement * magnesium okay * follow trend (4) Syncope: Code(s): R55 - Syncope and collapse Status: Acute Assessment and Plan: * apparently present for the last week * complicated by #5 * other possible precipitation factors - low K+, questionable dysrhythmia and leg weakness * PT/OT when more stable (5) Defibrillator discharge: Code(s): Z45.02 - Encounter for adjustment and management of automatic implantable cardiac defibrillator Status: Acute Assessment and Plan: * Cardiology following * device interrogation ordered (6) Cardiomyopathy: Code(s): I42.9 - Cardiomyopathy, unspecified Status: Chronic Assessment and Plan: * last known EF around 20% * careful diuresis given #3 * remains medical management (Entresto, Aldactone, Coreg, Jardiance) (7) Type 2 diabetes mellitus: Code(s): E11.9 - Type 2 diabetes mellitus without complications Status: Chronic Assessment and Plan: * follow accuchecks * glycemic control Will continue to follow. History of Present Illness Reason for Consult Consult date: 01/21/22 Reason for consult: acute renal failure (on chronic kidney disease) Chief Complaint Chief complaint: Chest Pain,Elevated Troponin,CKD,Hypokalemia,Defib History of Present Illness Narrative: The patient is a 51-year-old female with extensive past medical history as outlined below who presented to [facility] Emergency room for further evaluation of shortness of breath. The patient reports that she has been having issues and problems with shortness of breath for the last week if not longer in association with any type of exertional activity as well as orthopnea, increased lower extremity edema gamma and generalized weakness. Further complicating matters is has she reports that a few days ago prior to admission she had an episode where she blacked out seemingly consistent with possibly near syncope or syncopal episode. She appar ently has had three other episodes similar to this in association with a fall. On the evening prior to admission, she reports that her did defibrillator fired around the same time that she had another episode of lightheadedness. She apparently went to see her physician on the day of admission who promptly directed her to the ER g
--- NOTE | 2022-01-21 13:11 | PM.CNNEP ---
Assessment and Plan Assessment and plan (1) BRAULIO (acute kidney injury): Code(s): N17.9 - Acute kidney failure, unspecified Status: Acute Assessment and Plan: creatinine higher than creatinine on last hospitalization/discharge possibly due to issues with near syncope/syncope in the context of her known cardiomyopathy overdiuresis (but evidence of volume overload at this time) random fluctuations in baseline kidney function follow-up on renal ultrasound follow trend of repeat labs and UOP (2) CKD (chronic kidney disease): Code(s): N18.9 - Chronic kidney disease, unspecified Status: Chronic Assessment and Plan: follows with Dr. Jesus Alberto Casillas for management of her chronic kidney disease baseline seems to run 1.9 - 2.5mg/dl due to CHF, diuretics, HTN, diabetes and vascular disease however, given her known CHF, needs for diuretics, and possible cardiorenal syndrome, suspect renal function fluctuates to extremes in general follow trend of renal function with diuresis (3) Hypokalemia: Code(s): E87.6 - Hypokalemia Status: Acute Assessment and Plan: due to total body stores depletion(?) cautious replacement magnesium okay follow trend (4) Syncope: Code(s): R55 - Syncope and collapse Status: Acute Assessment and Plan: apparently present for the last week complicated by #5 other possible precipitation factors - low K+, questionable dysrhythmia and leg weakness PT/OT when more stable (5) Defibrillator discharge: Code(s): Z45.02 - Encounter for adjustment and management of automatic implantable cardiac defibrillator Status: Acute Assessment and Plan: Cardiology following device interrogation ordered (6) Cardiomyopathy: Code(s): I42.9 - Cardiomyopathy, unspecified Status: Chronic Assessment and Plan: last known EF around 20% careful diuresis given #3 remains medical management (Entresto, Aldactone, Coreg, Jardiance) (7) Type 2 diabetes mellitus: Code(s): E11.9 - Type 2 diabetes mellitus without complications Status: Chronic Assessment and Plan: follow accuchecks glycemic control Will continue to follow. History of Present Illness Reason for Consult Consult date: 01/21/22 Reason for consult: acute renal failure (on chronic kidney disease) Chief Complaint Chief complaint: Chest Pain,Elevated Troponin,CKD,Hypokalemia,Defib History of Present Illness Narrative: The patient is a 51-year-old female with extensive past medical history as outlined below who presented to [facility] Emergency room for further evaluation of shortness of breath. The patient reports that she has been having issues and problems with shortness of breath for the last week if not longer in association with any type of exertional activity as well as orthopnea, increased lower extremity edema gamma and generalized weakness. Further complicating matters is has she reports that a few days ago prior to admission she had an episode where she blacked out seemingly consistent with possibly near syncope or syncopal episode. She apparently has had three other episodes similar to this in association with a fall. On the evening prior to admission, she reports that her did defibrillator fired around the same time that she had another episode of lightheadedness. She apparently went to see her physician on the day of admission who promptly directed her to the ER given these constellation of symptoms. Workup and evaluation in the emergency room demonstrated the patient be hemodynamically stable but routine blood work demonstrated her BUN and creatinine to be somewhat higher than baseline in association with significant hypokalemia with a potassium of 2.2. Given her complex medical history as noted in conjunction with the symptoms that led to her presentation to the emergency room, s
[2022-01-21 15:13] LABS: Potassium 3.3 mmol/L (3.4-5.0)
[2022-01-21] MEDS: INSULIN ASPART (*BKC) 100 UNITS/ML SUB-Q (17:56)
[2022-01-21 17:57] LABS: Glucose Point of Care 228 mg/dl (65-105)
[2022-01-21 20:49] LABS: Glucose Point of Care 280 mg/dl (65-105)
[2022-01-21] MEDS: QUEtiapine FUMARATE 100 MG TABLET 200 MG PO (21:46)
[2022-01-21] MEDS: INSULIN DETEMIR 100 UNITS/ML 8 UNITS SUB-Q (21:46)
[2022-01-22] VITALS (22 sets, daily range): BP systolic 101–149; BP diastolic 56–114; PULSE 58–75; RESP 18–20; TEMP 36–36.9; O2SAT 97–100
[2022-01-22 05:01] LABS: Albumin Level 3.9 g/dL (3.5-5.1); Blood Urea Nitrogen 41 mg/dL (7-17); Calcium 9.2 mg/dL (8.4-10.2); Carbon Dioxide > 40 mmol/L (22-30); Chloride 91 mmol/L (98-107); Estimated CRCL calculation 31 ml/min; Estimated Glomerular Filt Rate 23; Glucose 171 mg/dL (65-110); Magnesium 2.2 mg/dL (1.6-2.3); Phosphorus 3.5 mg/dL (2.5-4.5); Potassium 3.1 mmol/L (3.4-5.0); Sodium 142 mmol/L (137-145)
[2022-01-22] MEDS: HEPARIN SODIUM 5,000 UNITS/ML VIAL 5000 UNITS SUB-Q ×2 (08:06→21:51)
[2022-01-22] MEDS: ROSUVASTATIN 5 MG TABLET PO (08:06)
[2022-01-22] MEDS: allopurinoL 100 MG TABLET PO (08:06)
[2022-01-22] MEDS: ISOSORBIDE MONONITRATE 30 MG TAB.ER.24H PO (08:06)
[2022-01-22] MEDS: EMPAGLIFLOZIN 10 MG TABLET PO (08:06)
[2022-01-22] MEDS: calcitrioL 0.25 MCG CAPSULE PO (08:06)
[2022-01-22] MEDS: carvediloL 25 MG TABLET PO ×2 (08:07→16:08)
[2022-01-22] MEDS: FERROUS SULFATE 324 MG TABLET PO (08:07)
[2022-01-22] MEDS: buPROPion HCL XL (24 HR) 150 MG TABCR 300 MG PO (08:07)
[2022-01-22] MEDS: POTASSIUM CHLORIDE 20 MEQ PACKET (FOR LIQUID) PO ×2 (08:07→16:08)
[2022-01-22] MEDS: ESCITALOPRAM OXALATE 10 MG TABLET PO (08:07)
[2022-01-22] MEDS: ASPIRIN 81 MG ENTERIC TABLET PO (08:07)
[2022-01-22] MEDS: FUROSEMIDE 40 MG TABLET PO ×2 (08:07→16:08)
[2022-01-22] MEDS: UMECLIDINIUM BROMIDE 62.5 MCG ELLIPTA 2 PUFF INHALATION (08:51)
--- NOTE | 2022-01-22 10:12 | PM.IMPN ---
Progress Note: A&P Assessment and Plan (1) Defibrillator discharge: Code(s): Z45.02 - Encounter for adjustment and management of automatic implantable cardiac defibrillator Status: Acute (2) Syncope: Code(s): R55 - Syncope and collapse Status: Acute (3) BRAULIO (acute kidney injury): Code(s): N17.9 - Acute kidney failure, unspecified Status: Acute (4) Elevated troponin: Code(s): R77.8 - Other specified abnormalities of plasma proteins Status: Acute (5) Hypokalemia: Code(s): E87.6 - Hypokalemia Status: Acute (6) Cardiomyopathy: Code(s): I42.9 - Cardiomyopathy, unspecified Status: Chronic (7) Heart failure with reduced ejection fraction: Code(s): I50.20 - Unspecified systolic (congestive) heart failure Status: Acute (8) Left leg weakness: Code(s): R29.898 - Other symptoms and signs involving the musculoskeletal system Status: Acute (9) Chronic respiratory failure with hypoxia and hypercapnia: Code(s): J96.11 - Chronic respiratory failure with hypoxia; J96.12 - Chronic respiratory failure with hypercapnia Status: Acute (10) Chronic kidney disease: Code(s): N18.9 - Chronic kidney disease, unspecified Status: Acute (11) Type 2 diabetes mellitus: Code(s): E11.9 - Type 2 diabetes mellitus without complications Status: Chronic (12) Chronic obstructive lung disease: Code(s): J44.9 - Chronic obstructive pulmonary disease, unspecified Status: Acute Plan 01/20/22 The patient presented to the emergency department today for evaluation of increasing shortness of breath, orthopnea, and edema. Upon further questioning it has come to light that she has had for near syncopal or syncopal episodes in the last 1 week and last evening she reports that her defibrillator fired. The device will be interrogated and she is being admitted for close monitoring on telemetry tonight. Potassium on admission was 2.2 and her potassium will be replaced aggressively with close monitoring. Troponin was elevated but has remained flat, likely related to defibrillator shock. She has not had any chest pain whatsoever. At this time she does not look significantly volume overloaded however given her increasing shortness of breath, orthopnea, and some congestion on chest x-ray she may benefit from diuresis however will hold on that until her potassium is closer to for. Fall precautions will be initiated. We will monitor orthostatic vital signs. Creatinine is up from baseline and we will need to monitor this closely while cautiously diuresing. Renal ultrasound has been ordered for a.m. Monitor strict I/O. Regarding the left leg weakness, brain CT has been ordered and we may consider brain MRI as well. PT/ OT has been consulted. No evidence on exam today to suggest COPD exacerbation. Continue basal insulin. Initiate sliding scale insulin, Accu-Cheks, and hypoglycemic protocol. The rest of her home medications will be reviewed and resumed as appropriate. 01/21/22 Suspect patient has 2 issues resulting her falls. The 1st issue is with left leg weakness possibly related to her knee. This appears to be more mechanical. Will check left knee x-ray. Start therapy. The 2nd issue appears to be related to possibly cardiac dysrhythmia causing syncope/presyncope. Device interrogation has been ordered. Potassium remains low and this is being replaced. Will repeat potassium level later today and continue to replace as needed. Magnesium level normal. Continue oral replacement. Continue Lasix, Jardiance, Coreg. Corlanor on hold (nonfomrulary). Appreciate Nephorology and Cardiology input. 01/22/22 Syncope/presyncope caused by tachyarrhythmias and VTach. Elevated Trop related to ICD firing. [place] VTach likely related to the severe hypokalemia. Potassium better but still low. Continue to replace orally. Mag level >2.0. Also having falls mostly going up/do
[2022-01-22] MEDS: POTASSIUM CHLORIDE 20 MEQ PACKET (FOR LIQUID) 40 MEQ PO (11:09)
[2022-01-22] MEDS: EUCERIN CREAM 120 GM JAR 1 APPLIC TOPICAL (11:10)
--- NOTE | 2022-01-22 11:19 | PM.PNCARD ---
Progress Note: A&P Assessment and Plan (1) Defibrillator discharge: Code(s): Z45.02 - Encounter for adjustment and management of automatic implantable cardiac defibrillator Status: Acute (2) Hypokalemia: Code(s): E87.6 - Hypokalemia Status: Acute (3) Heart failure with reduced ejection fraction: Code(s): I50.20 - Unspecified systolic (congestive) heart failure Status: Acute (4) Nonischemic cardiomyopathy: Code(s): I42.8 - Other cardiomyopathies Status: Acute Plan ICD interrogation shows that patient received ATP x 3 with 1 shock on 01/19 for VT. VT likely due to significant hypokalemia of 2.2 on presentation. Unclear reason for significant hypokalemia, patient states that she has not taken extra lasix doses. Continue repleting K until K is > 4. Continue to closely monitor potassium levels. Continue to monitor on telemetry. For her heart failure GDMT, continue home Coreg, Jardiance. Corlanor not on formulary. Would restart Entresto and Aldactone when renal function allows. Patient has some volume overload, however, given she still has hypokalemia with potassium of 3, would avoid aggressive diuresis for now. Time Spent With Patient Time with patient: 15 - 25 minutes Subjective Date/time seen: 01/22/22 11:19 Interval history: Reason for visit: ICD shock K at 3.1 this AM. No chest pain. Reports mild shortness of breath, on chronic oxygen. Telemetry shows occasional PVCs, occasional ventricular bigeminy. Review of Systems Review of Systems: 8-point ROS obtained. Negative, unless stated in HPI. Exam Const: General: comfortable and no acute distress Other: Morbidly obese HENMT: Mouth: Yes moist mucous membranes Eyes: General: appearance normal, both eyes and all related structures Neck: Neck: supple Other: Difficult to ascern JVD due to body habitus. Resp: Effort & Inspection: normal respiratory effort Auscultation: diminished lung sounds Other: On supplemental oxygen via NC. Cardio: Rate: regular rate Rhythm: regular rhythm Heart sounds: no murmurs GI: Other: Obese abdomen. Skin: General skin exam: normal color Neuro: Speech: normal speech Extrem: General: edema Psych: Mental Status: mental status grossly normal Objective Data Vital Signs Vital Signs: Vital Signs - 24 hr 01/21/22 12:00 01/21/22 12:00 01/21/22 12:00 Temperature 35.8 C L Pulse Rate 58 L 61 Respiratory Rate 20 Blood Pressure 160/67 H Pulse Oximetry 100 95 Oxygen Delivery Nasal Cannula Oxygen Flow Rate 2 01/21/22 14:00 01/21/22 15:24 01/21/22 15:38 Temperature Pulse Rate 62 Respiratory Rate Blood Pressure Pulse Oximetry 95 Oxygen Delivery Nasal Cannula Nasal Cannula Oxygen Flow Rate 2 3 01/21/22 16:10 01/21/22 16:00 01/21/22 16:00 Temperature 35.9 C L Pulse Rate 65 64 59 L Respiratory Rate 18 Blood Pressure 162/90 H Pulse Oximetry 95 Oxygen Delivery Oxygen Flow Rate 01/21/22 20:00 01/21/22 20:00 01/21/22 20:00 Temperature 36.6 C 36.6 C Pulse Rate 61 61 62 Respiratory Rate 20 20 Blood Pressure 133/84 133/84 Pulse Oximetry 98 98 Oxygen Delivery Oxygen Flow Rate 01/21/22 20:00 01/21/22 22:00 01/22/22 00:00 Temperature 36.4 C Pulse Rate 61 63 66 Respiratory Rate 20 20 Blood Pressure 121/68 Pulse Oximetry 98 98 Oxygen Delivery Nasal Cannula Oxygen Flow Rate 2 01/22/22 00:03 01/22/22 00:03 01/22/22 00:00 Temperature Pulse Rate 66 Respiratory Rate Blood Pressure 121/68 133/84 Pulse Oximetry Oxygen Delivery Oxygen Flow Rate 01/22/22 00:00 01/22/22 00:08 01/22/22 02:00 Temperature Pulse Rate 70 Respiratory Rate Blood Pressure Pulse Oximetry 97 97 Oxygen Delivery Nasal Cannula Nasal Cannula Oxygen Flow Rate 2 2 01/22/22 04:00 01/22/22 04:00 01/22/22 04:00 Temperature 36.4 C Pulse Rate 61 61 Respiratory Rate 20 Blood
[2022-01-22] MEDS: INSULIN ASPART (*BKC) 100 UNITS/ML SUB-Q ×2 (11:43→16:50)
[2022-01-22 11:58] LABS: Glucose Point of Care 255 mg/dl (65-105)
--- NOTE | 2022-01-22 12:47 | P.PNNP_ITS ---
Progress Note: A&P Assessment and Plan (1) BRAULIO (acute kidney injury): Code(s): N17.9 - Acute kidney failure, unspecified Status: Acute Assessment and Plan: * creatinine higher than creatinine on last hospitalization/discharge * possibly due to issues with near syncope/syncope in the context of her known cardiomyopathy * overdiuresis (but evidence of volume overload at this time) * random fluctuations in baseline kidney function * new baseline? * renal ultrasound c/w with CKD but no obstruction * follow trend of repeat labs and UOP (2) CKD (chronic kidney disease): Code(s): N18.9 - Chronic kidney disease, unspecified Status: Chronic Assessment and Plan: * follows with Dr. Jesus Alberto Casillas for management of her chronic kidney disease * baseline seems to run 1.9 - 2.5mg/dl * due to CHF, diuretics, HTN, diabetes and vascular disease * however, given her known CHF, needs for diuretics, and possible cardiorenal syndrome, suspect renal function fluctuates to extremes in general * follow trend of renal function with diuresis (3) Hypokalemia: Code(s): E87.6 - Hypokalemia Status: Acute Assessment and Plan: * suspected etiology of VTach which led to #4 * due to total body stores depletion(?) * ongoing replacement being done * magnesium okay * follow trend (4) Syncope: Code(s): R55 - Syncope and collapse Status: Acute Assessment and Plan: * due Vtach and tachyarrhythmias precipitated by hypokalemia * apparently symptoms present for the last week [place] * complicated by #5 * PT/OT when more stable (5) Defibrillator discharge: Code(s): Z45.02 - Encounter for adjustment and management of automatic implantable cardiac defibrillator Status: Acute Assessment and Plan: * Cardiology following * device interrogation results noted (6) Cardiomyopathy: Code(s): I42.9 - Cardiomyopathy, unspecified Status: Chronic Assessment and Plan: * last known EF around 20% * careful diuresis given #3 * remains on medical management (Entresto, Aldactone, Coreg, Jardiance) (7) Type 2 diabetes mellitus: Code(s): E11.9 - Type 2 diabetes mellitus without complications Status: Chronic Assessment and Plan: * follow accuchecks * glycemic control Will continue to follow. Subjective Date/time seen: 01/22/22 12:47 Reports some mild shortness of breath at the time of my visit; potassium doing better but still running on the low side; tolerating oral diuretic therapy; renal function remain about the same as well; no acute distress voiced; no torie nts overnight or earlier this morning. Exam Narrative: General: middle aged AA female up in chair in NAD Heart: normal S1 and S2; no rub Lungs: clear anteriorly but decreased at bases Abdomen: soft, nontender, nondistended, positive bowel sounds Extremities: no cyanosis or clubbing; 1+ edema Skin: warm and dry Objective Data Vital Signs Vital Signs: Vital Signs Temp Pulse Resp BP Pulse Ox O2 Del Method O2 Flow Rate 01/22/22 12:00 61 01/22/22 12:06 139/85 01/22/22 12:06 135/87 01/22/22 12:00 36.0 C L 58 L 20 131/62 100 01/22/22 08:00 149/85 H 01/22/22 11:36 98 Nasal Cannula 2 01/22/22 10:00 68
--- NOTE | 2022-01-22 12:47 | PM.PNNEP ---
Progress Note: A&P Assessment and Plan (1) BRAULIO (acute kidney injury): Code(s): N17.9 - Acute kidney failure, unspecified Status: Acute Assessment and Plan: creatinine higher than creatinine on last hospitalization/discharge possibly due to issues with near syncope/syncope in the context of her known cardiomyopathy overdiuresis (but evidence of volume overload at this time) random fluctuations in baseline kidney function new baseline? renal ultrasound c/w with CKD but no obstruction follow trend of repeat labs and UOP (2) CKD (chronic kidney disease): Code(s): N18.9 - Chronic kidney disease, unspecified Status: Chronic Assessment and Plan: follows with Dr. Jesus Alberto Casillas for management of her chronic kidney disease baseline seems to run 1.9 - 2.5mg/dl due to CHF, diuretics, HTN, diabetes and vascular disease however, given her known CHF, needs for diuretics, and possible cardiorenal syndrome, suspect renal function fluctuates to extremes in general follow trend of renal function with diuresis (3) Hypokalemia: Code(s): E87.6 - Hypokalemia Status: Acute Assessment and Plan: suspected etiology of VTach which led to #4 due to total body stores depletion(?) ongoing replacement being done magnesium okay follow trend (4) Syncope: Code(s): R55 - Syncope and collapse Status: Acute Assessment and Plan: due Vtach and tachyarrhythmias precipitated by hypokalemia apparently symptoms present for the last week [place] complicated by #5 PT/OT when more stable (5) Defibrillator discharge: Code(s): Z45.02 - Encounter for adjustment and management of automatic implantable cardiac defibrillator Status: Acute Assessment and Plan: Cardiology following device interrogation results noted (6) Cardiomyopathy: Code(s): I42.9 - Cardiomyopathy, unspecified Status: Chronic Assessment and Plan: last known EF around 20% careful diuresis given #3 remains on medical management (Entresto, Aldactone, Coreg, Jardiance) (7) Type 2 diabetes mellitus: Code(s): E11.9 - Type 2 diabetes mellitus without complications Status: Chronic Assessment and Plan: follow accuchecks glycemic control Will continue to follow. Subjective Date/time seen: 01/22/22 12:47 Reports some mild shortness of breath at the time of my visit; potassium doing better but still running on the low side; tolerating oral diuretic therapy; renal function remain about the same as well; no acute distress voiced; no events overnight or earlier this morning. Exam Narrative: General: middle aged AA female up in chair in NAD Heart: normal S1 and S2; no rub Lungs: clear anteriorly but decreased at bases Abdomen: soft, nontender, nondistended, positive bowel sounds Extremities: no cyanosis or clubbing; 1+ edema Skin: warm and dry Objective Data Vital Signs Vital Signs: Vital Signs Temp Pulse Resp BP Pulse Ox O2 Del Method O2 Flow Rate 01/22/22 12:00 61 01/22/22 12:06 139/85 01/22/22 12:06 135/87 01/22/22 12:00 36.0 C L 58 L 20 131/62 100 01/22/22 08:00 149/85 H 01/22/22 11:36 98 Nasal Cannula 2 01/22/22 10:00 68 01/22/22 09:45 Nasal Cannula 3 01/22/22 09:00 36.6 C 75 20 149/85 H 98 01/22/22 08:00 36.6 C 75 18 149/85 H 98 01/22/22 08:00 98 Nasal Cannula 2 01/22/22 08:00 61 01/22/22 08:07 60 01/22/22 06:00 64 01/22/22 04:00 36.4 C 61 20 101/56 L 97 01/22/22 04:00 98 Nasal Cannula 2 01/22/22 04:00 61 01/22/22 02:00 70 01/22/22 00:08 97 Nasal Cannula 2 01/22/22 00:00 97 Nasal Cannula 2 01/22/22 00:00 66 01/22/22 00:03 133/84 01/22/22 00:03 121/68 01/22/22 00:00 36.4 C 66 20 121/68 98 01/21/22 22:00 63
[2022-01-22 13:41] LABS: Potassium 4.1 mmol/L (3.4-5.0)
[2022-01-22 16:44] LABS: Glucose Point of Care 231 mg/dl (65-105)
[2022-01-22 16:44] LABS: Glucose Point of Care 164 mg/dl (65-105)
[2022-01-22 19:33] LABS: Glucose Point of Care 224 mg/dl (65-105)
[2022-01-22] MEDS: INSULIN DETEMIR 100 UNITS/ML 8 UNITS SUB-Q (21:52)
[2022-01-22] MEDS: QUEtiapine FUMARATE 100 MG TABLET 200 MG PO (21:52)
[2022-01-23] VITALS (17 sets, daily range): BP systolic 99–155; BP diastolic 59–93; PULSE 60–71; RESP 18–22; TEMP 35.8–36.9; O2SAT 91–100
[2022-01-23 00:01] LABS: Glucose Point of Care 221 mg/dl (65-105)
[2022-01-23 04:34] LABS: Glucose Point of Care 170 mg/dl (65-105)
[2022-01-23 05:15] LABS: Albumin Level 3.8 g/dL (3.5-5.1); Blood Urea Nitrogen 41 mg/dL (7-17); Calcium 9.4 mg/dL (8.4-10.2); Carbon Dioxide > 40 mmol/L (22-30); Chloride 93 mmol/L (98-107); Estimated CRCL calculation 38 ml/min; Estimated Glomerular Filt Rate 27; Glucose 178 mg/dL (65-110); Phosphorus 3.6 mg/dL (2.5-4.5); Potassium 3.5 mmol/L (3.4-5.0); Sodium 142 mmol/L (137-145)
[2022-01-23 08:13] LABS: Glucose Point of Care 152 mg/dl (65-105)
--- NOTE | 2022-01-23 08:23 | PM.PNCARD ---
Progress Note: A&P Assessment and Plan (1) Defibrillator discharge: Code(s): Z45.02 - Encounter for adjustment and management of automatic implantable cardiac defibrillator Status: Acute (2) Hypokalemia: Code(s): E87.6 - Hypokalemia Status: Acute (3) Heart failure with reduced ejection fraction: Code(s): I50.20 - Unspecified systolic (congestive) heart failure Status: Acute (4) Nonischemic cardiomyopathy: Code(s): I42.8 - Other cardiomyopathies Status: Acute Plan ICD interrogation shows that patient received ATP x 3 with 1 shock on 01/19 for VT. VT likely due to significant hypokalemia of 2.2 on presentation. K+ 3.5 today, continue to replete until K+ >4.0. Daily BMP. Continue to monitor on telemetry. For her heart failure GDMT, continue home Coreg, Jardiance. Corlanor not on formulary. Would restart Entresto and Aldactone when renal function allows. Patient has some volume overload, will give one dose IV furosemide 40mg, but would continue to avoid increasing scheduled diuretics at this time. Will also give extra 20 mEq KCL x1. Will order fluid restriction Subjective Date/time seen: 01/23/22 08:23 Interval history: Reason for visit: ICD shock K at 3.1 this AM. No chest pain. Reports mild shortness of breath, on chronic oxygen. Telemetry shows occasional PVCs, occasional ventricular bigeminy. Date of service 01/23/22: She feels like she's more swollen today. Feeling okay aside from that. No chest pain or worsening shortness of breath. Exam Const: General: comfortable and no acute distress Other: Morbidly obese HENMT: Mouth: Yes moist mucous membranes Eyes: General: appearance normal, both eyes and all related structures Neck: Neck: supple Other: Difficult to ascern JVD due to body habitus. Resp: Effort & Inspection: normal respiratory effort Auscultation: diminished lung sounds Other: On supplemental oxygen via NC. Cardio: Rate: regular rate Rhythm: regular rhythm Heart sounds: no murmurs GI: Other: Obese abdomen. Skin: General skin exam: normal color Neuro: Speech: normal speech Extrem: General: edema Psych: Mental Status: mental status grossly normal Objective Data Vital Signs Vital Signs: Vital Signs - 24 hr 01/22/22 09:00 01/22/22 09:45 01/22/22 10:00 Temperature 36.6 C Pulse Rate 75 68 Respiratory Rate 20 Blood Pressure 149/85 H Pulse Oximetry 98 Oxygen Delivery Nasal Cannula Oxygen Flow Rate 3 01/22/22 11:36 01/22/22 12:00 01/22/22 12:00 Temperature 36.0 C L Pulse Rate 58 L 61 Respiratory Rate 20 Blood Pressure 131/62 Pulse Oximetry 98 100 Oxygen Delivery Nasal Cannula Oxygen Flow Rate 2 01/22/22 14:00 01/22/22 16:00 01/22/22 16:08 Temperature Pulse Rate 60 66 Respiratory Rate Blood Pressure Pulse Oximetry 98 Oxygen Delivery Nasal Cannula Oxygen Flow Rate 2 01/22/22 16:00 01/22/22 16:00 01/22/22 18:00 Temperature 36.1 C L Pulse Rate 60 70 63 Respiratory Rate 18 Blood Pressure 140/81 Pulse Oximetry 100 Oxygen Delivery Oxygen Flow Rate 01/22/22 19:54 01/22/22 20:00 01/22/22 20:00 Temperature 36.9 C Pulse Rate 68 60 Respiratory Rate 20 Blood Pressure 144/114 H Pulse Oximetry 100 98 Oxygen Delivery Nasal Cannula Oxygen Flow Rate 2 01/22/22 21:32 01/22/22 22:00 01/23/22 00:04 Temperature 36.9 C Pulse Rate 60 64 Respiratory Rate 19 Blood Pressure 135/78 127/81 Pulse Oximetry 100 Oxygen Delivery Oxygen Flow Rate 01/23/22 00:00 01/23/22 00:00 01/23/22 02:00 Temperature Pulse Rate 60 60 Respiratory Rate Blood Pressure Pulse Oximetry 97 Oxygen Delivery Nasal Cannula Oxygen Flow Rate 2 01/23/22 04:00 01/23/22 04:00 01/23/22 05:01 Temperature 36.9 C Pulse Rate 61 67 Respiratory Rate 19 Blood Pressure 99/70 L Pulse Oximetry 100 100 Oxygen Delivery Nasal Cannu
[2022-01-23] MEDS: POTASSIUM CHLORIDE 20 MEQ PACKET (FOR LIQUID) PO ×3 (09:17→17:03)
[2022-01-23] MEDS: calcitrioL 0.25 MCG CAPSULE PO (09:18)
[2022-01-23] MEDS: EMPAGLIFLOZIN 10 MG TABLET PO (09:18)
[2022-01-23] MEDS: ESCITALOPRAM OXALATE 10 MG TABLET PO (09:18)
[2022-01-23] MEDS: FUROSEMIDE 40 MG TABLET PO ×2 (09:18→17:03)
[2022-01-23] MEDS: carvediloL 25 MG TABLET PO ×2 (09:19→17:03)
[2022-01-23] MEDS: buPROPion HCL XL (24 HR) 150 MG TABCR 300 MG PO (09:19)
[2022-01-23] MEDS: ASPIRIN 81 MG ENTERIC TABLET PO (09:19)
[2022-01-23] MEDS: FERROUS SULFATE 324 MG TABLET PO (09:19)
[2022-01-23] MEDS: allopurinoL 100 MG TABLET PO (09:20)
[2022-01-23] MEDS: HEPARIN SODIUM 5,000 UNITS/ML VIAL 5000 UNITS SUB-Q ×2 (09:20→20:15)
[2022-01-23] MEDS: UMECLIDINIUM BROMIDE 62.5 MCG ELLIPTA 2 PUFF INHALATION (09:20)
[2022-01-23] MEDS: ROSUVASTATIN 5 MG TABLET PO (09:20)
[2022-01-23] MEDS: ISOSORBIDE MONONITRATE 30 MG TAB.ER.24H PO (09:20)
[2022-01-23] MEDS: EUCERIN CREAM 120 GM JAR 1 APPLIC TOPICAL (09:21)
[2022-01-23] MEDS: FUROSEMIDE INJ 40 MG/4 ML VIAL IV PUSH (11:06)
[2022-01-23 12:17] LABS: Glucose Point of Care 177 mg/dl (65-105)
--- NOTE | 2022-01-23 13:02 | PC.NURSE ---
This patient, Bette Casper, was transferred to [[id number] ] on 01/23/22 at 1251. Personal belongings sent with patient. Report given to [Gisela CAMARENA]. Appropriate documentation sent with patient.
--- NOTE | 2022-01-23 13:36 | P.PNNP_ITS ---
Progress Note: A&P Assessment and Plan (1) BRAULIO (acute kidney injury): Code(s): N17.9 - Acute kidney failure, unspecified Status: Acute Assessment and Plan: * creatinine higher than creatinine on last hospitalization/discharge * possibly due to issues with near syncope/syncope in the context of her known cardiomyopathy * overdiuresis (but evidence of volume overload at this time) * random fluctuations in baseline kidney function * new baseline? * renal ultrasound c/w with CKD but no obstruction * follow trend of repeat labs and UOP (2) CKD (chronic kidney disease): Code(s): N18.9 - Chronic kidney disease, unspecified Status: Chronic Assessment and Plan: * follows with Dr. Jesus Alberto Casillas for management of her chronic kidney disease * baseline seems to run around 1.9 - 2.5mg/dl * due to CHF, diuretics, HTN, diabetes and vascular disease * however, given her known CHF, needs for diuretics, and possible cardiorenal syndrome, suspect renal function fluctuates to extremes in general * follow trend of renal function with diuresis (3) Hypokalemia: Code(s): E87.6 - Hypokalemia Status: Acute Assessment and Plan: * improving * suspected etiology of VTach which led to #4 * due to total body stores depletion(?) * ongoing replacement being done * magnesium okay * follow trend (4) Syncope: Code(s): R55 - Syncope and collapse Status: Acute Assessment and Plan: * due Vtach and tachyarrhythmias precipitated by hypokalemia * apparently symptoms present for the last week [employer] * complicated by #5 * PT/OT when more stable (5) Defibrillator discharge: Code(s): Z45.02 - Encounter for adjustment and management of automatic implantable cardiac defibrillator Status: Acute Assessment and Plan: * Cardiology following * device interrogation results noted (6) Cardiomyopathy: Code(s): I42.9 - Cardiomyopathy, unspecified Status: Chronic Assessment and Plan: * last known EF around 20% * careful diuresis given #3 * resume/continue medical management as tolerated(Entresto, coreg, spironolactone,Jardiance) * no opposed to escalating diuretic therapy as needed since K+ stabilizing (7) Type 2 diabetes mellitus: Code(s): E11.9 - Type 2 diabetes mellitus without complications Status: Chronic Assessment and Plan: * follow accuchecks * glycemic control Will continue to follow. Subjective Date/time seen: 01/23/22 13:36 Overall, she states that she feels better in comparison to admission; renal function as well as potassium appears to be doing better; tolerating oral diuretic as well as potassium therapy; no other issues/events overnight or earlier this morning. Exam Narrative: General: middle aged AA female up in chair in NAD Heart: normal S1 and S2; no rub Lungs: clear anteriorly but decreased at bases Abdomen: soft, nontender, nondistended, positive bowel sounds Extremities: no cyanosis or clubbing; 1+ edema Skin: warm and intact Objective Data Vital Signs Vital Signs: Vital Signs Temp Pulse Resp BP Pulse Ox O2 Del Method O2 Flow Rate 01/23/22 12:00 98 Nasal Cannula 2 01/23/22 08:00 98 Nasal Cannula 2 01/23/22 12:00 63 01/23/22 10:00 63 01/23/22 08:00 60
--- NOTE | 2022-01-23 13:36 | PM.PNNEP ---
Progress Note: A&P Assessment and Plan (1) BRAULIO (acute kidney injury): Code(s): N17.9 - Acute kidney failure, unspecified Status: Acute Assessment and Plan: creatinine higher than creatinine on last hospitalization/discharge possibly due to issues with near syncope/syncope in the context of her known cardiomyopathy overdiuresis (but evidence of volume overload at this time) random fluctuations in baseline kidney function new baseline? renal ultrasound c/w with CKD but no obstruction follow trend of repeat labs and UOP (2) CKD (chronic kidney disease): Code(s): N18.9 - Chronic kidney disease, unspecified Status: Chronic Assessment and Plan: follows with Dr. Jesus Alberto Casillas for management of her chronic kidney disease baseline seems to run around 1.9 - 2.5mg/dl due to CHF, diuretics, HTN, diabetes and vascular disease however, given her known CHF, needs for diuretics, and possible cardiorenal syndrome, suspect renal function fluctuates to extremes in general follow trend of renal function with diuresis (3) Hypokalemia: Code(s): E87.6 - Hypokalemia Status: Acute Assessment and Plan: improving suspected etiology of VTach which led to #4 due to total body stores depletion(?) ongoing replacement being done magnesium okay follow trend (4) Syncope: Code(s): R55 - Syncope and collapse Status: Acute Assessment and Plan: due Vtach and tachyarrhythmias precipitated by hypokalemia apparently symptoms present for the last week [employer] complicated by #5 PT/OT when more stable (5) Defibrillator discharge: Code(s): Z45.02 - Encounter for adjustment and management of automatic implantable cardiac defibrillator Status: Acute Assessment and Plan: Cardiology following device interrogation results noted (6) Cardiomyopathy: Code(s): I42.9 - Cardiomyopathy, unspecified Status: Chronic Assessment and Plan: last known EF around 20% careful diuresis given #3 resume/continue medical management as tolerated(Entresto, coreg, spironolactone,Jardiance) no opposed to escalating diuretic therapy as needed since K+ stabilizing (7) Type 2 diabetes mellitus: Code(s): E11.9 - Type 2 diabetes mellitus without complications Status: Chronic Assessment and Plan: follow accuchecks glycemic control Will continue to follow. Subjective Date/time seen: 01/23/22 13:36 Overall, she states that she feels better in comparison to admission; renal function as well as potassium appears to be doing better; tolerating oral diuretic as well as potassium therapy; no other issues/events overnight or earlier this morning. Exam Narrative: General: middle aged AA female up in chair in NAD Heart: normal S1 and S2; no rub Lungs: clear anteriorly but decreased at bases Abdomen: soft, nontender, nondistended, positive bowel sounds Extremities: no cyanosis or clubbing; 1+ edema Skin: warm and intact Objective Data Vital Signs Vital Signs: Vital Signs Temp Pulse Resp BP Pulse Ox O2 Del Method O2 Flow Rate 01/23/22 12:00 98 Nasal Cannula 2 01/23/22 08:00 98 Nasal Cannula 2 01/23/22 12:00 63 01/23/22 10:00 63 01/23/22 08:00 60 01/23/22 12:00 35.8 C L 61 20 135/83 100 01/23/22 09:24 95 Nasal Cannula 2 01/23/22 09:19 66 01/23/22 08:30 35.8 C L 62 18 144/59 H 98 01/23/22 06:00 62 01/23/22 05:01 36.9 C 67 19 99/70 L 100 01/23/22 04:00 100 Nasal Cannula 2 01/23/22 04:00 61 01/23/22 02:00 60 01/23/22 00:00 97 Nasal Cannula 2 01/23/22 00:00 60 01/23/22 00:04 36.9 C 64 19 127/81 100 01/22/22 22:00 60 01/22/22 21:32 135/78 01/22/22 20:00 98 Nasal Cannula 2 01/22/22 20:00 60 01/22/22 19:54 36.9 C 68 20 144/114 H 100
[2022-01-23 16:33] LABS: Glucose Point of Care 183 mg/dl (65-105)
--- NOTE | 2022-01-23 17:15 | P.PNIM_ITS ---
Progress Note: A&P Assessment and Plan (1) Defibrillator discharge: Code(s): Z45.02 - Encounter for adjustment and management of automatic implantable cardiac defibrillator Status: Acute (2) Syncope: Code(s): R55 - Syncope and collapse Status: Acute (3) BRAULIO (acute kidney injury): Code(s): N17.9 - Acute kidney failure, unspecified Status: Acute (4) Elevated troponin: Code(s): R77.8 - Other specified abnormalities of plasma proteins Status: Acute (5) Hypokalemia: Code(s): E87.6 - Hypokalemia Status: Acute (6) Cardiomyopathy: Code(s): I42.9 - Cardiomyopathy, unspecified Status: Chronic (7) Heart failure with reduced ejection fraction: Code(s): I50.20 - Unspecified systolic (congestive) heart failure Status: Acute (8) Left leg weakness: Code(s): R29.898 - Other symptoms and signs involving the musculoskeletal system Status: Acute (9) Chronic respiratory failure with hypoxia and hypercapnia: Code(s): J96.11 - Chronic respiratory failure with hypoxia; J96.12 - Chronic respiratory failure with hypercapnia Status: Acute (10) Chronic kidney disease: Code(s): N18.9 - Chronic kidney disease, unspecified Status: Acute (11) Type 2 diabetes mellitus: Code(s): E11.9 - Type 2 diabetes mellitus without complications Status: Chronic (12) Chronic obstructive lung disease: Code(s): J44.9 - Chronic obstructive pulmonary disease, unspecified Status: Acute Plan 01/20/22 The patient presented to the emergency department today for evaluation of increasing shortness of breath, orthopnea, and edema. Upon further questioning it has come to light that she has had for near syncopal or syncopal episodes in the last 1 week and last evening she reports that her defibrillator fired. The device will be interrogated and she is being admitted for close monitoring on telemetry tonight. Potassium on admission was 2.2 and her potassium will be replaced aggressively with close monitoring. Troponin was elevated but has remained flat, likely related to defibrillator shock. She has not had any chest pain whatsoever. At this time she does not look significantly volume overloaded however given her increasing shortness of breath, orthopnea, and some congestion on chest x-ray she may benefit from diuresis however will hold on that until her potassium is closer to for. Fall precautions will be initiated. We will monitor orthostatic vital signs. Creatinine is up from baseline and we will need to monitor this closely while cautiously diuresing. Renal ultrasound has been ordered for a.m. Monitor strict I/O. Regarding the left leg weakness, brain CT has been ordered and we may consider brain MRI as well. PT/ OT has been consulted. No evidence on exam today to suggest COPD exacerbation. Continue basal insulin. Initiate sliding scale insulin, Accu-Cheks, and hypoglycemic protocol. The rest of her home medications will be reviewed and resumed as appropriate. 01/21/22 Suspect patient has 2 issues resulting her falls. The 1st issue is with left leg weakness possibly related to her knee. This appears to be more mechanical. Will check left knee x-ray. Start therapy. The 2nd issue appears to be related to possibly cardiac dysrhythmia causing syncope/presyncope. Device interrogation has been ordered. Potassium remains low and this is being replaced. Will repeat potassium level later today and continue to replace as needed. Magnesium level normal. Continue oral replacement. Continue Lasix, Jardiance, Coreg. Corlanor on hold (nonfomrulary). A
[2022-01-23] MEDS: QUEtiapine FUMARATE 100 MG TABLET 200 MG PO (20:15)
[2022-01-23] MEDS: INSULIN DETEMIR 100 UNITS/ML 8 UNITS SUB-Q (21:41)
[2022-01-23 22:16] LABS: Glucose Point of Care 235 mg/dl (65-105)
[2022-01-24] VITALS (8 sets, daily range): BP systolic 142–157; BP diastolic 78–88; PULSE 65–78; RESP 20; TEMP 35.8–36.6; O2SAT 93–94
[2022-01-24 07:57] LABS: Anion Gap 8 mmol/L (8-16); Blood Urea Nitrogen 40 mg/dL (7-17); Calcium 9.6 mg/dL (8.4-10.2); Carbon Dioxide 38 mmol/L (22-30); Chloride 95 mmol/L (98-107); Estimated CRCL calculation 41 ml/min; Estimated Glomerular Filt Rate 30; Glucose 170 mg/dL (65-110); Magnesium 2.3 mg/dL (1.6-2.3); Potassium 4.6 mmol/L (3.4-5.0); Sodium 141 mmol/L (137-145)
[2022-01-24 08:10] LABS: Glucose Point of Care 165 mg/dl (65-105)
[2022-01-24] MEDS: POTASSIUM CHLORIDE 20 MEQ PACKET (FOR LIQUID) PO (08:44)
[2022-01-24] MEDS: ESCITALOPRAM OXALATE 10 MG TABLET PO (08:46)
[2022-01-24] MEDS: ROSUVASTATIN 5 MG TABLET PO (08:46)
[2022-01-24] MEDS: HEPARIN SODIUM 5,000 UNITS/ML VIAL 5000 UNITS SUB-Q (08:46)
[2022-01-24] MEDS: FUROSEMIDE 40 MG TABLET PO (08:46)
[2022-01-24] MEDS: ASPIRIN 81 MG ENTERIC TABLET PO (08:46)
[2022-01-24] MEDS: allopurinoL 100 MG TABLET PO (08:46)
[2022-01-24] MEDS: buPROPion HCL XL (24 HR) 150 MG TABCR 300 MG PO (08:46)
[2022-01-24] MEDS: calcitrioL 0.25 MCG CAPSULE PO (08:46)
[2022-01-24] MEDS: EMPAGLIFLOZIN 10 MG TABLET PO (08:46)
[2022-01-24] MEDS: FERROUS SULFATE 324 MG TABLET PO (08:46)
[2022-01-24] MEDS: carvediloL 25 MG TABLET PO (08:46)
[2022-01-24] MEDS: ISOSORBIDE MONONITRATE 30 MG TAB.ER.24H PO (08:46)
[2022-01-24] MEDS: EUCERIN CREAM 120 GM JAR 1 APPLIC TOPICAL (08:47)
[2022-01-24] MEDS: UMECLIDINIUM BROMIDE 62.5 MCG ELLIPTA 1 PUFF INHALATION (09:55)
--- NOTE | 2022-01-24 10:01 | PM.PNCARD ---
Progress Note: A&P Assessment and Plan (1) Heart failure with reduced ejection fraction: Code(s): I50.20 - Unspecified systolic (congestive) heart failure Status: Acute (2) Defibrillator discharge: Code(s): Z45.02 - Encounter for adjustment and management of automatic implantable cardiac defibrillator Status: Acute Plan 51-year-old patient with significant dilated cardiomyopathy with low ejection fraction had received a shock from her ICD because of this in combination with hypokalemia at the time of admission. That has been corrected with potassium supplementation. She appears to be stable from that perspective. She receives her cardiovascular care elsewhere but continues to come here when she has cardiac problems requiring admission. According to the record it looks like she was not on a potassium supplement at the time of admission to the hospital 1 will have to be started obviously. No other cardiac recommendations at this time Larry Dougherty MD [facility] Subjective Date/time seen: date of service:01/24/22 10:01 Interval history: Reason for visit: ICD shock K at 3.1 this AM. No chest pain. Reports mild shortness of breath, on chronic oxygen. Telemetry shows occasional PVCs, occasional ventricular bigeminy. Date of service 01/23/22: She feels like she's more swollen today. Feeling okay aside from that. No chest pain or worsening shortness of breath. Date of service 01/24/2022: Patient is asymptomatic today no shortness of breath no complaints Other than would like some ice water at her bedside Exam Const: General: comfortable and no acute distress Other: Morbidly obese HENMT: Mouth: Yes moist mucous membranes Eyes: General: appearance normal, both eyes and all related structures Neck: Neck: supple Other: Difficult to ascern JVD due to body habitus. Resp: Effort & Inspection: normal respiratory effort Auscultation: diminished lung sounds Other: On supplemental oxygen via NC. Cardio: Rate: regular rate Rhythm: regular rhythm Heart sounds: no murmurs GI: Other: Obese abdomen. Skin: General skin exam: normal color Neuro: Speech: normal speech Extrem: General: edema Psych: Mental Status: mental status grossly normal Objective Data Vital Signs Vital Signs: Vital Signs - 24 hr 01/23/22 12:00 01/23/22 12:00 01/23/22 12:00 Temperature 35.8 C L Pulse Rate 61 63 Respiratory Rate 20 Blood Pressure 135/83 Pulse Oximetry 100 98 Oxygen Delivery Nasal Cannula Oxygen Flow Rate 2 01/23/22 14:00 01/23/22 17:03 01/23/22 16:00 Temperature 36.6 C Pulse Rate 61 64 66 Respiratory Rate 22 H Blood Pressure 139/64 Pulse Oximetry 100 Oxygen Delivery Oxygen Flow Rate 01/23/22 20:59 01/23/22 20:00 01/24/22 00:00 Temperature 36.2 C L Pulse Rate 68 71 71 Respiratory Rate 20 Blood Pressure 155/93 H Pulse Oximetry 91 Oxygen Delivery Oxygen Flow Rate 01/24/22 04:00 01/24/22 05:53 01/24/22 08:46 Temperature 36.6 C Pulse Rate 65 65 78 Respiratory Rate 20 Blood Pressure 157/88 H Pulse Oximetry 94 Oxygen Delivery Oxygen Flow Rate 01/24/22 09:50 Temperature Pulse Rate Respiratory Rate Blood Pressure Pulse Oximetry 94 Oxygen Delivery Nasal Cannula Oxygen Flow Rate 2 Intake/Output Intake/Output: Intake & Output 01/21/22 01/22/22 01/23/22 01/24/22 23:59 23:59 23:59 23:59 Intake Total 2620 1450 1430 Output Total 2750 2475 Balance -130 -1025 1430 Meds/Results Medications: Active Medications Generic Name Dose Route Start Last Admin Trade Name Freq PRN Reason Stop Dose Admin Acetaminophen 650 mg 01/20/22 14:03 Acetaminophen 325 Mg Tablet PO Q4H PRN Mild Pain (1-3) or Fever Albuterol 2 puff 01/20/22 22:43 Albuterol Sulfate (*Sp) Aerosol 1 Puff INHALATION DAILY PRN Shortness Of Breath Allopurinol 100 mg 01/21/22 09:00 01/24
--- NOTE | 2022-01-24 11:07 | PCOTNOTE ---
Patient refused this AM OT. Patient reports wanting to wait until tomorrow morning. Will continue OT per plan of care.
--- NOTE | 2022-01-24 11:27 | PM.CNOR ---
Assessment and Plan Assessment and plan (1) Arthritis of knee, left: Code(s): M17.12 - Unilateral primary osteoarthritis, left knee Status: Chronic Plan 51-year-old female with left knee arthritis which is severe. Due to her size and comorbidities she really never will be a candidate for joint replacement surgery. Tolerated the intra-articular injection without difficulty. Could be repeated in six months if she would like. Continue use of the walker. No restriction of activities. The loose body seen on x-ray are fairly larger and are in the posterior portion of the knee. Likely these are attached to the synovium in the posterior aspect of the joint. Regarding her lumbar radicular-type pain, she would probably benefit from some degree of back therapy and evaluation by curriculum and instruction specialist. History of Present Illness HPI Consult date: 01/24/22 Chief complaint: Left knee pain Narrative: This document created with [id number] technology and is subject to scrap piler irregularities. 51-year-old female with multiple medical issues. She is being seen today for left knee pain. She does have difficulty getting out of chairs, cars and stair climbing. She uses cane and walker as a gait aid. Does not really have trouble on the right side. On the left she has pain that I not only is in her knee but that times extends from her buttock clear down to her foot. She does have global knee irritability today on the left however. Review of Systems Constitutional: Constitutional: Reports no additional constitutional complaints, Denies excessive sweating and Reports fatigue Eyes: Eyes: Reports no additional eye complaints ENT: Reports system reviewed and no additional complaints, except as documented Cardiovascular: Cardiovascular: Denies chest pain at rest Respiratory: Respiratory: Reports no additional respiratory complaints Gastrointestinal: Gastrointestinal: Reports no additional gastrointestinal complaints Musculoskeletal: Musculoskeletal: Reports as per HPI Integumentary/Breasts: Skin/Breast: Reports system reviewed and no additional complaints, except as docu Neurologic: Reports as per HPI [facility] Past Medical History Medical History (Updated 01/24/22 @ 11:32 by Artemoi Purdy MD) Arthritis of knee, left Chronic kidney disease, stage III (moderate) Chronic obstructive lung disease Chronic respiratory failure with hypoxia and hypercapnia Essential hypertension Heart failure with reduced ejection fraction Morbid obesity Nonischemic cardiomyopathy Obstructive sleep apnea Type 2 diabetes mellitus Surgical History Surgical History History of bilateral carpal tunnel release History of cardiac defibrillator placement History of laparoscopic cholecystectomy History of permanent cardiac pacemaker placement History of tubal ligation Family History Family History Grandparent Diabetes mellitus Hypertension Sibling Diabetes mellitus Patient's brother is in good health Patient's sister is in good health Asthma Father Patient's father is Mother Patient's mother is Other Family history of malignant neoplasm Social History Social History Social History: The patient lives in [place] and her significant other stays with her. She has 2 biological and many foster children that she has raised. She is a lifelong nonsmoker. She denies using any alcohol marijuana. She does not have a durable power city attorney for healthcare. She designates her daughter, Juan Pablo Walker, as her surrogate decision maker and she wishes to be a full code. Lack of Transportation: YES Lack of Food: Never True Current Housing: I Have Housing Concerned About Future Housing: No Difficulty Paying Gas/Electric Bills:
[2022-01-24 11:59] LABS: Glucose Point of Care 205 mg/dl (65-105)
--- NOTE | 2022-01-24 12:05 | PCPTNOTE ---
Patient refused treatment this session due to possibly being D/C today and would like to save her energy for going home. Will attempt again.
[2022-01-24] MEDS: INSULIN ASPART (*BKC) 100 UNITS/ML SUB-Q (12:45)
--- NOTE | 2022-01-24 12:50 | PM.PNNEP ---
Progress Note: A&P Assessment and Plan (1) BRAULIO (acute kidney injury): Code(s): N17.9 - Acute kidney failure, unspecified Status: Acute Assessment and Plan: creatinine higher on admission than creatinine on last hospitalization/discharge possibly due to issues with near syncope/syncope in the context of her known cardiomyopathy overdiuresis (but evidence of volume overload at this time) random fluctuations in baseline kidney function renal ultrasound c/w with CKD but no obstruction follow trend of repeat labs and UOP (2) CKD (chronic kidney disease): Code(s): N18.9 - Chronic kidney disease, unspecified Status: Chronic Assessment and Plan: follows with Dr. Jesus Alberto Casillas for management of her chronic kidney disease baseline seems to run around 1.9 - 2.5mg/dl due to CHF, diuretics, HTN, diabetes and vascular disease however, given her known CHF, needs for diuretics, and possible cardiorenal syndrome, suspect renal function fluctuates to extremes in general follow trend of renal function with diuresis (3) Hypokalemia: Code(s): E87.6 - Hypokalemia Status: Acute Assessment and Plan: improving suspected etiology of VTach which led to #4 due to total body stores depletion(?) ongoing replacement being done and will likely need on discharge magnesium okay follow trend (4) Syncope: Code(s): R55 - Syncope and collapse Status: Acute Assessment and Plan: due Vtach and tachyarrhythmias precipitated by hypokalemia apparently symptoms present for 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 PT/OT when more stable (5) Defibrillator discharge: Code(s): Z45.02 - Encounter for adjustment and management of automatic implantable cardiac defibrillator Status: Acute Assessment and Plan: Cardiology following device interrogation results noted (6) Cardiomyopathy: Code(s): I42.9 - Cardiomyopathy, unspecified Status: Chronic Assessment and Plan: last known EF around 20% careful diuresis given #3 resume/continue medical management as tolerated no opposed to escalating diuretic therapy as needed since K+ stabilizing (7) Type 2 diabetes mellitus: Code(s): E11.9 - Type 2 diabetes mellitus without complications Status: Chronic Assessment and Plan: follow accuchecks glycemic control Will continue to follow. Subjective Date/time seen: 01/24/22 12:50 Cotninues to do quite well at the time of my visit; potassium and renal function relatively stable at this time; seen by Orthopedics and is s/p left knee injection which she tolerated quite well. Exam Narrative: General: middle aged AA female up in chair in NAD Heart: normal S1 and S2; no rub Lungs: clear anteriorly but decreased at bases Abdomen: soft, nontender, nondistended, positive bowel sounds Extremities: no cyanosis or clubbing; 1+ edema Skin: no rash or nodules Objective Data Vital Signs Vital Signs: Vital Signs Temp Pulse Resp BP Pulse Ox O2 Del Method O2 Flow Rate 01/24/22 12:00 66 01/24/22 08:00 78 01/24/22 08:00 93 Nasal Cannula 2 01/24/22 09:50 94 Nasal Cannula 2 01/24/22 08:46 78 01/24/22 05:53 36.6 C 65 20 157/88 H 94 01/24/22 04:00 65 01/24/22 00:00 71 01/23/22 20:00 71 01/23/22 20:59 36.2 C L 68 20 155/93 H 91 01/23/22 16:00 66 01/23/22 17:03 64 Intake/Output Intake/Output: Intake & Output 01/21/22 01/22/22 01/23/22 01/24/22 23:59 23:59 23:59 23:59 Intake Total 2620 1450 1430 480 Output Total 2750 2475 Balance -130 -1025 1430 480 Meds/Results Medications: Active Medications Generic Name Dose Route Start Last Admin Trade Name Freq PRN Reason Stop Dose Admin Acetaminophen 650 mg 01/20/22 14:03 Acetaminophen 325 Mg Tablet PO Q4H PRN Mild Pain (1-3) or Fever Al
--- NOTE | 2022-01-24 12:50 | P.PNNP_ITS ---
Progress Note: A&P Assessment and Plan (1) BRAULIO (acute kidney injury): Code(s): N17.9 - Acute kidney failure, unspecified Status: Acute Assessment and Plan: * creatinine higher on admission than creatinine on last hospitalization/discharge * possibly due to issues with near syncope/syncope in the context of her known cardiomyopathy * overdiuresis (but evidence of volume overload at this time) * random fluctuations in baseline kidney function * renal ultrasound c/w with CKD but no obstruction * follow trend of repeat labs and UOP (2) CKD (chronic kidney disease): Code(s): N18.9 - Chronic kidney disease, unspecified Status: Chronic Assessment and Plan: * follows with Dr. Jesus Alberto Casillas for management of her chronic kidney disease * baseline seems to run around 1.9 - 2.5mg/dl * due to CHF, diuretics, HTN, diabetes and vascular disease * however, given her known CHF, needs for diuretics, and possible cardiorenal syndrome, suspect renal function fluctuates to extremes in general * follow trend of renal function with diuresis (3) Hypokalemia: Code(s): E87.6 - Hypokalemia Status: Acute Assessment and Plan: * improving * suspected etiology of VTach which led to #4 * due to total body stores depletion(?) * ongoing replacement being done and will likely need on discharge * magnesium okay * follow trend (4) Syncope: Code(s): R55 - Syncope and collapse Status: Acute Assessment and Plan: * due Vtach and tachyarrhythmias precipitated by hypokalemia * 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 #5 * PT/OT when more stable (5) Defibrillator discharge: Code(s): Z45.02 - Encounter for adjustment and management of automatic implantable cardiac defibrillator Status: Acute Assessment and Plan: * Cardiology following * device interrogation results noted (6) Cardiomyopathy: Code(s): I42.9 - Cardiomyopathy, unspecified Status: Chronic Assessment and Plan: * last known EF around 20% * careful diuresis given #3 * resume/continue medical management as tolerated * no opposed to escalating diuretic therapy as needed since K+ stabilizing (7) Type 2 diabetes mellitus: Code(s): E11.9 - Type 2 diabetes mellitus without complications Status: Chronic Assessment and Plan: * follow accuchecks * glycemic control Will continue to follow. Subjective Date/time seen: 01/24/22 12:50 Cotninues to do quite well at the time of my visit; potassium and renal function relatively stable at this time; seen by Orthopedics and is s/p left knee injection which she tolerated quite well. Exam Narrative: General: middle aged AA female up in chair in NAD Heart: normal S1 and S2; no rub Lungs: clear anteriorly but decreased at bases Abdomen: soft, nontender, nondistended, positive bowel sounds Extremities: no cyanosis or clubbing; 1+ edema Skin: no rash or nodules Objective Data Vital Signs Vital Signs: Vital Signs Temp Pulse Resp BP Pulse Ox O2 Del Method O2 Flow Rate 01/24/22 12:00 66 01/24/22 08:00 78 01/24/22 08:00 93 Nasal Cannula 2 01/24/22 09:50 94 Nasal Cannula 2 01/24/22 08:46 78 01/24/22 05:53 36.6 C 65 20 157/88 H 94 01/24/22 04:00
[2022-01-24] MEDS: LIDOCAINE HCL 1% LOCAL INJ 20 ML VIAL INFILTRATE (13:21)
[2022-01-24] MEDS: TRIAMCINOLONE ACET INJ SUSP 50 MG/5 ML VIAL IM (13:21)
--- NOTE | 2022-01-24 13:32 | PM.DS ---
DS: Admitting Diagnosis Discharge Date 01/24/22 Admitting Diagnosis Defibrillator discharge DS: Discharge Diagnosis Discharge Diagnosis (1) Defibrillator discharge: Code(s): Z45.02 - Encounter for adjustment and management of automatic implantable cardiac defibrillator Status: Acute (2) Syncope: Code(s): R55 - Syncope and collapse Status: Acute (3) BRAULIO (acute kidney injury): Code(s): N17.9 - Acute kidney failure, unspecified Status: Acute (4) Elevated troponin: Code(s): R77.8 - Other specified abnormalities of plasma proteins Status: Acute (5) Hypokalemia: Code(s): E87.6 - Hypokalemia Status: Acute (6) Cardiomyopathy: Code(s): I42.9 - Cardiomyopathy, unspecified Status: Chronic (7) Heart failure with reduced ejection fraction: Code(s): I50.20 - Unspecified systolic (congestive) heart failure Status: Acute (8) Left leg weakness: Code(s): R29.898 - Other symptoms and signs involving the musculoskeletal system Status: Acute (9) Chronic respiratory failure with hypoxia and hypercapnia: Code(s): J96.11 - Chronic respiratory failure with hypoxia; J96.12 - Chronic respiratory failure with hypercapnia Status: Acute (10) Chronic kidney disease: Code(s): N18.9 - Chronic kidney disease, unspecified Status: Acute (11) Type 2 diabetes mellitus: Code(s): E11.9 - Type 2 diabetes mellitus without complications Status: Chronic (12) Chronic obstructive lung disease: Code(s): J44.9 - Chronic obstructive pulmonary disease, unspecified Status: Acute DS: Summary Hospital Course Reason for hospitalization: 81yo female with CHF, COPD, chronic respiratory failure, DM and CMP with PM/ICD in place here for falls, syncope and ICD firing. Please see H&P for details. Hospital Course: The patient presented to the emergency department for evaluation of increasing shortness of breath, orthopnea, and edema. Upon further questioning it has come to light that she has had for near syncopal or syncopal episodes in the last 1 week and last evening she reports that her defibrillator fired. Troponin was elevated but has remained flat. The device was interrogated. Syncope/presyncope caused by tachyarrhythmias and VTach. Elevated Trop related to ICD firing. Man VTach likely related to the severe hypokalemia. Potassium on admission was 2.2 and her potassium was replaced. Creatinine was up from baseline. CXR showing CMG and pulmonary vascular congestion. Brain CT showed no acute findings. Renal ultrasound showed diffuse mild cortical thinning of both kidneys. Lower extremity venous Dopplers were negative for DVT. Knee x-ray shows severe left knee osteoarthritis with loose bodies. ABG did show 7.43/70/81 on 2 L. she has chronic CO2 retention. Ortho was consulted and patient had left knee injection. Cardiology and Nephrology also consulted. Cr peaked at 2.7 but improved to 2.1 which is closer to her baseline. She overall did well. Patient ambulating 42 feet with walker. She overall did well and was able to be discharged home on 01/24/2022. Status at Discharge Cognitive/behavioral status at discharge: stable Time Spent with Patient Time attestation: Total time spent providing and/or coordinating discharge services: 35 minutes Time spent: Greater than 30 minutes Exam Narrative: AF ? 97.9 157/88 66 20 94% 2L Gen - NARD sitting up in a chair Chest - distant clear breath sounds. CV - RRR S1/S2 Abd - soft.? Obese.? Nontender. Ext -? 1+ pedal edema. Psych - Nml mood and affect Skin - warm and dry. small denuded areas to the right hip DS: Data Data Completed and Pending Labs on day of discharge: Labs from last 24 hours 01/24/22 01/24/22 01/24/22 11:39 08:00 07:40 Sodium 141 Potassium 4.6 Chloride 95 L Carbon Dioxide 38 H Anion Gap 8 BUN 40 H Creatinine
== END 2022-01-24 16:01 | disposition home or self-care (01) | DRG 641 ==
LOC: ANHED 13:04 → ANHIMU 14:43 → ANH3MEDSUR 01-23 12:53
PROVIDERS: Physician Assistant; Admitting Provider Hospitalist; Emergency Provider Emergency Medicine; PCP Internal Medicine Infectious Disease; Visit Provider Internal Medicine
DX: E87.6 Hypokalemia (principal); I13.0 Hypertensive heart and chronic kidney disease with heart failure and stage 1 through stage 4 chronic kidney disease, or unspecified chronic kidney disease; I47.20 Ventricular tachycardia, unspecified; Z68.43 Body mass index [BMI] 50.0-59.9, adult; I43 Cardiomyopathy in diseases classified elsewhere; N17.9 Acute kidney failure, unspecified; I50.20 Unspecified systolic (congestive) heart failure; J96.12 Chronic respiratory failure with hypercapnia; J96.11 Chronic respiratory failure with hypoxia; J44.9 Chronic obstructive pulmonary disease, unspecified; E11.22 Type 2 diabetes mellitus with diabetic chronic kidney disease; E66.01 Morbid (severe) obesity due to excess calories; E78.5 Hyperlipidemia, unspecified; G47.33 Obstructive sleep apnea (adult) (pediatric); M17.12 Unilateral primary osteoarthritis, left knee; N18.30 Chronic kidney disease, stage 3 unspecified; R23.8 Other skin changes; R77.8 Other specified abnormalities of plasma proteins; Z45.02 Encounter for adjustment and management of automatic implantable cardiac defibrillator; Z79.4 Long term (current) use of insulin; Z20.822 Contact with and (suspected) exposure to COVID-19; Z95.810 Presence of automatic (implantable) cardiac defibrillator; Z99.81 Dependence on supplemental oxygen; Z91.81 History of falling; Z79.82 Long term (current) use of aspirin; Z90.49 Acquired absence of other specified parts of digestive tract
CPT/HCPCS: 20610; 36415; 36600; 70450; 71045; 73562; 76775; 80048; 80053; 80069; 81001; 82805; 82948; 83036; 83735; 83880; 84132; 84484; 85025; 85055; 85610; 85730; 87637; 93005; 93970; 94640; 96365; 97110; 97161; 97530; 99285; A9270; J1644; J1815; J1940; J3301; J3480; J7040